=== PATIENT | female | born 1975 | race Caucasian/White ===

== ENCOUNTER 2022-10-23 15:06 | Outpatient (OUT) | payer OTHER, SELFPAY ==
[2022-10-23 15:40] LABS: Basophils Absolute Auto 0.1 10^3/uL (0.0-0.1); Basophils Percent Auto 1.1 % (0.2-2.0); Eosinophils Absolute Auto 0.1 10^3/uL (0.0-0.7); Eosinophils Percent Auto 2.2 % (0.9-7.0); Hematocrit 41.7 % (36.0-48.0); Hemoglobin 13.8 g/dL (12.0-16.0); Immature Granulocytes Abs Auto 0.01 10^3/uL (0.00-0.03); Immature Granulocytes Pct Auto 0.2 % (0.0-0.5); Lymphocytes Absolute Auto 1.5 10^3/uL (1.2-3.8); Lymphocytes Percent Auto 32.4 % (20.5-60.0); Mean Corpuscular HGB Conc 33.1 g/dL (29.9-35.2); Mean Corpuscular Hemoglobin 31.9 pg (26.7-34.0); Mean Corpuscular Volume 96.5 fL (81.0-99.0); Mean Platelet Volume 9.7 fL (9.5-13.5); Monocytes Absolute Auto 0.3 10^3/uL (0.3-0.8); Monocytes Percent Auto 7.4 % (1.7-12.0); Neutrophils Absolute Auto 2.6 10^3/uL (1.4-6.5); Neutrophils Percent Auto 56.7 % (43.0-75.0); Platelet Count 218 10^3/uL (150-450); Red Blood Count 4.32 10^6/uL (4.20-5.40); Red Cell Distribution Width 11.9 % (11.0-15.0); White Blood Count 4.6 10^3/uL (4.0-11.0)
[2022-10-23 15:50] LABS: Estimated Average Glucose 108 mg/dL; Glycohemoglobin A1C 5.4 % (4.5-6.2)
[2022-10-23 16:16] LABS: Alanine Aminotransferase 23 U/L (14-59); Albumin Globulin Ratio 1.2; Alkaline Phosphatase 28 U/L (46-116); Anion Gap 7.2; Aspartate Amino Transferase 13 U/L (15-37); BUN Creatinine Ratio 8.7; Bilirubin Direct 0.1 mg/dL (0.0-0.2); Bilirubin Total 0.4 mg/dL (0.2-1.0); Calcium 9.2 mg/dL (8.5-10.1); Carbon Dioxide 31.4 mmol/L (21.0-32.0); Chloride 104 mmol/L (98-107); Chol HDL Ratio 2.7; Cholesterol 202 mg/dL (<=200); Estimated GFR (African America >60 (>=60); Estimated GFR (Non-African Ame >60 (>=60); Globulin 3.3 g/dL; Glucose 131 mg/dL (74-106); HDL Cholesterol 74 mg/dL (40-60); Potassium 3.6 mmol/L (3.5-5.1); Sodium 139 mmol/L (136-145); Thyroid Stimulating Hormone 0.937 uIU/mL (0.358-3.740); Total Protein 7.3 g/dL (6.4-8.2); Triglycerides 92 mg/dL (<=150); VLDL CHOLESTEROL 18.4 mg/dL
== END 2022-10-23 15:07 | disposition home or self-care (01) ==
LOC: LAB 15:12
PROVIDERS: PCP Family Medicine; Visit Provider Family Medicine
DX: Z00.00 Encounter for general adult medical examination without abnormal findings (principal)
CPT/HCPCS: 36415; 80048; 80061; 80076; 83036; 84443; 85025

== ENCOUNTER 2023-05-03 19:59 | Outpatient (REF) | payer OTHER, SELFPAY ==
[2023-05-07 04:07] LABS: Age Gdln ACOG Testing Note (.); HPV Aptima Negative (Negative); IGP, Aptima HPV, rfx 16/18,45 Note (.)
== END 2023-05-03 20:00 | disposition home or self-care (01) ==
LOC: LAB 19:59
PROVIDERS: PCP Family Medicine; Visit Provider Obstetrics & Gynecology
DX: Z01.419 Encounter for gynecological examination (general) (routine) without abnormal findings (principal)
CPT/HCPCS: 87624; G0145

== ENCOUNTER 2023-06-11 10:56 | Outpatient (OUT) | payer OTHER, SELFPAY ==
--- OUTSIDE RECORDS SUMMARY | 2023-06-11 11:00 | XMS_ITS | CCD ---
Author Organization [facility] Care Team Providers Care Shroud Line Tier Name Role Phone ALEX MALIK Admitting Unavailable KING, ALEX Attending Unavailable AILEEN, DR LEVY Reid Primary Care Unavailable KING, ALEX Consulting Unavailable KADE, DR RAJESH Shirley Consulting Unavailable KING, ALEX Admitting Unavailable KING, ALEX Attending Unavailable AILEEN, DR LEVY Reid Primary Care Unavailable Rey Plata Consulting Unavailable KING, ALEX Consulting Unavailable KING, ALEX Admitting Unavailable KING, ALEX Attending Unavailable AILEEN, DR LEVY Reid Primary Care Unavailable KING, ALEX Consulting Unavailable KING, ALEX Attending Unavailable Problems Problem Classification Problem Date Documented Da te Episodic/Chronic Other screening for suspected conditions (not mental disorders or infectious disease) (12 sources) Encounter for screening mammogram for malignant neoplasm of breast; Translations: [Encounter for screening for malignant neoplasm of cervix] Onset: 12-12-2021 Episodic Residual codes; unclassified (1 source) Family history of malignant neoplasm of breast; Translations: [FAMILY HX MALIG NEOPLASM OF BREAST] Onset: 06-13-2022 Episodic Residual codes; unclassified (1 source) Family history of malignant neoplasm of ovary; Translations: [FAM HX MALIGNANT NEOPLASM OVARY] Onset: 06-13-2022 Episodic Residual codes; unclassified (1 source) Family history of malignant neoplasm of trachea, bronchus and lung; Translations: [FAM HX MALIG NEOPLSM TRACH BRON LNG] Onset: 06-13-2022 Episodic Results Test Name Value Interpretation Reference Range Facil ity MG MAMM SCREEN 3D JEWEL CADon 06-05-2022 MG MAMM SCREEN 3D JEWEL CAD Patient: LANETTE SHRESTHA Exam Date: 06/05/2022 : 1975 Gender:F Ordering : DR ALEX MALIK . Admission #: [id number] Family : Order #: [id number] CLICK HERE TO VIEW EXAM RADIOLOGY REPORT PROCEDURE: MAMMOGRAM SCREENING 3D BILATERAL CAD COMPARISON: MG MAMM DX 3D RT CAD, 12/12/2021. MAMMO POST BIOPSY RIGHT, 05/12/2021. MG MAMM SCREEN 3D JEWEL CAD, 04/29/2021. INDICATIONS: Screening mammography Calculator Name NCI Breast Cancer Risk Assessment Tool 5 Year Breast Cancer Risk 1.90% Lifetime Breast Cancer Risk 14.40% Personal Breast Cancer No Personal Ovarian Cancer No Treatments None Family Cancers Grandmother-maternal with breast cancer at age 65; Mother with ovarian cancer at age 67; Aunt-maternal with lung cancer at age 60. LOCATION: The [facility] BREAST COMPOSITION: Heterogeneously dense,which may obscure small masses. FINDINGS: DIAGNOSTIC CATEGORY 1--NEGATIVE. RIGHT BREAST: No significant suspicious finding. No significant change has occurred. LEFT BREAST: No significant suspicious finding. No significant change has occurred. RECOMMENDATIONS: ROUTINE MAMMOGRAM AND CLINICAL EVALUATION IN 12 MONTHS. PLEASE NOTE: A NORMAL MAMMOGRAM DOES NOT EXCLUDE THE POSSIBILITY OF BREAST CANCER. A CLINICALLY SUSPICIOUS PALPABLE LUMP SHOULD BE BIOPSIED. Dictated by: Rajesh Olvera M.D. on 06/05/2022 at 14:00 Approved by: Rajesh Olvera M.D. on 06/05/2022 at 14:03 [facility] PAP ACOG PANEL 2: 30 to 65on 05-06-2022 . . Normal [facility] Comment on above: Result Comment: Performed at: WB Performed By: #### [id number] #### [facility] [address] [address] [address] Maxi Franco Age Gdln ACOG Testing 30-65 Normal [facility] Comment on above: Performed By: #### [id number] #### [facility] [address] [address] [address] Maxi Franco DIAGNOSIS: Comment Normal [facility] Comment on above: Result Comment: NEGATIVE FOR INTRAEPITHE LIAL LESION OR MALIGNANCY. Performed at: WB Performed By: #### [id number] #### [facility] [address] [address] [address] Maxi Franco HPV Aptima Negative Normal Negative [facility] Comment on above: Result Comment: This nucleic acid amplif ication test detects fourteen high-risk HPV types (16,18,31,33,35,39,45,51,52,56,58,59,66,68) without differentiation. Performed at: =G Performed By: #### [id number] #### [facility] [address] [place] [address] Dr. Maxi Franco HPV Genotype Reflex Comment Normal [facility] Comment on above: Result Comment: Criteria not met, HPV Ge notype not performed. Performed at: WB Performed By: #### [id number] #### [facility] [address] [place] [address] Dr. Maxi Franco Methodology: Comment Normal [facility] Comment on above: Result Comment: This liquid based ThinPr ep(R) pap test was screened with the use of an image guided system. Performed at: WB Performed By: #### [id number] #### [facility] [address] [place] [address] Dr. Maxi Franco Note: Comment Normal [facility] Comment on above: Result Comment: The Pap smear is a scree luis manuel test designed to aid in the detection of premalignant and malignant conditions of the uterine cervix. It is not a diagnostic procedure and should not be used as the sole means of detecting cervical cancer. Both false-positive and false-negative reports do occur. . Performed at: WB Performed By: #### [id number] #### [facility] [address] [place] [address] Dr. Maxi Franco Performed by: Comment Normal [facility] Comment on above: Result Comment: Mark Mitchell Cytotechn ologist (ASCP) Performed at: WB Performed By: #### [id number] #### [facility] [address] [place] [address] Dr. Maxi Franco Specimen adequacy: Comment Normal [facility] Comment on above: Result Comment: Satisfactory for evaluat ion. Endocervical and/or squamous metaplastic cells (endocervical component) are present. Performed at: WB Performed By: #### [id number] #### [facility] [address] [place] [address] Dr. Maxi Franco MG MAMM DX 3D RT CADon 12-12 MG MAMM DX 3D RT CAD Patient: LANETTE SHRESTHA Exam Date: 12/12/2021 : 1975 Gender:F Ordering : DR ALEX MALIK . Admission #: [id number] Family : Order #: [id number] CLICK HERE TO VIEW EXAM RADIOLOGY REPORT PROCEDURE: MAMMOGRAM DIAGNOSTIC 3D RIGHT CAD COMPARISON: MAMMO POST BIOPSY RIGHT, 05/12/2021. MG MAMM SCREEN 3D JEWEL CAD, 04/29/2021. INDICATIONS: Abnormal findings on diagnostic imaging of breast Calculator Name NCI Breast Cancer Risk Assessment Tool 5 Year Breast Cancer Risk 1.90% Lifetime Breast Cancer Risk 14.40% Personal Breast Cancer No Personal Ovarian Cancer No Treatments None Family Cancers Grandmother-maternal with breast cancer at age 65; Mother with ovarian cancer at age 67; Aunt-maternal with lung cancer at age 60. LOCATION: [facility] BREAST COMPOSITION: Heterogeneously dense,which may obscure small masses. FINDINGS: DIAGNOSTIC CATEGORY 2--BENIGN FINDING. NO CHANGE FROM COMPARISON. Scattered benign-appearing nodules are present. Scattered benign-appearing calcifications are present. Stable micro clip marker upper outer quadrant, posterior breast. RECOMMENDATIONS: ROUTINE MAMMOGRAM AND CLINICAL EVALUATION , bilateral screening mammogram is due April of 2022. PLEASE NOTE: A NORMAL MAMMOGRAM DOES NOT EXCLUDE THE POSSIBILITY OF BREAST CANCER. A CLINICALLY SUSPICIOUS PALPABLE LUMP SHOULD BE BIOPSIED. Dictated by: Rey Plata MD on 12/12/2021 at 09:23 Approved by: Rey Plata MD on 12/12/2021 at 09:47 Normal [facility] Encounters Encounter Date Encounter Type Care Provider Facility Start: 05-03-2023 End: 05-03-2023 ambulatory ALEX KING Not Available Start: 06-05-2022 End: 06-06-2022 ambulatory ALEX KING Facility:[facility] Start: 04-29-2022 End: 04-29-2022 ambulatory ALEX KING Facility:[facility] Start: 12-12-2021 End: 12-13-2021 ambulatory ALEX KING Facility:[facility] Payers Date Payer Category Payer Unknown [id number] 2.16.84 [id number] 1975 Unknown [id number] 2.16.84 [id number] 1975 Unknown [id number] 2.16.84 [id number] 1975 Unknown [id number] 2.16.84 [id number] 1960 Private Health Insurance [id number] Summary Purpose Family History No Family History Records FoundNo Family History Records Found Advance Directives No Advanced Directives Records FoundNo Advanced Directives Records Found Additional Source Comments INFORMATION SOURCE (unrecogn ized section and content) DATE CREATED AUTHOR 06/14/2022 [facility] DATE CREATED AUTHOR AUTHOR'S FÉLIXIZ ATREX 05/04/2023 [facility] dicor Specialists [facility] FOR RECORDS PERTAINING TO PATIENTS WHO ARE OR HAVE BEEN ENROLLED IN A CHEMICAL DEPENDENCY/SUBSTANCEABUSE PROGRAM, SOME INFORMATION MAY BE OMITTED. This clinical summary was aggregated from multiple sources. Caution should be exercised in using it in the provision of clinical care. This summary normalizes information from multiple sources, and as a consequence, information in this document may materially change the coding, format and clinical context of patient data. In addition, data may be omitted in some cases. CLINICAL DECISIONS SHOULD BE BASED ON THE PRIMARY CLINICAL RECORDS. [facility] [employer] provides no warranty or guarantee of the accuracy or completeness of information in this document.
--- NOTE | 2023-06-11 11:03 | MM_ITS ---
Patient Name: LANETTE SHRESTHA MR#: [id number] : 1975 Exam Date: 06/11/2023 Ordering Doctor: DR Gutierrez Regalado . RADIOLOGY REPORT PROCEDURE: MM TOMOSYNTHESIS SCREENING BI COMPARISON: MG MAMM SCREEN 3D JEWEL CAD, 06/05/2022. MG MAMM DX 3D RT CAD, 12/12/2021. MAMMO POST BIOPSY RIGHT, 05/12/2021. MG MAMM SCREEN 3D JEWEL CAD, 04/29/2021. INDICATIONS: Screening Calculator Name NCI Breast Cancer Risk Assessment Tool 5 Year Breast Cancer Risk 1.80% Lifetime Breast Cancer Risk 14.00% Personal Breast Cancer No Personal Ovarian Cancer No Treatments None Family Cancers Grandmother-maternal with breast cancer at age 65; Mother with ovarian cancer at age 67; Aunt-maternal with lung cancer at age ~60. LOCATION: [facility] BREAST COMPOSITION: Heterogeneously dense,which may obscure small masses. FINDINGS: DIAGNOSTIC CATEGORY 1--NEGATIVE. RIGHT BREAST: No significant suspicious finding. No significant change has occurred. LEFT BREAST: No significant suspicious finding. No significant change has occurred. RECOMMENDATIONS: ROUTINE MAMMOGRAM AND CLINICAL EVALUATION IN 12 MONTHS. PLEASE NOTE: A NORMAL MAMMOGRAM DOES NOT EXCLUDE THE POSSIBILITY OF BREAST CANCER. A CLINICALLY SUSPICIOUS PALPABLE LUMP SHOULD BE BIOPSIED. Dictated by: Rajesh Olvera M.D. on 06/11/2023 at 15:15 Approved by: Rajesh Olvera M.D. on 06/11/2023 at 15:17
== END 2023-06-11 10:57 | disposition home or self-care (01) ==
LOC: MAMMO 10:56
PROVIDERS: PCP Family Medicine; Visit Provider Obstetrics & Gynecology
DX: Z12.31 Encounter for screening mammogram for malignant neoplasm of breast (principal); Z80.3 Family history of malignant neoplasm of breast; Z80.1 Family history of malignant neoplasm of trachea, bronchus and lung; Z80.41 Family history of malignant neoplasm of ovary
CPT/HCPCS: 77063; 77067

== ENCOUNTER 2023-11-12 14:08 | Outpatient (OUT) | payer OTHER, SELFPAY ==
--- OUTSIDE RECORDS SUMMARY | 2023-11-12 14:17 | XMS_ITS | CCD ---
Author Organization [facility] Care Team Providers Care Warp Dyeing Vat Tender Name Role Phone ALEX MALIK Admitting Unavailable KING, ALEX Attending Unavailable AILEEN, DR LEVY Reid Primary Care Unavailable KING, ALEX Consulting Unavailable KADE, DR RAJESH Shirley Consulting Unavailable KING, ALEX Admitting Unavailable KING, ALEX Attending Unavailable NADERER, DR LEVY Reid Primary Care Unavailable Rey Plata Consulting Unavailable KING, ALEX Consulting Unavailable KING, ALEX Admitting Unavailable KING, ALEX Attending Unavailable NADRUBEN, DR LEVY Reid Primary Care Unavailable KING, [...] : DR ALEX MALIK . Admission #: [id number] Family : Order #: [id number] CLICK HERE TO VIEW EXAM RADIOLOGY REPORT [...] lung cancer at age 59. LOCATION: [facility] BREAST COMPOSITION: Heterogeneously dense,which may obscure [...] Rajesh Olvera M.D. on 06/05/2022 at 14:03 [facility] PAP ACOG PANEL 2: 30 to 65on 05-06-2022 . . Normal [facility] Comment on above: Result Comment: Performed at: WB Performed By: #### [id number] #### [facility] [address] [address] [address] Maxi Franco Age Gdln ACOG Testing 30-65 Normal [facility] Comment on above: Performed By: #### [id number] #### [facility] [address] [place], [place] [address] Dr. Maxi Franco DIAGNOSIS: Comment Normal [facility] Comment on above: Result Comment: NEGATIVE FOR INTRAEPITHE LIAL LESION OR MALIGNANCY. Performed at: WB Performed By: #### [id number] #### [facility] [address] [id number] Maxi Franco HPV Aptima Negative Normal Negative [facility] Comment on above: Result Comment: This nucleic acid amplif ication test detects fourteen high-risk HPV types (16,18,31,33,35,39,45,51,52,56,58,59,66,68) without differentiation. Performed at: =G Performed By: #### [id number] #### [facility] [address] [place] [address] Dr. Maxi Franco HPV Genotype Reflex Comment Normal [facility] Comment on above: Result Comment: Criteria not met, HPV Ge notype not performed. Performed at: WB Performed By: #### [id number] #### [facility] [address] [place] [address] Dr. Maxi Franco Methodology: Comment Normal [facility] Comment on above: Result Comment: This liquid based ThinPr ep(R) pap test was screened with the use of an image guided system. Performed at: WB Performed By: #### [id number] #### [facility] [address] [place] [address] Dr. Maxi Franco Note: Comment Normal [facility] Comment on above: Result Comment: The [...] Performed at: WB Performed By: #### [id number] #### [facility] [address] [place] [address] Dr. Maxi Franco Performed by: Comment Normal [facility] Comment on above: Result Comment: Mark Mitchell Cytotechn ologist (ASCP) Performed at: WB Performed By: #### [id number] #### [facility] [address] [place] [address] Dr. Maxi Franco Specimen adequacy: Comment Normal [facility] Comment on above: Result Comment: Satisfactory for evaluat ion. Endocervical and/or squamous metaplastic cells (endocervical component) are present. Performed at: WB Performed By: #### [id number] #### [facility] [address] [place] [address] Dr. Maxi Franco MG MAMM DX 3D RT CADon 12-12 MG MAMM DX 3D RT CAD Patient: LANETTE SHRESTHA Exam Date: 12/12/2021 : 1975 Gender:F Ordering : DR ALEX MALIK . Admission #: [id number] Family : Order #: [id number] CLICK HERE TO VIEW EXAM RADIOLOGY REPORT [...] lung cancer at age 59. LOCATION: [facility] BREAST COMPOSITION: Heterogeneously dense,which may obscure [...] MD on 12/12/2021 at 09:47 Normal [facility] Encounters Encounter Date Encounter Type Care Provider Facility Start: 05-03-2023 End: 05-03-2023 ambulatory ALEX KING Not Available Start: 06-05-2022 End: 06-06-2022 ambulatory ALEX KING Facility:[facility] Start: 04-29-2022 End: 04-29-2022 ambulatory ALEX KING Facility:[facility] Start: 12-12-2021 End: 12-13-2021 ambulatory ALEX KING Facility:[facility] Payers Date Payer Category Payer Unknown [id number] 2.16.84 [id number] 1975 Unknown [id number] 2.16.84 [id number] 1975 Unknown [id number] 2.16.84 [id number] 1975 Unknown [id number] 2.16.84 [id number] 1960 Private Health Insurance [id number] Summary Purpose Family History No Family History Records FoundNo Family History Records Found Advance Directives No Advanced Directives Records FoundNo Advanced Directives Records Found Additional Source Comments INFORMATION SOURCE (unrecogn ized section and content) DATE CREATED AUTHOR 06/14/2022 [facility] DATE CREATED AUTHOR AUTHOR'Noman VICTOR 05/04/2023 [facility] dical Specialists [facility] FOR RECORDS PERTAINING TO PATIENTS WHO [...] BE BASED ON THE PRIMARY CLINICAL RECORDS. [facility] [employer] provides no warranty or guarantee of the accuracy or completeness of information in this document.
[2023-11-12 14:36] LABS: Basophils Percent Auto 0.8 % (0.2-2.0); Eosinophils Absolute Auto 0.1 10^3/uL (0.0-0.7); Eosinophils Percent Auto 2.1 % (0.9-7.0); Hematocrit 40.5 % (36.0-48.0); Hemoglobin 13.6 g/dL (12.0-16.0); Lymphocytes Absolute Auto 1.3 10^3/uL (1.2-3.8); Lymphocytes Percent Auto 34.4 % (20.5-60.0); Mean Corpuscular HGB Conc 33.6 g/dL (29.9-35.2); Mean Corpuscular Hemoglobin 32.2 pg (26.7-34.0); Mean Platelet Volume 9.9 fL (9.5-13.5); Monocytes Absolute Auto 0.3 10^3/uL (0.3-0.8); Monocytes Percent Auto 7.9 % (1.7-12.0); Neutrophils Absolute Auto 2.1 10^3/uL (1.4-6.5); Neutrophils Percent Auto 54.8 % (43.0-75.0); Platelet Count 208 10^3/uL (150-450); Red Blood Count 4.22 10^6/uL (4.20-5.40); Red Cell Distribution Width 11.6 % (11.0-15.0); White Blood Count 3.9 10^3/uL (4.0-11.0)
[2023-11-12 15:08] LABS: Alanine Aminotransferase 24 U/L (14-59); Albumin Globulin Ratio 1.2; Albumin Level 3.7 g/dL (3.4-5.0); Alkaline Phosphatase 41 U/L (46-116); Anion Gap 9.1; Aspartate Amino Transferase 18 U/L (15-37); BUN Creatinine Ratio 9.9; Bilirubin Direct 0.1 mg/dL (0.0-0.2); Bilirubin Total 0.3 mg/dL (0.2-1.0); Calcium 9.1 mg/dL (8.5-10.1); Carbon Dioxide 32.8 mmol/L (21.0-32.0); Chloride 104 mmol/L (98-107); Cholesterol 196 mg/dL (<=200); Estimated GFR (African America >60 (>=60); Estimated GFR (Non-African Ame >60 (>=60); Glucose 126 mg/dL (74-106); HDL Cholesterol 66 mg/dL (40-60); Potassium 3.9 mmol/L (3.5-5.1); Sodium 142 mmol/L (136-145); Thyroid Stimulating Hormone 1.167 uIU/mL (0.358-3.740); Total Protein 6.7 g/dL (6.4-8.2); Triglycerides 130 mg/dL (<=150)
[2023-11-12 15:23] LABS: Estimated Average Glucose 108 mg/dL; Glycohemoglobin A1C 5.4 % (4.5-6.2)
== END 2023-11-12 14:09 | disposition home or self-care (01) ==
LOC: LAB 14:11
PROVIDERS: PCP Family Medicine; Visit Provider Family Medicine
DX: Z00.00 Encounter for general adult medical examination without abnormal findings (principal)
CPT/HCPCS: 36415; 80048; 80061; 80076; 83036; 84443; 85025

== ENCOUNTER 2023-12-13 09:51 | Outpatient (OUT) | payer OTHER, SELFPAY ==
--- OUTSIDE RECORDS SUMMARY | 2023-12-13 10:10 | XMS_ITS | CCD ---
Author Organization [facility] Care Team Providers Care Wall Crane Operator Name Role Phone KING, ALEX Admitting Unavailable KING, ALEX Attending Unavailable AILEEN, DR ROWDY Reid Primary Care Unavailable KING, ALEX Consulting Unavailable KADE, DR RAJESH Shirley Consulting Unavailable KING, ALEX Admitting Unavailable KING, ALEX Attending Unavailable AILEEN, DR ROWDY Reid Primary Care Unavailable Rey Plata Consulting Unavailable KING, ALEX Consulting Unavailable KING, ALEX Admitting Unavailable KING, ALEX Attending Unavailable AILEEN, DR ROWDY Reid Primary Care Unavailable KING, ALEX Consulting Unavailable MD Rowdy Gallagher Primary Care Provider DO Sergey Valenzuela Attending Provider ALEX MALIK Attending Unavailable ROWDY GALLAGHER Attending Unavailable CHERRIE MCKEON Attending Unavailable SERGEY VALENZUELA MARC Referring Unavailable Sergey Valenzuela Admitting Unavailab Sergey Cameron Attending Unavailab Rowdy Blankenship Primary Care Unavailable Sergey Valenzuela Attending Unavailab Rowdy Blankenship Primary Care Unavailable Sergey Valenzuela Admitting Unavailab le Allergies Allergy Classification Reported Allergen(s) Allergy Type Date of Onset Reaction(s) Facility (1 source) Unable to Assess Drug allergy (disorder) 12-10-2023 [facility] Repository Problems Problem Classification Problem Date Documented Da te Episodic/Chronic Other eye disorders (1 source) Third [oculomotor] nerve palsy, left eye; Translations: [Third [oculomotor] nerve palsy, left eye] Onset: 11-18-2023 Episodic Other screening for suspected conditions (not mental [...] Name Value Interpretation Reference Range Facil ity MR head/brain wo/w conon MR head/brain wo/w con [facility] [place] [address] [place] [address] MRI Report Signed Patient: Leesa Shrestha MR#: [id number] 0 : 1975 Acct:[id number] Age/Sex: 48 / F ADM Date: 12/10/23 Loc: MR Room: Type: [facility] Attending Dr: Sergey Valenzuela DO Copies to: Sergey Valenzuela DO Ordering Provider: Sergey Valenzuela DO Date of Service: 12/10/23 MR/MR head/brain wo/w con: H49.02, Z82.49 MRI BRAIN WITHOUT AND WITH INTRAVENOUS CONTRAST CLINICAL DATA: Left thigh blurred vision for the past month. COMPARISON: CT 11/18/2023 Multiecho, multiplanar imaging of the brain was performed before and after intravenous administration of 15 mL of ProHance. The ventricles are normal in size and position. There are no areas of abnormal signal intensity or enhancement within the supra or infratentorial brain. There is no restricted diffusion to suggest a recent ischemic event. No extra-axial collections or mass effect are seen. No midline abnormalities are noted. The imaged paranasal sinuses and mastoid air cells are clear. MR/MR head/brain wo/w con IMPRESSION: NO ACUTE INTRACRANIAL FINDINGS. Impression dictated by: Rica Caldera M.D.12/10/2023 8:14 AM Dictation Location: RADIO--10 Transcribed By: [facility] 12/10/23813 Dictated By: Rica Caldera MD 12/10/23801 Signed By: 12/10/23813 Normal [facility] CT angio neckon 11-18-2023 CT angio neck [facility] [place] [address] [place] [address] CT Scan Report Signed Patient: Leesa Shrestha MR#: [id number] 0 : 1975 Acct:[id number] Age/Sex: 47 / F ADM Date: 11/18/23 Loc: CT Room: Type: [facility] Attending Dr: Sergey Valenzuela DO Copies to: Sergey Valenzuela DO Ordering Provider: Sergey Valenzuela DO Date of Service: 11/18/23 CT/CT angio neck: OCULARMOTOR ([id number]) CT/CT angio head: OCULARMOTOR CT angio head, CT angio neck 11/18/2023 4:51 PM SIGNS AND SYMPTOMS: 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 Blurred vision in left eye CONTRAST: 90 mL of intravenous Isovue-370 TECHNIQUE: Multi-detector CT angiography axial slices of the head and neck were obtained before and during intravenous administration of IV contrast material. Sagittal, coronal, and 3-D reconstructions were performed and viewed on a separate workstation. CT was performed with one or more of the following dose reduction techniques: Automated exposure control, adjustment of the mA and/or kV according to patient size, or use of iterative reconstruction technique. Stenoses were measured using the NASCET criteria. COMPARISON: None. FINDINGS: Noncontrast head CT: There is no shift of the midline structures, acute intracranial bleeding, mass effects, or evidence of acute ischemia. The ventricular system is normal in size. The brainstem and the cerebellum are unremarkable. The visualized intraorbital contents, the visualized paranasal sinuses, and the visualized soft tissue in the infratemporal spaces show no abnormality. The osseous structures in the skull base and the calvarium show no acute abnormality. CTA HEAD: The superior cerebellar arteries, posterior inferior cerebellar arteries, and the basilar artery are within normal limits. The posterior cerebral arteries are unremarkable. The intracranial segments of the internal carotid arteries are within normal limits. There are normal anterior and middle cerebral arteries. Anterior communicating artery is patent. Posterior communicating arteries are present. The deep venous system and dural venous systems appear to be patent. No bony abnormalities are appreciated. CTA NECK: There is a normal three-vessel arch. The subclavian arteries are within normal limits. The vertebral arteries arise from the subclavian arteries and are normal in course and caliber up to the skull base. The common and internal carotid arteries are within normal limits. Visualized lung parenchyma is clear. Mild degenerative changes are noted in the cervical spine are greatest at C5-C6 and C6-C7. No acute bony abnormalities are identified. The paraspinous soft tissues are within normal limits. CT/CT angio head IMPRESSION: No acute intracranial pathology. No evidence of focal stenosis, aneurysmal dilatation, dissection or occlusion. Impression dictated by: Doc Gallardo M.D.11/18/2023 5:47 PM Dictation Location: [place] [address] Transcribed By: [facility] 11/18/231746 Dictated By: Doc Gallardo II, MD 11/18/231739 Signed By: 11/18/231746 Normal [facility] MG MAMM SCREEN 3D JEWEL CADon 06-05-2022 MG MAMM SCREEN 3D JEWEL CAD Patient: LEESA SHRESTHA Exam Date: 06/05/2022 : 1975 Gender:F Ordering : DR ALEX MALIK . Admission #: [id number] Family : Order #: [id number] CLICK HERE TO VIEW EXAM RADIOLOGY REPORT [...] lung cancer at age 59. LOCATION: [facility] BREAST COMPOSITION: Heterogeneously dense,which may obscure small [...] Rajesh Olvera M.D. on 06/05/2022 at 14:03 [facility] PAP ACOG PANEL 2: 30 to 65on 05-06-2022 . . Normal [facility] Comment on above: Result Comment: Performed at: WB Performed By: #### [id number] #### [facility] [address] [address] [address] Maxi Franco Age Gdln ACOG Testing 30-65 [facility] Comment on above: Performed By: #### [id number] #### [facility] [address] [address] [address] Maxi Franco DIAGNOSIS: Comment [facility] Comment on above: Result Comment: NEGATIVE FOR INTRAEPITHE LIAL LESION OR MALIGNANCY. Performed at: WB Performed By: #### [id number] #### [facility] [address] [address] [address] Maxi Franco HPV Aptima Negative Normal Negative [facility] Comment on above: Result Comment: This nucleic acid amplif ication test detects fourteen high-risk HPV types (16,18,31,33,35,39,45,51,52,56,58,59,66,68) without differentiation. Performed at: =G Performed By: #### [id number] #### [facility] [address] [address] [address] Maxi Franco HPV Genotype Reflex Comment Normal [facility] Comment on above: Result Comment: Criteria not met, HPV Ge notype not performed. Performed at: WB Performed By: #### [id number] #### [facility] [address] [address] [address] Maxi Franco Methodology: Comment Normal [facility] Comment on above: Result Comment: This liquid based ThinPr ep(R) pap test was screened with the use of an image guided system. Performed at: WB Performed By: #### [id number] #### [facility] [address] [place] [address] Dr. Maxi Franco Note: Comment [facility] Comment on above: Result Comment: The Pap smear is a scree luis manuel test designed to aid in the detection of premalignant and malignant conditions of the uterine cervix. It is not a diagnostic procedure and should not be used as the sole means of detecting cervical cancer. Both false-positive and false-negative reports do occur. . Performed at: WB Performed By: #### [id number] #### [facility] [address] [place] [address] Dr. Maxi Franco Performed by: Comment Normal [facility] Comment on above: Result Comment: Mark Mitchell Cytotechn ologist (ASCP) Performed at: WB Performed By: #### [id number] #### [facility] [address] [place] [address] Dr. Maxi Franco Specimen adequacy: Comment Normal [facility] Comment on above: Result Comment: Satisfactory for evaluat ion. Endocervical and/or squamous metaplastic cells (endocervical component) are present. Performed at: WB Performed By: #### [id number] #### [facility] [address] [place] [address] Dr. Maxi Franco MG MAMM DX 3D RT CADon 12-12 MG MAMM DX 3D RT CAD Patient: LEESA SHRESTHA Exam Date: 12/12/2021 : 1975 Gender:F Ordering : DR ALEX MALIK . Admission #: [id number] Family : Order #: [id number] CLICK HERE TO VIEW EXAM RADIOLOGY REPORT [...] lung cancer at age 59. LOCATION: [facility] BREAST COMPOSITION: Heterogeneously dense,which may obscure small [...] PALPABLE LUMP SHOULD BE BIOPSIED. Dictated by: Rye Plata MD on 12/12/2021 at 09:23 Approved by: Rey Plata MD on 12/12/2021 at 09:47 Normal [facility] Vital Signs Date Time Vital Sign Value Performing Clinician Faci lity 12-10-2023 07:28-0400 Body height 162.56 cm MD Rowdy Gallagher Work Phone: [facility] 12-10-2023 07:28-0400 Body weight 72.12 kg MD Rowdy Gallagher Work Phone: [facility] Encounters Encounter Date Encounter Type Care Provider Facility Start: 12-10-2023 End: 12-10-2023 Patient encounter procedure MD Rowdy Gallagher Work Phone: [facility] [place] Work Phone: Start: 12-10-2023 End: 12-10-2023 ambulatory MD Rowdy Gallagher Work Phone: [facility] Work Phone: Start: 11-18-2023 End: 11-18-2023 Patient encounter procedure MD Rowdy Gallagher Work Phone: [facility] [place] Work Phone: Start: 11-18-2023 End: 11-18-2023 ambulatory MD Rowdy Gallagher Work Phone: [facility] Work Phone: Start: 11-18-2023 End: 11-18-2023 ambulatory SERGEY VALENZUELA Not Available Start: 11-17-2023 End: 11-17-2023 ambulatory CHERRIE MCKEON Not Available Start: 11-12-2023 End: 11-12-2023 ambulatory ROWDY GALLAGHER Not Available Start: 05-03-2023 End: 05-03-2023 ambulatory ALEX KING Not Available Start: 06-05-2022 End: 06-06-2022 ambulatory ALEX KING Facility:[facility] Start: 04-29-2022 End: 04-29-2022 ambulatory ALEX KING Facility:[facility] Start: 12-12-2021 End: 12-13-2021 ambulatory ALEX KING Facility:[facility] Procedures Date Procedure Procedure Detail Performing Clinician Start: 12-10-2023 MRI of head MD Rowdy dykes Work Phone: Start: 11-18-2023 CT angiography of head MD Rowdy Gallagher Work Phone: Start: 11-18-2023 CT angiography of ne ck vessels MD Rowdy Gallagher Work Phone: Payers Date Payer Category Payer Self-pay 1975 Unknown [id number] 1975 Unknown [id number] 1975 Unknown [id number] 1975 Unknown [id number] 1975 Unknown [id number] 1975 Unknown [id number] 1975 Unknown [id number] 1960 Private Health Insurance [id number] Unknown O [id number] Unknown [place] BC/BS [id number] Unknown [id number] Unknown [id number] Social History Date Type Detail Facility Tobacco smoking stat [facility] Unknown if ever smoked [facility] Work Phone: Start: 1975 Sex Assigned At Female F [facility] Evaluation note Note Date & Type Note Facility Evaluation note No assessment information availa ble [facility] Work Phone: Summary Purpose Family History No Family History Records FoundNo Family History Records FoundNo Family History Records Found Advance Directives No Advanced Directives Records Found Advance Directive Response Recorded Date/ Time Advance Directives No November 18, 2023 8:09pm Advance Directive Response Recorded Date/ Time Advance Directives No November 4:10pm Chief Complaint and Reason for Visit Chief Complaint H49.02 Z82.49 Chief Complaint H49.02 Z82.49 h49.02 z82.49 Additional Source Comments INFORMATION SOURCE (unrecogn ized section and content) DATE CREATED AUTHOR 06/14/2022 [facility] DATE CREATED AUTHOR AUTHOR'S ORGANIZ ATION 11/19/2023 [facility] EPIC DATE CREATED AUTHOR AUTHOR'S ORGANIZ ATION 12/12/2023 [facility] Care Teams (unrecognized sec tion and content) Team Status: Active Member Role Status Dates Rowdy Gallagher MD Primary Care Provider Active Team Status: Inactive Member Role Status Dates Rowdy Gallagher MD Primary Care Provider Active S tart: November 18, 2023 End: November 18, 2023 Sergey Valenzuela DO Attending Provider Active Start: November 18, 2023 End: November 18, 2023 Team Status: Inactive Member Role Status Dates Rowdy Gallagher MD Primary Care Provider Active S tart: December 10, 2023 End: December 10, 2023 Sergey Valenzuela DO Attending Provider Active Start: December 10, 2023 End: December 10, 2023 Goals (unrecognized section and content) Goals may be documented in a n alternate sectionGoals may be documented in an alternate section FOR RECORDS PERTAINING TO PATIENTS WHO ARE [...] BE BASED ON THE PRIMARY CLINICAL RECORDS. [facility] [employer] provides no warranty or guarantee of the accuracy or completeness of information in this document.
== END 2023-12-13 09:52 | disposition home or self-care (01) ==
LOC: PST 09:51
PROVIDERS: PCP Family Medicine; Visit Provider Surgery
DX: Z01.818 Encounter for other preprocedural examination (principal); Z12.11 Encounter for screening for malignant neoplasm of colon

== ENCOUNTER 2024-05-04 19:48 | Outpatient (REF) | payer OTHER, SELFPAY ==
--- OUTSIDE RECORDS SUMMARY | 2024-05-04 19:52 | XMS_ITS | CCD ---
Author Organization [facility] Care Team Providers Care [employer] Utility Supervisor Name Role Phone KING, ALEX Admitting Unavailable KING, ALEX Attending Unavailable DR ROWDY GALLAGHER Primary Care Unavailable KING, ALEX Consulting Unavailable KADE, DR RAJESH Shirley Consulting Unavailable KING, ALEX Admitting Unavailable KING, ALEX Attending Unavailable AILEEN, DR ROWDY Reid Primary Care Unavailable Rey Plata Consulting Unavailable KING, ALEX Consulting Unavailable KING, ALEX Admitting Unavailable KING, ALEX Attending Unavailable AILEEN, DR ROWDY Reid Primary Care Unavailable KING, ALEX Consulting MD Rowdy Thakur Primary Care Provider [phone] DO Sergey Valenzuela Attending Provider Sergey Valenzuela Admitting UnavailSergey Small Attending Rowdy Min Primary Care Unavailable Sergey Valenzuela Attending Rowdy Min Primary Care Unavailable Sergey Valenzuela Admitting Unavailab Rowdy Blankenship MD Primary Care Provider [phone] ALEX REGALADO Attending Unavailable ROWDY GALLAGHER Attending Unavailable CHERRIE LONG Attending Unavailable SERGEY VALENZUELA Attending ROWDY Thakur Referring SERGEY Griffith Attending ROWDY Thakur Attending Unavailable Allergies Allergy Classification Reported Allergen(s) Allergy Type Date of Onset Reaction(s) Facility (1 source) Unable to Assess Drug allergy (disorder) 12-10-2023 [facility] Repository Medications Current Medications Medication Drug Class(es) Dates Sig (Normalized) Sig (Original) ALPRAZolam 0.5 mg oral tablet (2 sources) Benzodiazepine Start: 01-06-2024 End: 01-11-2024 take 1 tablet by mouth three times daily as needed for anxiety ALPRAZolam (Xanax) 0.5 MG tablet Indications: Anxiety with flying (CMS/HCC) Take 1 tablet (0.5 mg) by mouth 3 (three) times a day as needed for anxiety for up to 5 days 15 tablet 01/06/2024 01/11/2024 Active bisacodyl 5 mg delayed release oral tablet (2 sources) Stimulant Laxative Start: 11-17-2023 End: 11-17-2023 take 1 tablet by mouth once bisacodyl (Dulcolax) 5 MG EC tablet Indications: Screening for malignant neoplasm of colon Take 1 tablet (5 mg) by mouth 1 time for 1 dose Do not crush, chew, or split. Take as detailed on clinic hand out for colonoscopy prep 1 tablet 11/17/2023 11/17/2023 Active levoFLOXacin 750 mg oral tablet (2 sources) Quinolone Antimicrobial Start: 01-06-2024 End: 01-13-2024 take 1 tablet by mouth once daily levoFLOXacin (Levaquin) 750 MG tablet Indications: Acute bronchitis due to other specified organisms Take 1 tablet (750 mg) by mouth Daily for 7 days 7 tablet 01/06/2024 01/13/2024 Active montelukast 10 mg oral tablet (17 sources) Leukotriene Receptor Antagonist Start: 01-12-2024 take 1 tablet by mouth once daily at bedtime montelukast (Singulair) 10 MG tablet Indications: Seasonal allergic rhinitis due to pollen TAKE 1 TABLET BY MOUTH EVERYDAY AT BEDTIME 21 tablet 4 01/12/2024 Active Start: 10-04-2023 take 1 tablet by dennis once daily at bedtime montelukast (Singulair) 10 MG tablet Indications: Seasonal allergic rhinitis due to pollen TAKE 1 TABLET BY MOUTH EVERYDAY AT BEDTIME 21 tablet 4 10/04/2023 Active Multiple Vitamin (Multi Vitamin) tablet (16 sources) Multiple Vitamin (Multi Vitamin) tablet 1 (one) time each day at the same time Active polyethylene glycol 3350 88847 mg powder for oral solution (2 sources) Osmotic Laxative Start: End: take 17 g by mouth once polyethylene glycol, PEG, 3350 (Glycolax) 17 GM/SCOOP powder Indications: Colonoscopy Take 238 g by mouth 1 (one) time for 1 dose Take as detailed from clinic hand out for colonoscopy prep 238 g 11/17/2023 11/17/2023 Active predniSONE 50 mg oral tablet (2 sources) Start: End: take 1 tablet by mouth once daily predniSONE (Deltasone) 50 MG tablet Indications: Acute bronchitis due to other specified organisms Take 1 tablet (50 mg) by mouth Daily for 6 days 6 tablet 01/06/2024 01/12/2024 Active rizatriptan 10 mg disintegrating oral tablet (18 sources) Serotonin-1b and Serotonin-1d Receptor Agonist Start: rizatriptan LEATHER WHITENER (Maxalt-LEATHER WHITENER) 10 MG disintegrating tablet Indications: Migraine without aura and without status migrainosus, not intractable (CMS/HCC) DISSOLVE 1 TABLET ON THE TONGUE NEEDED AT ONSET OF HEADACHE. MAY REPEAT IN 2 HOURS ONE TIME. 12 tablet 3 01/24/2024 Active Start: 09-08-2023 End: 01-24-2024 rizatriptan LEATHER WHITENER (Maxalt-LEATHER WHITENER) 10 MG disintegrating tablet Indications: Migraine without aura and without status migrainosus, not intractable (CMS/HCC) DISSOLVE 1 TABLET ON THE TONGUE NEEDED AT ONSET OF HEADACHE. MAY REPEAT IN 2 HOURS ONE TIME. 12 tablet 3 09/08/2023 01/24/2024 Discontinued SUMAtriptan 100 mg oral tablet (18 sources) Serotonin-1b and Serotonin-1d Receptor Agonist Start: 12-27-2023 End: 01-24-2024 take 1 tablet by mouth once daily, then take 1 tablet by mouth every two hours SUMAtriptan (Imitrex) 100 MG tablet Indications: Migraine without aura and without status migrainosus, not intractable (CMS/HCC) TAKE 1 TABLET BY MOUTH ONCE DAILY AT ONSET OF MIGRAINE MAY REPEAT 1 TABLET IN 2 HOURS 9 tablet 11 12/27/2023 01/24/2024 Discontinued End: 01-06-2024 SUMAtriptan (Imitrex) 25 MG tablet Take 25 mg by mouth 1 (one) time if needed for migraine May repeat dose once in 2 hours if no relief. Do not exceed 2 doses in 24 hours. 01/06/2024 Discontinued 24 hr venlafaxine 37.5 mg extended release oral capsule (16 sources) Serotonin and Norepinephrine Reuptake Inhibitor Start: 11-15-2023 take 1 capsule by mouth once daily venlafaxine XR (Effexor XR) 37.5 MG 24 hr capsule Indications: Menopausal and female climacteric states , Symptomatic menopausal or female climacteric states TAKE 1 CAPSULE BY MOUTH EVERY DAY 90 capsule 3 11/15/2023 Active Start: 10-22-2023 take 1 capsule by mo [facility] once daily venlafaxine XR (Effexor XR) 37.5 MG 24 hr capsule Take 37.5 mg by mouth Daily 10/22/2023 Active Problems Active Problems Problem Classification Problem Date Documented Da te Episodic/Chronic Acute bronchitis (5 sources) Acute infective bronchitis; Translations: [Acute bronchitis due to other specified organisms] Onset: 01-06-2024 01-06-2024 Episodic Anxiety disorders (5 sources) Anxiety; 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] Onset: 01-06-2024 01-06-2024 Chronic Blindness and vision defects (13 sources) Visual disturbance; Translations: [Unspecified visual disturbance] Onset: 11-16-2023 11-16-2023 Episodic Diabetes mellitus without complication (16 sources) Hyperglycemia; Translations: [Hyperglycemia, unspecified] Onset: 11-12-2023 11-12-2023 Episodic Gastritis and duodenitis (17 sources) Chronic superficial gastritis; Translations: [Chronic superficial gastritis without bleeding] Onset: 11-12-2023 11-12-2023 Chronic Headache; including migraine (18 sources) Migraine without aura, not refractory ; Translations: [Migraine without aura, not intractable, without status migrainosus] Onset: 02-26-2023 02-26-2023 Chronic Other eye disorders (1 source) Third [oculomotor] nerve palsy, left eye; Translations: [Third [oculomotor] nerve palsy, left eye] Onset: 11-18-2023 Episodic Other eye disorders (4 sources) Third cranial nerve weakness; Translations: [Third [oculomotor] nerve palsy, left eye] 12-30-2023 Episodic Other nervous system disorders (4 sources) H/O: migraine; Translations: [Personal history of other diseases of the nervous system and sense organs] 12-30-2023 Episodic Other upper respiratory disease (17 sources) Allergic rhinitis due to pollen; Translations: [Allergic rhinitis due to pollen] Onset: 11-12-2023 11-12-2023 Chronic Residual codes; unclassified (1 source) Family history [...] NEOPLSM TRACH BRON LNG] Onset: 06-13-2022 Episodic Residual codes; unclassified (4 sources) Family history of aneurysm of artery; Translations: [Family history of ischemic heart disease and other diseases of the circulatory system] 12-30-2023 Episodic Past or Other Problems Problem Classification Problem Date Documented Da te Episodic/Chronic Other circulatory disease (2 sources) Elevated blood pressure; Translations: [Elevated blood-pressure reading, without diagnosis of hypertension] 11-18-2023 Episodic Other screening for suspected conditions (not mental disorders or infectious disease) (16 sources) Encounter for screening mammogram for malignant neoplasm of breast; Translations: [Encounter for screening for malignant neoplasm of cervix] Onset: 12-12-2021 Episodic Results Test Name Value Interpretation Reference Range Facility MR head/brain wo/w conon MR head/brain wo/w con [facility] [address] MRI Report Signed Patient: Leesa Shrestha MR#: [id number] 0 : 1975 Acct:[id number] Age/Sex: 48 / F ADM Date: 12/10/23 Loc: MR Room: Type: [facility] Attending Dr: Sergey Valenzuela DO Copies to: [...] Rica Caldera M.D.12/10/2023 8:14 AM Dictation Location: [place] [address] Transcribed By: [facility] 12/10/23813 Dictated By: Rica Caldera MD 12/10/23801 Signed By: 12/10/23813 Normal [facility] CT angio neckon 11-18-[address] CT [address] [facility] [address] CT Scan Report Signed Patient: Leesa Shrestha MR#: [id number] 0 : 1975 Acct:[id number] Age/Sex: 47 / F ADM Date: 11/18/23 Loc: CT Room: Type: [facility] Attending Dr: Sergey Valenzuela DO Copies to: Sergey Valenzuela DO Ordering Provider: Sergey Valenzuela DO Date of Service: 11/18/23 CT/CT angio neck: OCULARMOTOR ([id number]) CT/CT angio head: OCULARMOTOR CT angio head, [...] Doc Gallardo M.D.11/18/2023 5:47 PM Dictation Location: [place] [address] Transcribed By: [facility] 11/18/231746 Dictated By: Doc Gallardo II, MD 11/18/231739 Signed By: 11/18/231746 Normal [facility] ALL CBC WITH AUTO DIFFon BASOPHILS ABSOLUTE AUTO 0.0 [facility] Basophils/100 WBC (Bld) 0.8 % 0.2 - 2.0 % [facility] Eosinophils/100 WBC (Bld) 2.1 % 0.9 - 7.0 % [facility] Erythrocyte distribution width (RBC) [Ratio] 11.6 % 11.0 - 15.0 % [facility] Hematocrit (Bld) [Volume fraction] 40.5 % 36.0 - 48.0 % [facility] Hemoglobin (Bld) [Mass/Vol] 13.6 g/dL 12.0 - 16.0 g/dL [facility] IMMATURE GRANULOCYTES ABS AUTO 0.00 [facility] Immature granulocytes/100 WBC (Bld) 0.0 % 0.0 - 0.5 % [facility] Interpretation and review of laboratory results Abnormal [facility] LYMPHOCYTES ABSOLUTE AUTO 1.3 [facility] Lymphocytes/100 WBC (Bld) 34.4 % 20.5 - 60.0 % [facility] MCH (RBC) [Entitic mass] 32.2 pg 26.7 - 34.[address] [facility] MCHC (RBC) [Mass/Vol] 33.6 g/dL 29.9 - 35.2 g/dL [facility] MCV (RBC) [Entitic vol] 96.0 fL 81.0 - 99.[address] [facility] MONOCYTES ABSOLUTE AUTO 0.3 [facility] Monocytes/100 WBC (Bld) 7.9 % 1.7 - 12.0 % [facility] NEUTROPHILS ABSOLUTE AUTO 2.1 [facility] Neutrophils/100 WBC (Bld) 54.8 % 43.0 - 75.0 % [facility] Platelet mean volume (Bld) [Entitic vol] 9.9 fL 9.5 - 13.5 fL [facility] EO # 0.1 [facility] PLT 208 [facility] TB RBC 4.22 [facility] WBC 3.9 Low [facility] MG MAMM SCREEN 3D JEWEL CADon 06-05-2022 MG MAMM SCREEN 3D JEWEL CAD Patient: LEESA SHRESTHA Exam Date: 06/05/2022 : 1975 Gender:F Ordering : DR ALEX REGALADO . Admission #: [id number] Family : Order #: [id number] CLICK HERE TO VIEW EXAM RADIOLOGY REPORT [...] with lung cancer at age 59. LOCATION: [facility] BREAST COMPOSITION: Heterogeneously dense,which may obscure small [...] Rajesh Olvera M.D. on 06/05/2022 at 14:03 Normal [facility] PAP ACOG PANEL 2: 30 to 65on 05-06-2022 . . Normal [facility] Comment on above: Result Comment: Perf ormed at: WB Performed By: #### [id number] #### [facility] [address] [place] [address] [address] Maxi Franco Age Gdln ACOG Testing 30-65 Normal [facility] Comment on above: Performed By: #### [id number] #### [facility] [address] [place] [address] [address] Maxi Franco DIAGNOSIS: Comment Normal [facility] Comment on above: Result Comment: NEGA TIVE FOR INTRAEPITHELIAL LESION OR MALIGNANCY. Performed at: WB Performed By: #### [id number] #### [facility] [address] [place] [address] [address] Maxi Franco HPV Aptima Negative Normal Negative [facility] Comment on above: Result Comment: This nucleic acid amplification test detects fourteen high-risk HPV types (16,18,31,33,35,39,45,51,52,56,58,59,66,68) without differentiation. Performed at: =G Performed By: #### [id number] #### [facility] [address] [place] [address] [address] Maxi Franco HPV Genotype Reflex Comment Normal [facility] Comment on above: Result Comment: Crit eria not met, HPV Genotype not performed. Performed at: WB Performed By: #### [id number] #### [facility] [address] [place] [address] Dr. Maxi Franco Methodology: Comment Normal [facility] Comment on above: Result Comment: This liquid based ThinPrep(R) pap test was screened with the use of an image guided system. Performed at: WB Performed By: #### [id number] #### [facility] [address] [place] [address] Dr. Maxi Franco Note: Comment Normal [facility] Comment on above: Result Comment: The Pap smear is a screening test designed to aid in the detection of premalignant and malignant conditions of the uterine cervix. It is not a diagnostic procedure and should not be used as the sole means of detecting cervical cancer. Both false-positive and false-negative reports do occur. . Performed at: WB Performed By: #### [id number] #### [facility] [address] [place] [address] Dr. Maxi Franco Performed by: Comment Normal [facility] Comment on above: Result Comment: Carolina Mitchell, Junior Architect (ASCP) Performed at: WB Performed By: #### [id number] #### [facility] [address] [place] [address] Dr. Maxi Franco Specimen adequacy: Comment Normal [facility] Comment on above: Result Comment: Sati sfactory for evaluation. Endocervical and/or squamous metaplastic cells (endocervical component) are present. Performed at: WB Performed By: #### [id number] #### [facility] [address] [place] [address] Dr. Maxi Franco MG MAMM DX 3D RT CADon 12-12 MG MAMM DX 3D RT CAD Patient: KEVIN SHRESTHA Exam Date: 12/12/2021 : 1975 Gender:F Ordering : DR ALEX REGALADO . Admission #: [id number] Family : Order #: [id number] CLICK HERE TO VIEW EXAM RADIOLOGY REPORT [...] lung cancer at age 59. LOCATION: [facility] BREAST COMPOSITION: Heterogeneously dense,which may obscure small [...] MD on 12/12/2021 at 09:47 Normal [facility] Vital Signs Date Time Vital Sign Value Performing Clinician Faci lity 01-06-2024 11:03-0400 Body height 162.6 cm Rowdy Gallagher MD Work Phone: [facility] 01-06-2024 11:03-0400 Body mass index (BMI) [Ratio] 26.43 kg/m2 Rowdy Gallagher MD Work Phone: [facility] 01-06-2024 11:03-0400 Body temperature 97.5 [degF] Rowdy Gallagher MD Work Phone: [facility] 01-06-2024 11:03-0400 Body weight 69.85 kg Rowdy Gallagher MD Work Phone: [facility] 01-06-2024 11:03-0400 Diastolic blood pressure 78 mm[Hg] Rowdy Gallagher MD Work Phone: [facility] 01-06-2024 11:03-0400 Heart rate 94 /min Rowdy Gallagher MD Work Phone: [facility] 01-06-2024 11:03-0400 Respiratory rate 22 /min Rowdy Gallagher MD Work Phone: [facility] 01-06-2024 11:03-0400 SaO2% (BldA) [Mass fraction] 98 % Rowdy Gallagher MD Work Phone: [facility] 01-06-2024 11:03-0400 Systolic blood pressure 128 mm[Hg] Rowdy Gallagher MD Work Phone: [facility] 12-30-2023 09:33-0400 Body mass index (BMI) [Ratio] 26.33 kg/m2 Christopher Bianca DO Work Phone: [facility] 12-30-2023 09:33-0400 Body weight 69.58 kg Christopher Bianca DO Work Phone: [facility] 12-30-2023 09:33-0400 Diastolic blood pressure 81 mm[Hg] Christopher Bianca DO Work Phone: [facility] 12-30-2023 09:33-0400 Heart rate 81 /min Christopher Bianca DO Work Phone: [facility] 12-30-2023 09:33-0400 SaO2% (BldA) [Mass fraction] 98 % Christopher Bianca DO Work Phone: [facility] 12-30-2023 09:33-0400 Systolic blood pressure 123 mm[Hg] Christopher Bianca DO Work Phone: [facility] 12-10-2023 07:28-0400 Body height 162.56 cm MD Rowdy Gallagher Work Phone: [facility] 12-10-2023 07:28-0400 Body weight 72.12 kg MD Rowdy Gallagher Work Phone: [facility] 11-18-2023 13:18-0400 Body height 162.6 cm Christopher Bianca DO Work Phone: [facility] 11-18-2023 13:18-0400 Body mass index (BMI) [Ratio] 25.58 kg/m2 Christobieer Bianca DO Work Phone: [facility] 11-18-2023 13:18-0400 Body weight 67.59 kg Christobieer Bianca DO Work Phone: [facility] 11-18-2023 13:18-0400 Diastolic blood pressure 101 mm[Hg] Christobieer Bianca DO Work Phone: [facility] 11-18-2023 13:18-0400 Heart rate 82 /min Sergey Valenzuela DO Work Phone: [facility] 11-18-2023 13:18-0400 Systolic blood pressure 148 mm[Hg] Christopher Bianca DO Work Phone: [facility] 11-17-2023 09:21-0400 Body height 162.6 cm Cherrie Mercedes DO Work Phone: [facility] 11-17-2023 09:21-0400 Body mass index (BMI) [Ratio] 25.58 kg/m2 Cherrie Mercedes DO Work Phone: [facility] 11-17-2023 09:21-0400 Body weight 67.59 kg Cherrie Long DO Work Phone: [facility] 11-17-2023 09:21-0400 Diastolic blood pressure 70 mm[Hg] Cherrie Mercedes DO Work Phone: [facility] 11-17-2023 09:21-0400 Heart rate 57 /min Cherrie Mercedes DO Work Phone: [facility] 11-17-2023 09:21-0400 Respiratory rate 16 /min Cherrie Mercedes DO Work Phone: [facility] 11-17-2023 09:21-0400 SaO2% (BldA) [Mass fraction] 98 % Cherrie Mercedes DO Work Phone: [facility] 11-17-2023 09:21-0400 Systolic blood pressure 126 mm[Hg] Cherrie Long DO Work Phone: [facility] 11-12-2023 10:33-0400 Body height 162.6 cm Rowdy Gallagher MD Work Phone: [facility] 11-12-2023 10:33-0400 Body mass index (BMI) [Ratio] 25.23 kg/m2 Rowdy Gallagher MD Work Phone: [facility] 11-12-2023 10:33-0400 Body temperature 97.3 [degF] Rowdy Gallagher MD Work Phone: [facility] 11-12-2023 10:33-0400 Body weight 66.68 kg Rowdy Gallagher MD Work Phone: [facility] 11-12-2023 10:33-0400 Diastolic blood pressure 80 mm[Hg] Rowdy Gallagher MD Work Phone: [facility] 11-12-2023 10:33-0400 Heart rate 87 /min Rowdy Gallagher MD Work Phone: [facility] 11-12-2023 10:33-0400 Respiratory rate 20 /min Rowdy Gallagher MD Work Phone: [facility] 11-12-2023 10:33-0400 SaO2% (BldA) [Mass fraction] 99 % Rowdy Gallagher MD Work Phone: [facility] 11-12-2023 10:33-0400 Systolic blood pressure 130 mm[Hg] Rowdy Gallagher MD Work Phone: [facility] Healthcare Encounters Encounter Date Encounter Type Care Provider Facility Start: 01-21-2024 End: 01-24-2024 Refill Rowdy Gallagher MD Work Phone: [facility] Comment on above: Migraine without aur a and without status migrainosus, not intractable (CMS/HCC) Start: 01-06-2024 End: 01-06-2024 Bamboo flowsheet Rowdy Gallagher MD Work Phone: [facility] Start: 01-06-2024 End: 01-06-2024 Bamboo flowsheet Rowdy Gallagher MD Work Phone: [facility] Start: 01-06-2024 End: 01-06-2024 Office outpatient visit 15 minutes Rowdy Gallagher MD Work Phone: [facility] Comment on above: Acute bronchitis due to other specified organisms (Primary Dx); Anxiety with flying ([facility] Start: 01-06-2024 End: 01-06-2024 ambulatory ROWDY GALLAGHER Not Available Start: 12-30-2023 End: 12-30-2023 Bamboo flowsheet Jorge Albertoobieer Bianca DO Work Phone: [facility] Start: 12-30-2023 End: 12-30-2023 Bamboo flowsheet Christopher Bianca DO Work Phone: [facility] Start: 12-30-2023 End: 12-30-2023 Office outpatient visit 25 minutes Christopher Bianca DO Work Phone: [facility] Comment on above: 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, left (Primary Dx); Family history of brain aneurysm; History of migraine Start: 12-30-2023 End: 12-30-2023 ambulatory SERGEY VALENZUELA Not Available Start: 12-10-2023 End: 12-10-2023 Patient encounter procedure MD Rowdy Gallagher Work Phone: [facility] Main [place] Work Phone: Start: 12-10-2023 End: 12-10-2023 ambulatory MD Rowdy Gallagher Work Phone: [facility] Work Phone: Start: 11-18-2023 End: 11-18-2023 Patient encounter procedure MD Rowdy Gallagher Work Phone: [facility] Main [place] Work Phone: Start: 11-18-2023 End: 11-18-2023 ambulatory MD Rowdy Gallagher Work Phone: [facility] Work Phone: Start: 11-18-2023 End: 11-18-2023 Bamboo flowsheet Sergey Valenzuela DO Work Phone: [facility] Start: 11-18-2023 End: 11-18-2023 Bamboo flowsheet Christopher Bianca DO Work Phone: [facility] Start: 11-18-2023 End: 11-18-2023 Office outpatient new 60 minutes Jorge Albertoopher Bianca DO Work Phone: [facility] Comment on above: 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, left (Primary Dx); Family history of brain aneurysm; Elevated blood pressure reading; History of migraine Start: 11-18-2023 End: 11-18-2023 ambulatory SERGEY VALENZUELA Not Available Start: 11-17-2023 End: 11-17-2023 Bamboo flowsheet Cherrie Mercedes DO Work Phone: [facility] Start: 11-17-2023 End: 11-17-2023 Bamboo flowsheet Cherrie Mercedes DO Work Phone: [facility] Start: 11-17-2023 End: 11-17-2023 Patient encounter procedure Cherrie Mercedes DO Work Phone: [facility] Comment on above: Screening for malign ant neoplasm of colon (Primary Dx) Start: 11-17-2023 End: 11-17-2023 ambulatory CHERRIE MERCEDES Not Available Start: 11-12-2023 End: 11-12-2023 Bamboo flowsheet Rowdy Galalgher MD Work Phone: [facility] Start: 11-12-2023 End: 11-12-2023 Bamboo flowsheet Rowdy Gallagher MD Work Phone: [facility] Start: 11-12-2023 End: 11-12-2023 Clinisync Result Encounter Rowdy Gallagher MD Work Phone: [facility] Unsolicited Start: 11-12-2023 End: 11-12-2023 Patient encounter procedure Rowdy Gallagher MD Work Phone: [facility] Start: 11-12-2023 End: 11-12-2023 Periodic preventive med est patient 40-64yrs Rowdy Gallagher MD Work Phone: [facility] Comment on above: Annual physical exam (Primary Dx); Colon cancer screening Start: 11-12-2023 End: 11-12-2023 ambulatory ROWDY GALLAGHER [...] ck vessels MD Rowdy Gallagher Work Phone: Start: 11-12-2023 ALL CBC WITH AUTO DIFF Rowdy Gallagher MD Work Phone: Start: 06-11-2023 Mammography Rowdy tavarez MD Work Phone: Plan of Treatment Date Care Activity Detail Author Start: 06-10-2024 Screening for malign ant neoplasm of breast Mammogram [facility] Start: 05-04-2024 End: 05-04-2024 Patient encounter procedure 05/04/2024 8:30 AM EST Office Visit [facility] [address] [place] [phone] Alex Regalado, DO [address] [place], [place] [id number] [facility] Start: 04-27-2024 End: 04-27-2024 Patient encounter procedure 04/27/2024 8:40 AM EST Office Visit [facility] [address] [place] [phone] Lakeshia Moise NP [address] [place], [place] [id number] [facility] [place] [facility] Start: 01-06-2024 End: 01-06-2024 Patient encounter procedure 01/06/2024 11:00 AM EDT Office Visit [facility] [address] [place] [phone] Rowdy Gallagher MD [address] [place] [address] Arrived [facility] Comment on above: Arrived Start: 12-30-2023 End: 12-30-2023 Patient encounter procedure 12/30/2023 9:30 AM EDT Office Visit [facility] [address] [place] [phone] Sergey Valenzuela DO [address] [place], [place] [id number] Arrived [facility] [place] [facility] Comment on above: Arrived Start: 12-06-2023 End: 12-06-2023 Patient encounter procedure 12/06/2023 10:30 AM EDT Office Visit [facility] [place] [facility] [address] [place] [phone] Sergey Valenzuela DO [address] [place] [address] [facility] [place] [facility] Start: 11-21-2023 Influenza vaccination Influenza Vacc ine (#1) [facility] Start: 11-18-2023 End: 11-17-2024 CTA Head vessels and Neck vessels WO and W contrast IV CT angiogram head and neck Imaging 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, left Family history of brain aneurysm Expected: 11/18/2023, Expires: 11/17/2024 [facility] Work Phone: Comment on above: Expected: 11/18/2023 , Expires: 11/17/2024 Start: 11-18-2023 End: 11-17-2024 MR Brain WO and W contrast IV MR brain w and wo contrast routine Imaging High Priority 3rd cranial nerve palsy, left Family history of brain aneurysm Expected: 11/18/2023, Expires: 11/17/2024 [facility] Comment on above: Expected: 11/18/2023 , Expires: 11/17/2024 Start: 11-18-2023 End: 11-18-2023 Patient encounter procedure 11/18/2023 1:30 PM EDT Office Visit [facility] [address] [place] [phone] Sergey Valenzuela DO [address] [place], [place] [id number] Arrived [facility] Comment on above: Arrived Start: 11-17-2023 End: 11-17-2023 Patient encounter procedure 11/17/2023 9:15 AM EDT Office Visit [facility] [address] [place] [phone] Cherrie Long DO [address] [place] [address] Arrived [facility] Comment on above: Arrived Start: 11-12-2023 End: 11-11-2024 Basic metabolic 1998 panel - Serum or Plasma Basic metabolic panel Lab Routine Annual physical exam Expected: 11/12/2023 (Approximate), Expires: 11/11/2024 [facility] Comment on above: Expected: 11/12/2023 (Approximate), Expires: 11/11/2024 Start: 11-12-2023 End: 11-11-2024 CBC W Auto Differential panel - Blood CBC and differential Lab Routine Annual physical exam Expected: 11/12/2023 (Approximate), Expires: 11/11/2024 [facility] Comment on above: Expected: 11/12/2023 (Approximate), Expires: 11/11/2024 Start: 11-12-2023 End: 11-11-2024 Hemoglobin A1c/Hemoglobin.total in Blood Hemoglobin A1c Lab Routine Annual physical exam Expected: 11/12/2023 (Approximate), Expires: 11/11/2024 [facility] Work Phone: Comment on above: Expected: 11/12/2023 (Approximate), Expires: 11/11/2024 Start: 11-12-2023 End: 11-11-2024 Hepatic function 2000 panel - Serum or Plasma Hepatic function panel Lab Routine Annual physical exam Expected: 11/12/2023 (Approximate), Expires: 11/11/2024 [facility] Comment on above: Expected: 11/12/2023 (Approximate), Expires: 11/11/2024 Start: 11-12-2023 End: 11-11-2024 Lipid 1996 panel - Serum or Plasma Lipid panel Lab Routine Annual physical exam Expected: 11/12/2023 (Approximate), Expires: 11/11/2024 [facility] Comment on above: Expected: 11/12/2023 (Approximate), Expires: 11/11/2024 Start: 11-12-2023 End: 11-11-2024 Thyrotropin [Units/volume] in Serum or Plasma TSH Lab Routine Annual physical exam Expected: 11/12/2023 (Approximate), Expires: 11/11/2024 [facility] Comment on above: Expected: 11/12/2023 (Approximate), Expires: 11/11/2024 Start: 11-12-2023 End: 11-12-2023 Patient encounter procedure 11/12/2023 10:15 AM EDT Office Visit [facility] [address] [place] [address] Rowdy Gallagher MD [address] [place] [address] Arrived [facility] Comment on above: Arrived Start: 2004 Screening for malign ant neoplasm of cervix [facility] Start: 12-06-1995 Screening for malign ant neoplasm of cervix Pap Smear [facility] Start: 1974 Screening for malign ant neoplasm of colon [facility] Immunizations Immunization Date Immunization Notes Care Provider Fa cility 12-29-2022 influenza virus vacc ine, unspecified formulation Rowdy Gallagher MD Work Phone: [facility] Payers Date Payer Category Payer Self-pay 2017 Managed Care HMO (unspecified) [id number] 1974 Unknown [id number] 1974 Unknown [id number] 1974 Unknown [id number] 1974 Unknown [id number] 1974 Unknown [id number] 1974 Unknown [id number] 1974 Unknown [id number] [id number] 1974 Unknown [id number] [id number] 1974 Unknown [id number] 1959 Private Health Insurance [id number] Unknown MMO [id number] Unknown Gerber BC/BS [id number] Unknown [id number] Unknown [id number] Social History Date Type Detail Facility Tobacco smoking stat us IDIS Unknown if ever smoked [facility] Work Phone: Start: 1975 Sex Assigned At Female [facility] Start: 04-08-2023 Tobacco smoking status NHIS Never smoked tobacco [facility] Start: 04-08-2023 Tobacco use and exposure Smokeless tobacco non-user [facility] Start: 11-17-2023 End: 11-18-2023 Alcoholic beverage intake Ex-drinker (finding) [facility] Start: 11-11-2023 End: 11-17-2023 History of Social function [facility] Start: 11-11-2023 End: 11-17-2023 [id number] Health Literacy [facility] How often do you nee d to have someone help you when you read instructions, pamphlets, or other written material from your doctor or pharmacy [SILS] Never [facility] Do you belong to any clubs or organizations such as mormonism groups, unions, fraternal or athletic groups, or school groups? No [facility] Are you now , , , , never or living with a partner? [facility] How often to you hav e a drink containing alcohol? Monthly or less [facility] How many standard dr inks containing alcohol do you have on a typical day? 1 or 2 [facility] How often do you hav e 6 or more drinks on 1 occasion? Never [facility] How hard is it for y ou to pay for the very basics like food, housing, medical care, and heating Not very hard [facility] Do you feel stress - tense, restless, nervous, or anxious, or unable to sleep at night because your mind is troubled all the time - these days [OSQ] Not at all [facility] (I/We) worried wheth er (my/our) food would run out before (I/we) got money to buy more. Never true [facility] Start: 04-08-2023 Alcohol Comment occasional [facility] Start: 1975 Sex assigned at Not on file [facility] Start: 04-08-2023 End: 11-12-2023 Alcoholic beverage intake Current drinker of alcohol (finding) [facility] Clinical Notes 11-12-2023 to 01-06-2024 Rowdy Gallagher MD - 01/06/2024 11:22 AM Brody Gallagher MD - 01/06/2024 11:00 AM ANNIE JAY - 01/06/2024 11:00 AM Santana Valenzuela DO - 12/30/2023 9:30 AM EDT Note Date & Type Note Facility 01-06-2024 History of Present illness Narrative Associated Problem(s): Acute bronchitis due to other specified organisms Take antibiotics for 7 days. Use prednisone for inflammation. Use sudafed or other decongestants as needed. Use Robitussin or Robitussin-DM for cough. Can use afrin for congestion but no longer than 3 days. Can use Mucinex to bring up phlegm. Use Motrin or Tylenol as needed for fever, aches, or pains. Increase fluid intake and rest. Should improve over next 5-7 days and if no better or worse call for re-evaluation. Images from the original note were not included. Subjective Patient ID: Leesa Shrestha is a 48 y.o. female who presents for Sinusitis and Cough. C/o cough, congestion, and rhinorrhea for several weeks. Afebrile. Severe fatigue and no energy. Frequent cough dry and nonproductive. Cough worse at night when laying down. Denies chest tightness or SOB. CARPENTER and sinus pressure in forehead and cheeks along with postnasal drip. Ears plugged and popping. Sore throat and pain to swallow. Mild nausea. Denies recent sick contacts. Using OTC medication and mild relief. No improvement in symptoms since onset. Upcoming flight and anxiety. Requests medication. Review of Systems Respiratory: Negative for cough, shortness of breath and wheezing. Cardiovascular: Negative for chest pain and palpitations. Gastrointestinal: Negative for abdominal pain, diarrhea, nausea and vomiting. Genitourinary: Negative for dysuria. Objective Physical Exam Constitutional: General: She is not in acute distress. Appearance: Normal appearance. HENT: Head: Normocephalic. Ears: Comments: TM clear bilaterally but bulging with fluid Mouth/Throat: Comments: Postnasal drip Eyes: Extraocular Movements: Extraocular movements intact. Pupils: Pupils are equal, round, and reactive to light. Cardiovascular: Rate and Rhythm: Normal rate and regular rhythm. Heart sounds: No murmur heard. No friction rub. No gallop. Pulmonary: Effort: Pulmonary effort is normal. Breath sounds: Normal breath sounds. No wheezing, rhonchi or rales. Abdominal: General: Bowel sounds are normal. There is no distension. Palpations: Abdomen is soft. Tenderness: There is no abdominal tenderness. There is no guarding or rebound. Musculoskeletal: Cervical back: Neck supple. Right lower leg: No edema. Left lower leg: No edema. Neurological: Mental Status: She is alert. Assessment/Plan Problem List Items Addressed This Visit Acute bronchitis due to other specified organisms - Primary Take antibiotics for 7 days. Use prednisone for inflammation. Use sudafed or other decongestants as needed. Use Robitussin or Robitussin-DM for cough. Can use afrin for congestion but no longer than 3 days. Can use Mucinex to bring up phlegm. Use Motrin or Tylenol as needed for fever, aches, or pains. Increase fluid intake and rest. Should improve over next 5-7 days and if no better or worse call for re-evaluation. Relevant Medications levoFLOXacin (Levaquin) 750 MG tablet predniSONE (Deltasone) 50 MG tablet Anxiety with flying (CMS/HCC) Relevant Medications ALPRAZolam (Xanax) 0.5 MG tablet s documented in this encounter [facility] 12-30-2023 History of Present illness Narrative Images from the original note were not included. Chief complaint: Visual disturbance Subjective Leesa Shrestha, 48 y.o., female Patient is here today for a follow up for visual disturbances. She had an MRI of the brain and CT angio of the head and neck completed for review. She states she believe her vision may have improved a bit. She is also wondering if she has just adjusted to this. The blurred vision in her left eye is still there just not as noticeable. She denies any dizziness or lightheadedness. She denies any new concerns at this time. Review of Systems Constitutional: Negative for appetite change, fatigue and fever. Eyes: Positive for visual disturbance. Respiratory: Negative for cough, shortness of breath and wheezing. Cardiovascular: Negative for chest pain, palpitations and leg swelling. Gastrointestinal: Negative for abdominal pain, constipation, diarrhea and nausea. Musculoskeletal: Negative for arthralgias, gait problem and myalgias. Neurological: Negative for dizziness, tremors, numbness and headaches. Past Medical History: Diagnosis Date Abdominal pain, generalized Anxiety with flying (CMS/HCC) BMI 23.0-23.9, adult Breast mass 2021 Chronic superficial gastritis without bleeding Dysmenorrhea Encounter for gynecological examination (general) (routine) without abnormal findings Migraine (CMS/HCC) Chronic Seasonal allergic rhinitis due to pollen Past Surgical History: Procedure Laterality Date BUNIONECTOMY HAND SURGERY Family History Problem Relation Name Age of Onset Hypertension Mother Binta Cagle Cancer Mother Binta Cagle Hyperlipidemia Father Gonzalo Cagle Cancer Maternal Grandmother Elian Heart Diabetes Paternal Grandmother Yoselyn Cagle Heart disease Paternal Grandfather Blaine Cagle Social History Tobacco Use Smoking status: Never Smokeless tobacco: Never Substance Use Topics Alcohol use: Not Currently Comment: occasional Allergies: Patient has no known allergies. Vitals: 12/30/23 0933 BP: 123/81 Pulse: 81 SpO2: 98% Body mass index is 26.33 kg/m . weight: 153 lb 6.4 oz Neurologic exam: Mental status: Awake, alert to person, place and time. Recent and remote memory are intact. Language is fluent without aphasia. Attention and concentration are normal. Fund of knowledge is appropriate for level of education. Cranial nerves: CN II: Visual acuity is normal. Visual doe full to confrontation. CN III, IV, : left pupil appears 3 mm and smaller than that of the right. Subtle left eye exotropia.No clear ptosis. No clear fatigability. Extraocular movements are otherwise intact.. CN V: Facial sensation is normal. CN VII: Full and symmetric facial movement. CN VIII: Hearing is normal to finger rub bilaterally: CN IX and X: Palate elevates symmetrically. CN XI: Shoulder shrug is normal bilaterally. CN XII: Tongue is midline without atrophy or fasciculation. Motor: Strength is 5/5 throughout. Bulk is normal. Sensory: Sensation is intact to light touch throughout Four extremities. Reflexes: Deep tendon reflexes are 2+ and symmetric throughout. Coordination: Kgzoyj-dw-kwee testing and rapid alternating movements are normal Gait: Normal Review and summary of old records: CT angiogram of the head and neck on 11/18/2023: No acute pathology. No evidence of focal stenosis, aneurysm, dissection occlusion. MRI of the brain with and without contrast on 12/10/2023: No acute intracranial abnormality. Assessment/Plan Diagnoses and all orders for this visit: 3rd cranial nerve palsy, left It is my impression that the patient has a 3rd cranial nerve lesion on the left. This seems to be bothering the patient and causing visual disturbance. MRI of the brain and CT angiogram of the head and neck are unremarkable for cause. Plan: Monitor clinically Family history of brain aneurysm CT angiogram of the head and neck does not identify aneurysm Elevated blood pressure reading Improved today Plan: Close follow up with primary care to monitor blood pressure History of migraine Patient does have a history of migraine type headaches as well. She is and sumatriptan. Pending course we will continue to monitor and suggest potential plan of action related to this. Patient told to present to the emergency department right away with any such signs or symptoms. Patient understands and agrees to comply with the treatment plan. Pt has been fully educated on their diagnosis, treatment options, follow up plan, and return instructions documented in this encounter [facility] 11-18-2023 History of Present illness Narrative Images from the original note were not included. Chief complaint: Visual disturbance Subjective Leesa Shrestha, 47 y.o., female 47 year old female new patient here for evaluation of visual disturbance. She was referred by PCP Dr Gallagher for unresolved blurriness in the left eye x2 weeks. She denies pain or pressure with this. She admits Hx of chronic migraines. She usually wakes with them and they can be severe. Takes Sumatriptan which is usually effective. She uses Maxalt if needed. These have occurred over the last 21 years. Denies ever experiencing visual disturbance with episodes. She was seen by [facility] in [place] recently but did not receive full exam, last known was prior to 2019. BP elevated today. She denies further concern today. Review of Systems Constitutional: Negative for appetite change, fatigue and fever. Eyes: Positive for visual disturbance. Respiratory: Negative for cough, shortness of breath and wheezing. Cardiovascular: Negative for chest pain, palpitations and leg swelling. Gastrointestinal: Negative for abdominal pain, constipation, diarrhea and nausea. Musculoskeletal: Negative for arthralgias, gait problem and myalgias. Neurological: Negative for dizziness, tremors, numbness and headaches. Past Medical History: Diagnosis Date Abdominal pain, generalized Anxiety with flying (CMS/HCC) BMI 23.0-23.9, adult Breast mass 2021 Chronic superficial gastritis without bleeding Dysmenorrhea Encounter for gynecological examination (general) (routine) without abnormal findings Migraine (CMS/HCC) Chronic Seasonal allergic rhinitis due to pollen Past Surgical History: Procedure Laterality Date BUNIONECTOMY HAND SURGERY Family History Problem Relation Name Age of Onset Hypertension Mother Binta Cagle Cancer Mother Binta Cagle Hyperlipidemia Father Gonzalo Cagle Cancer Maternal Grandmother Elian Heart Diabetes Paternal Grandmother Yoselyn Cagle Heart disease Paternal Grandfather Blaine Cagle Social History Tobacco Use Smoking status: Never Smokeless tobacco: Never Substance Use Topics Alcohol use: Not Currently Comment: occasional Allergies: Patient has no known allergies. Vitals: 11/18/23 1318 BP: (!) 148/101 Pulse: 82 Body mass index is 25.58 kg/m . weight: 149 lb Neurologic exam: Mental status: Awake, alert to person, place and time. Recent and remote memory are intact. Language is fluent without aphasia. Attention and concentration are normal. Fund of knowledge is appropriate for level of education. Cranial nerves: CN II: Visual acuity is normal. Visual doe full to confrontation. CN III, IV, : left pupil appears 3 mm and smaller than that of the right. Subtle left eye exotropia.No clear ptosis. No clear fatigability. Extraocular movements are otherwise intact.. CN V: Facial sensation is normal. CN VII: Full and symmetric facial movement. CN VIII: Hearing is normal to finger rub bilaterally: CN IX and X: Palate elevates symmetrically. CN XI: Shoulder shrug is normal bilaterally. CN XII: Tongue is midline without atrophy or fasciculation. Motor: Strength is 5/5 throughout. Bulk is normal. Sensory: Sensation is intact to light touch throughout Four extremities. Reflexes: Deep tendon reflexes are 2+ and symmetric throughout. Coordination: Uwmpsq-az-qdgw testing and rapid alternating movements are normal Gait: Normal Review and summary of old records: Assessment/Plan Diagnoses and all orders for this visit: 3rd cranial nerve palsy, left It is my impression that the patient has a 3rd cranial nerve lesion on the left. This seems to be bothering the patient and causing visual disturbance. Certainly intracranial pathology is considered as a primary cause. This has been going on for approximately 2-3 weeks at this time. The patient woke up with it 1 morning. Of concern is the fact that the patient has a history of intracranial aneurysm rupture in her mother. She also is hypertensive today. Plan: Urgent MRI of the brain with and without contrast to evaluate for potential causes Stat CT angiogram of the head and neck to evaluate for the possibility of intracranial aneurysm Family history of brain aneurysm - stat CT angiogram of the head and neck as above Elevated blood pressure reading Patient did have an elevated blood pressure reading. We did talk to her about the importance of elevated blood pressure and the effect can have on migrainous type pathology. Also, given her family history of aneurysm we talked further about the importance of blood pressure control. Plan: I asked her to contact her primary care provider today and alert them to the elevated blood pressure and work on a plan of action History of migraine Patient does have a history of migraine type headaches as well. She is on venlafaxine and sumatriptan. Pending course we will continue to monitor and suggest potential plan of action related to this. Potential for high-degree morbidity and mortality with high-level medical decision-making a need for stat imaging an extensive discussion on signs and symptoms of stroke. Patient told to present to the emergency department right away with any such signs or symptoms. Patient understands and agrees to comply with the treatment plan. Pt has been fully educated on their diagnosis, treatment options, follow up plan, and return instructions documented in this encounter [facility] 11-17-2023 History of Present illness Narrative General Surgery H&P Leesa Shrestha 1975 Leesa Shrestha is a 47 y.o. female presents with chief complaint of Colonoscopy (Pt presents today for a colonoscopy consult. She denies having a colonoscopy before. She denies abdominal pain, changes in bowel movements, rectal bleeding or any family hx of colon cancer. ) Denies melena or hematochezia. Denies changes in bowel habits. Denies changes in caliber of stools. Denies hx of unplanned weight loss. Denies fevers, chills, or sweats. Denies nausea or vomiting. Last colonoscopy was never SUBJECTIVE: MEDICATIONS: ALLERGIES Current Outpatient Medications Medication Instructions bisacodyl (DULCOLAX) 5 mg, Oral, Once, Do not crush, chew, or split. Take as detailed on clinic hand out for colonoscopy prep montelukast (SINGULAIR) 10 mg, Oral, Nightly Multiple Vitamin (Multi Vitamin) tablet Every 24 hours polyethylene glycol (PEG) 3350 (GLYCOLAX) 238 g, Oral, Once, Take as detailed from clinic hand out for colonoscopy prep rizatriptan LEATHER WHITENER (Maxalt-LEATHER WHITENER) 10 MG disintegrating tablet DISSOLVE 1 TABLET ON THE TONGUE NEEDED AT ONSET OF HEADACHE. MAY REPEAT IN 2 HOURS ONE TIME. SUMAtriptan (IMITREX) 25 mg, Oral, Once as needed, May repeat dose once in 2 hours if no relief. Do not exceed 2 doses in 24 hours. venlafaxine XR (EFFEXOR XR) 37.5 mg, Oral, Daily No Known Allergies PAST MEDICAL HISTORY: SOCIAL HISTORY SURGICAL HISTORY: Past Medical History: Diagnosis Date Abdominal pain, generalized Anxiety with flying (CMS/HCC) BMI 23.0-23.9, adult Breast mass 2021 Chronic superficial gastritis without bleeding Dysmenorrhea Encounter for gynecological examination (general) (routine) without abnormal findings Migraine (CMS/HCC) Chronic Seasonal allergic rhinitis due to pollen Social History Tobacco Use Smoking status: Never Smokeless tobacco: Never Substance Use Topics Alcohol use: Not Currently Comment: occasional Drug use: Never Past Surgical History: Procedure Laterality Date BUNIONECTOMY HAND SURGERY Family History Problem Relation Name Age of Onset Hypertension Mother Binta Cagle Cancer Mother Binta Cagle Hyperlipidemia Father Gonzalo Cagle Cancer Maternal Grandmother Elian Heart Diabetes Paternal Grandmother Yoselyn Cagle Heart disease Paternal Grandfather Blaine Cagle No Known Allergies Past Surgical History: Procedure Laterality Date BUNIONECTOMY HAND SURGERY Tobacco Use: Low Risk (11/17/2023) Patient History Smoking Tobacco Use: Never Smokeless Tobacco Use: Never Passive Exposure: Not on file Alcohol Use: Not At Risk (11/11/2023) AUDIT-C Frequency of Alcohol Consumption: Monthly or less Average Number of Drinks: 1 or 2 Frequency of Binge Drinking: Never Depression: Not on file Physical Activity: Sufficiently Active (11/11/2023) Exercise Vital Sign Days of Exercise per Week: 5 days Minutes of Exercise per Session: 30 min REVIEW OF SYMPTOMS: Review of Systems All other systems reviewed and are negative. 10 systems were reviewed. Positives noted above. Remainder are negative per CMS guidelines. OBJECTIVE: Visit Vitals BP 126/70 Pulse 57 Resp 16 Ht 5' 4 Wt 149 lb SpO2 98% BMI 25.58 kg/m Smoking Status Never BSA 1.75 m Physical Exam Vitals reviewed. General: AAOx3, NAD Head: atraumatic normocephalic Neck: trachea midline. No masses or lymphadenopathy Heart: Regular rate and rhythm Lungs: equal chest rise and fall, non labored breathing Abdomen: soft, nontender, and non distended Ext: motor 5/5 all extremities with no gross deformities Psych: alert and oriented, behavior appropriate ASSESSMENT AND PLAN: Assessment/Plan Diagnoses and all orders for this visit: Screening for malignant neoplasm of colon - bisacodyl (Dulcolax) 5 MG EC tablet; Take 1 tablet (5 mg) by mouth 1 time for 1 dose Do not crush, chew, or split. Take as detailed on clinic hand out for colonoscopy prep - polyethylene glycol, PEG, 3350 (Glycolax) 17 GM/SCOOP powder; Take 238 g by mouth 1 (one) time for 1 dose Take as detailed from clinic hand out for colonoscopy prep Plan: Patient is average risk for colon cancer. Colonoscopy can be scheduled electively. Patient informed of the risks of procedure which include but not limited to bleeding, perforation, and risks of anesthesia. Patient understood risks and signed informed consent for the procedure under monitored anesthesia care. Handout for bowel prep provided in clinic. Patient was informed of the need for a ride home from the hospital and the need for someone to be with them for the following 24 hrs post procedure. Thank you, Ana Long DO documented in this encounter [facility] 11-12-2023 History of Present illness Narrative Associated Problem(s): Annual physical exam Due for labs. Never had colon cancer screening and refer to surgeon. Discussed proper diet and regular aerobic exercise. Need aerobic exercise 5-6 days a week for 30 minutes at a time. Smaller portions and limit total calories. Tetanus every 10 years. Advised not to smoke. Discussed daily Aspirin therapy. Images from the original note were not included. Subjective Patient ID: Leesa Shrestha is a 47 y.o. female who presents for Annual Exam (Vision issues). Presents for annual PE. Patient stable today. Weight up 11 pounds in the past year. Tries to stay active and uses treadmill several times a week. Not watching diet or trying to eat healthy. Not limiting snacking or portions. Not limiting calories. Due for labs. Never had colon cancer screening and willing to have colonoscopy. Mammogram normal in May. Review of Systems Respiratory: Negative for cough, shortness of breath and wheezing. Cardiovascular: Negative for chest pain and palpitations. Gastrointestinal: Negative for abdominal pain, diarrhea, nausea and vomiting. Genitourinary: Negative for dysuria. Objective Physical Exam Constitutional: General: She is not in acute distress. Appearance: Normal appearance. HENT: Head: Normocephalic. Right Ear: Tympanic membrane normal. Left Ear: Tympanic membrane normal. Eyes: Extraocular Movements: Extraocular movements intact. Pupils: Pupils are equal, round, and reactive to light. Cardiovascular: Rate and Rhythm: Normal rate and regular rhythm. Heart sounds: No murmur heard. No friction rub. No gallop. Pulmonary: Effort: Pulmonary effort is normal. Breath sounds: Normal breath sounds. No wheezing, rhonchi or rales. Abdominal: General: Bowel sounds are normal. There is no distension. Palpations: Abdomen is soft. Tenderness: There is no abdominal tenderness. There is no guarding or rebound. Musculoskeletal: General: No swelling or tenderness. Cervical back: Neck supple. Right lower leg: No edema. Left lower leg: No edema. Skin: Findings: No erythema or rash. Neurological: General: No focal deficit present. Mental Status: She is alert and oriented to person, place, and time. Cranial Nerves: No cranial nerve deficit. Motor: No weakness. Gait: Gait normal. Assessment/Plan Problem List Items Addressed This Visit Annual physical exam - Primary Due for labs. Never had colon cancer screening and refer to surgeon. Discussed proper diet and regular aerobic exercise. Need aerobic exercise 5-6 days a week for 30 minutes at a time. Smaller portions and limit total calories. Tetanus every 10 years. Advised not to smoke. Discussed daily Aspirin therapy. Relevant Orders Hemoglobin A1c Basic metabolic panel CBC and differential Hepatic function panel Lipid panel TSH Other Visit Diagnoses Colon cancer screening Relevant Orders Ambulatory referral to General Surgery documented in this encounter [facility] Evaluation note No assessment inform ation available [facility] Work Phone: Evaluation note Diagnosis 3rd cranial nerve palsy, left- Primary Family history of brain aneurysm Family history of other cardiovascular diseases History of migraine [facility] Diagnosis Annual physical exam- Primary Routine general medical examination at a health care facility Colon cancer screening Special screening for malignant neoplasms, colon Acute bronchitis due to other specified organisms- Primary Anxiety with flying (CMS/HCC) documented [facility] Diagnosis Annual physical exam- Primary Routine general medical examination at a health care facility Colon cancer screening Special screening for malignant neoplasms, colon Acute bronchitis due to other specified organisms- Primary Anxiety with flying (CMS/HCC) Migraine without aura and without status migrainosus, not intractable (CMS/HCC) documented [facility] Diagnosis Annual physical exam- Primary Routine general medical examination at a health care facility Colon cancer screening Special screening for malignant neoplasms, colon [facility] Diagnosis Screening for malignant neoplasm of colon- Primary documented in [facility]* Diagnosis 3rd cranial nerve palsy, left- Primary Family history of brain aneurysm Family history of other cardiovascular diseases Elevated blood pressure reading Elevated blood pressure reading without diagnosis of hypertension History of migraine [facility] Consultation (Routine) - Pending Review Specialty Diagnoses / Procedures Referred By Nalini t Referred To Contact General Surgery Diagnoses Colon cancer screening Procedures SC OFFICE/OUTPATIENT NEW HIGH MDM 60 MINUTES Rowdy Gallagher MD [address] [place] [address] Cherrie Long DO [address] [facility] [address] [place] [address] Referral ID Status Reason Start Date Expiration Date Visits Requested Visits Authorized [id number] Pending Review Specialty Services Required 11/12/2023 05/10/2024 1 1 [facility] Healthcare Summary Purpose Family History No Family History Records FoundNo Family History Records FoundNo Family History Records Found Advance Directives Advance Directive Response Recorded Date/ Time Advance Directives No November 18, 2023 8:09pm Advance Directive Response Recorded Date/ Time Advance Directives No November 4:10pm Chief Complaint and Reason for Visit Chief Complaint H49.02 Z82.49 Chief Complaint H49.02 Z82.49 h49.02 z82.49 Reason for Referral Specialty Diagnoses / Procedures Referred By Nalini shepherd Referred To Contact Diagnoses 3rd cranial nerve palsy, left Family history of brain aneurysm Procedures MR brain w and wo contrast routine Sergey Valenzuela DO [address] [place] [address] [facility] Scheduling [address] [place] [address] Referral ID Status Reason Start Date Expiration Date V isits Requested Visits Authorized [id number] Pending Review 11/18/2023 05/16/2024 1 1 Specialty Diagnoses / Procedures Referred By Contac t Referred To Contact Diagnoses 3rd cranial nerve palsy, left Family history of brain aneurysm Procedures CT angiogram head and neck Sergey Valenzuela DO [address] [place] [address] [facility] Scheduling [address] [place] [address] Referral ID Status Reason Start Date Expiration Date V isits Requested Visits Authorized [id number] Pending Review 11/18/2023 05/16/2024 1 1 Additional Source Comments INFORMATION SOURCE (unrecogn ized section and content) DATE CREATED AUTHOR 06/14/2022 [facility] DATE CREATED AUTHOR AUTHOR'S ORGANIZ ATION 12/12/2023 [facility] DATE CREATED AUTHOR AUTHOR'S ORGANIZ ATION 01/08/2024 [facility] EPIC Care Teams (unrecognized sec tion and content) [...] December 10, 2023 End: December 10, 2023 [employer] Relationship Specialty Start Date End Date Rowdy Gallagher MD [address] [place] [phone] PCP - General Family Medicine 11/12/23 [employer] Relationship Specialty Start Date End Date Rowdy Gallagher MD [address] [place] [address] PCP - General Family Medicine 11/12/23 [employer] Relationship Specialty Start Date End Date Rowdy Gallagher MD [address] [place] [phone] PCP - General Family Medicine 11/12/23 [employer] Relationship Specialty Start Date End Date Rowdy Gallagher MD [address] [place] [phone] PCP - General Family Medicine 11/12/23 [employer] Relationship Specialty Start Date End Date Rowdy Gallagher MD [address] [place] [phone] PCP - General Family Medicine 11/12/23 [employer] Relationship Specialty Start Date End Date Rowdy Gallagher MD [address] [place] [phone] PCP - General Family Medicine 11/12/23 [employer] Relationship Specialty Start Date End Date Rowdy Gallagher MD [address] [place] [phone] PCP - General Family Medicine 11/12/23 [employer] Relationship Specialty Start Date End Date Rowdy Gallagher MD [address] [place] [phone] PCP - General Family Medicine 11/12/23 [employer] Relationship Specialty Start Date End Date Rowdy Gallagher MD [address] [place] [phone] PCP - General Family Medicine 11/12/23 [employer] Relationship Specialty Start Date End Date Rowdy Gallagher MD [address] [place] [address] PCP - General Family Medicine 11/12/23 [employer] Relationship Specialty Start Date End Date Rowdy Gallagher MD [address] [place] [phone] PCP - General Family Medicine 11/12/23 Goals (unrecognized section and content) Goals may be documented in a n alternate sectionGoals may be documented in an alternate section Reason for Visit (unrecogniz ed section and content) Reason Comments Sinusitis Cough Reason Comments Med Refill Reason Comments Annual Exam Vision issues Reason Comments Colonoscopy Pt presents today fo r a colonoscopy consult. She denies having a colonoscopy before. She denies abdominal pain, changes in bowel movements, rectal bleeding or any family hx of colon cancer. Reason Comments Visual Field Change FOR RECORDS PERTAINING TO PATIENTS WHO ARE [...] BE BASED ON THE PRIMARY CLINICAL RECORDS. [employer] [facility]. provides no warranty or guarantee of the accuracy or completeness of information in this document.
[2024-05-09 15:09] LABS: Age Gdln ACOG Testing Note (.); HPV Aptima Negative (Negative); IGP, Aptima HPV, rfx 16/18,45 Note (.)
== END 2024-05-04 19:49 | disposition home or self-care (01) ==
LOC: LAB 19:48
PROVIDERS: PCP Family Medicine; Visit Provider Obstetrics & Gynecology
DX: Z01.419 Encounter for gynecological examination (general) (routine) without abnormal findings (principal)
CPT/HCPCS: 87624; 88175

== ENCOUNTER 2024-07-07 10:33 | Outpatient (OUT) | payer OTHER, SELFPAY ==
--- NOTE | 2024-07-07 10:35 | MM_ITS ---
Patient Name: LANETTE SHRESTHA MR#: [id number] : 1975 Exam Date: 07/07/2024 Ordering Doctor: DR Gutierrez Regalado . RADIOLOGY REPORT PROCEDURE: MM TOMOSYNTHESIS SCREENING BI COMPARISON: MM TOMOSYNTHESIS SCREENING BI, 06/11/2023. MG MAMM SCREEN 3D JEWEL CAD, 06/05/2022. MG MAMM DX 3D RT CAD, 12/12/2021. MG MAMM SCREEN 3D JEWEL CAD, 04/29/2021. INDICATIONS: Screening Calculator Name NCI Breast Cancer Risk Assessment Tool 5 Year Breast Cancer Risk 1.60% Lifetime Breast Cancer Risk 13.60% Personal Breast Cancer No Personal Ovarian Cancer No Treatments None Family Cancers Grandmother-maternal with breast cancer at age 65; Mother with ovarian cancer at age 67; Aunt-maternal with lung cancer at age ~60. LOCATION: [facility] BREAST COMPOSITION: The breasts are heterogeneously dense,which may obscure small masses. FINDINGS: DIAGNOSTIC CATEGORY 1--NEGATIVE. RIGHT BREAST: No significant suspicious finding. LEFT BREAST: No significant suspicious finding. RECOMMENDATIONS: ROUTINE MAMMOGRAM AND CLINICAL EVALUATION IN 12 MONTHS. PLEASE NOTE: A NORMAL MAMMOGRAM DOES NOT EXCLUDE THE POSSIBILITY OF BREAST CANCER. A CLINICALLY SUSPICIOUS PALPABLE LUMP SHOULD BE BIOPSIED. Dictated by: Zion Chavira DO on 07/07/2024 at 15:09 Approved by: Zion Chavira DO on 07/07/2024 at 15:11
--- OUTSIDE RECORDS SUMMARY | 2024-07-07 10:37 | XMS_ITS | CCD ---
Author Organization [facility] Care Team Providers Care Research Spec Name Role Phone SABINE ALEX Admitting Unavailable SABINE, ALEX Attending Unavailable DR ROWDY GALLAGHER Primary Care Unavailable SABINE, ALEX Consulting Unavailable KADE, DR RAJESH Shirley Consulting Unavailable SABINE, ALEX Admitting Unavailable SABINE, ALEX Attending Unavailable AILEEN, DR ROWDY Reid Primary Care Unavailable Rey Plata Unavailable SABINE, ALEX Consulting Unavailable SABINE, ALEX Admitting Unavailable SABINE, ALEX Attending Unavailable AILEEN, DR ROWDY Reid Primary Care Unavailable SABINE, ALEX Consulting MD Rowdy Thakur Primary Care Provider [phone] DO Sergey Valenzuela Attending Provider [phone] Sergey Valenzuela Admitting UnavailSergey Small Attending UnavailRowdy Eugene Primary Care Unavailable Sergey Valenzuela Attending Rowdy Min Primary Care Unavailable Sergey Valenzuela Admitting UnavailRowdy Eugene MD Primary Care Provider [phone] ALEX REGALADO Attending Unavailable ALEX REGALADO Attending Unavailable ROWDY GALLAGHER Attending Unavailable CHERRIE LONG Attending Unavailable SERGEY VALENZUELA Attending ROWDY Thakur Referring SERGEY Griffith Attending ROWDY Thakur Attending Unavailable Allergies Allergy Classification Reported Allergen(s) Allergy Type Date of Onset Reaction(s) Facility (1 source) Unable to Assess Drug allergy (disorder) 12-10-2023 [facility] Repository Medications Current Medications Medication Drug Class(es) Dates Sig (Normalized) Sig (Original) ALPRAZolam 0.5 mg oral tablet (6 sources) Benzodiazepine Start: 01-06-2024 End: 01-11-2024 take 1 tablet by mouth three times daily as needed for anxiety ALPRAZolam (Xanax) 0.5 MG tablet Indications: Anxiety with flying (CMS/HCC) Take 1 tablet (0.5 mg) by mouth 3 (three) times a day as needed for anxiety for up to 5 days 15 tablet 01/06/2024 Active bisacodyl 5 mg delayed release oral [...] 7 days 7 tablet 01/06/2024 01/13/2024 Active 24 hr metFORMIN hydrochloride 500 mg extended release oral tablet (4 sources) Biguanide Start: 05-04-2024 End: 06-03-2024 take 1 tablet by mouth every twenty-four hours at mealtime metFORMIN XR (Glucophage-XR) 500 MG 24 hr tablet Indications: Encounter for weight management Take 1 tablet (500 mg) by mouth in the evening. Take with meals Do not crush, chew, or split. 30 tablet 11 05/04/2024 Active metroNIDAZOLE 500 mg oral tablet (3 sources) Nitroimidazole Antimicrobial Start: 05-04-2024 End: 05-11-2024 take 1 tablet by mouth in the morning metroNIDAZOLE (Flagyl) 500 MG tablet Indications: Vaginal discharge Take 1 tablet (500 mg) by mouth in the morning and 1 tablet (500 mg) before bedtime. Do all this for 7 days. Do not drink alcohol while taking this medication. 14 tablet 05/04/2024 05/11/2024 Active montelukast 10 mg oral tablet (20 sources) Leukotriene Receptor Antagonist Start: 01-12-2024 End: 05-08-2024 take 1 tablet by mouth once daily at bedtime montelukast (Singulair) 10 MG tablet Indications: Seasonal allergic rhinitis due to pollen TAKE 1 TABLET BY MOUTH EVERYDAY AT BEDTIME 21 tablet 4 05/08/2024 Active Start: 10-04-2023 take 1 tablet by dennis th once daily at bedtime montelukast (Singulair) 10 MG tablet Indications: Seasonal allergic rhinitis due to pollen TAKE 1 TABLET BY MOUTH EVERYDAY AT BEDTIME 21 tablet 4 10/04/2023 Active Multiple Vitamin (Multi Vitamin) tablet (20 sources) Multiple Vitamin (Multi Vitamin) tablet 1 (one) time each day at the same time Active polyethylene glycol 3350 95187 mg powder for oral solution (2 sources) Osmotic Laxative Start: End: 4 take 17 g by mouth once polyethylene glycol, PEG, 3350 (Glycolax) 17 GM/SCOOP powder Indications: Colonoscopy Take 238 g by mouth 1 (one) time for 1 dose Take as detailed from clinic hand out for colonoscopy prep 238 g 11/17/2023 11/17/2023 Active predniSONE 50 mg oral tablet (2 sources) Start: End: 4 take 1 tablet by mouth once daily predniSONE (Deltasone) 50 MG tablet Indications: Acute bronchitis due to other specified organisms Take 1 tablet (50 mg) by mouth Daily for 6 days 6 tablet 01/06/2024 01/12/2024 Active rizatriptan 10 mg disintegrating oral tablet (20 sources) Serotonin-1b and Serotonin-1d Receptor Agonist Start: End: 4 rizatriptan ACCOUNTS ADJUSTABLE CLERK (Maxalt-ACCOUNTS ADJUSTABLE CLERK) 10 MG disintegrating tablet Indications: Migraine without aura and without status migrainosus, not intractable (CMS/HCC) DISSOLVE 1 TABLET ON THE TONGUE NEEDED AT ONSET OF HEADACHE. MAY REPEAT IN 2 HOURS ONE TIME. 12 tablet 3 01/24/2024 Active SUMAtriptan 100 mg oral tablet (20 sources) Serotonin-1b and Serotonin-1d Receptor Agonist Start: 5 take 1 tablet by mouth once SUMAtriptan (Imitrex) 100 MG tablet Indications: Migraine without aura and without status migrainosus, not intractable (CMS/HCC) Take 1 tablet (100 mg) by mouth 1 (one) time if needed for migraine 9 tablet 3 05/10/2024 Active Start: 12-27-2023 End: 01-24-2024 take 1 tablet [...] venlafaxine 37.5 mg extended release oral capsule (20 sources) Serotonin and Norepinephrine Reuptake Inhibitor Start: 11-15-2023 take 1 capsule by mouth once daily venlafaxine XR (Effexor XR) 37.5 MG 24 hr capsule Indications: Menopausal and female climacteric states , Symptomatic menopausal or female climacteric states TAKE 1 CAPSULE BY MOUTH EVERY DAY 90 capsule 3 11/15/2023 Active Start: 10-22-2023 take 1 capsule by mo uth once daily venlafaxine XR (Effexor XR) 37.5 MG 24 hr capsule Take 37.5 mg by mouth Daily 10/22/2023 Active Problems Active Problems Problem Classification Problem Date Documented Date Episodic/Chronic Administrative/social admission (2 sources) Patient encounter status; Translations: [Persons encountering health services in other specified circumstances] 05-04-2024 Episodic Anxiety disorders (10 sources) Anxiety; 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] Onset: 01-06-2024 01-06-2024 Chronic Gastritis and duodenitis (20 sources) Chronic superficial gastritis; Translations: [Chronic superficial gastritis without bleeding] Onset: 11-12-2023 11-12-2023 Chronic Headache; including migraine (20 sources) Migraine without aura, not refractory ; Translations: [Migraine without aura, not intractable, without status migrainosus] Onset: 02-26-2023 02-26-2023 Chronic Mood disorders (2 sources) Disturbance in mood; Translations: [Emotional lability] 05-04-2024 Episodic Other eye disorders (1 source) Third [oculomotor] nerve palsy, left eye; Translations: [Third [oculomotor] nerve palsy, left eye] Onset: 11-18-2023 Episodic Other eye disorders (4 sources) Third cranial nerve weakness; Translations: [Third [oculomotor] nerve palsy, left eye] 12-30-2023 Episodic Other female genital disorders (2 sources) Vaginal discharge; Translations: [Other specified noninflammatory disorders of vagina] 05-04-2024 Episodic Other nervous system disorders (4 sources) H/O: migraine; Translations: [Personal history of other diseases of the nervous system and sense organs] 12-30-2023 Episodic Other screening for suspected conditions (not mental disorders or infectious disease) (18 sources) Encounter for screening mammogram for malignant neoplasm of breast; Translations: [Encounter for screening for malignant neoplasm of cervix] Onset: 12-12-2021 Episodic Other skin disorders (2 sources) Night sweats; Translations: [Generalized hyperhidrosis] 05-04-2024 Episodic Other upper respiratory disease (20 sources) Allergic rhinitis due to pollen; Translations: [...] diseases of the circulatory system] 12-30-2023 Episodic Residual codes; unclassified (2 sources) Flushing; Translations: [Flushing] 05-04-2024 Episodic Past or Other Problems Problem Classification Problem Date Documented Da te Episodic/Chronic Acute bronchitis (10 sources) Acute infective bronchitis; Translations: [Acute bronchitis due to other specified organisms] Onset: 01-06-2024 01-06-2024 Episodic Blindness and vision defects (18 sources) Visual disturbance; Translations: [Unspecified visual disturbance] Onset: 11-16-2023 11-16-2023 Episodic Diabetes mellitus without complication (20 sources) Hyperglycemia; Translations: [Hyperglycemia, unspecified] Onset: 11-12-2023 11-12-2023 Episodic Other circulatory disease (2 sources) Elevated blood pressure; Translations: [Elevated blood-pressure reading, without diagnosis of hypertension] 11-18-2023 Episodic Results Test Name Value Interpretation Reference Range Facility IGP,APTIMA HPV,AGE GDLNon AGE GDLN ACOG TESTING Note . [facility] Comment on above: TESTS RESULT FLAG U NITS REF RANGE LAB Clinician Provided Cytology Information Source.............Cervix;Endocervix No. of containers..01 ThinPrep Vial Age Algo ACOG Shana... 30-65 01 FLAG LEGEND: L-Low Normal,H-High Normal,LL-Alert Low,HH-Alert High <-Panic Low,>-Panic High,A-Abnormal,AA-Critical Abnormal Performed at: 01 =G [facility] [id number] Ruth Maradiaga MD, HPV APTIMA Negative Negative [facility]car e Comment on above: This nucleic acid am plification test detects fourteen high- risk HPV types (16,18,31,33,35,39,45,51,52,56,58,59,66,68) without differentiation. Performed at: = - [address] [id number] Terminal Worker: Ruth Maradiaga MD, Phone: [phone] Performed at: [address] [id number] Terminal Worker: Ruth Maradiaga MD, Phone: [phone] IGP, APTIMA HPV, RFX 16/18,45 Note . [facility] Comment on above: TESTS RESULT FLAG UN ITS REF RANGE LAB DIAGNOSIS: 02 NEGATIVE FOR INTRAEPITHELIAL LESION OR MALIGNANCY. Specimen adequacy: 02 Satisfactory for evaluation. Endocervical and/or squamous metaplastic cells (endocervical component) are present. Performed by: 02 Shana Gurrola, Cook Starch (ASCP) . 02 Note: Note 02 The Pap smear is a screening test designed to aid in the detection of premalignant and malignant conditions of the uterine cervix. It is not a diagnostic procedure and should not be used as the sole means of detecting cervical cancer. Both false-positive and false-negative reports do occur. Test Methodology: Note 02 This liquid based ThinPrep(R) pap test was screened with the use of an image guided system. HPV Genotype Reflex Note 02 Criteria not met, HPV Genotype not performed. FLAG LEGEND: L-Low Normal,H-High Normal,LL-Alert Low,HH-Alert High <-Panic Low,>-Panic High,A-Abnormal,AA-Critical Abnormal Performed at: 02 [facility] [address] [place] [address] Ruth Maradiaga MD, BRUSH-SPATULA CERVIX ENDOCERVIX [facility] MR head/brain wo/w conon MR head/brain wo/w con [facility] [place] [address] MRI Report Signed Patient: Leesa Shrestha MR#: [id number] 0 : 1975 Acct:[id number] Age/Sex: 48 / F ADM Date: 12/10/23 Loc: MR Room: Type: [facility] Attending Dr: Sergey Valenzuela DO Copies to: [...] Rica Caldera M.D.12/10/2023 8:14 AM Dictation Location: [place] [address] Transcribed By: [facility] 12/10/23813 Dictated By: Rica Caldera MD 12/10/23801 Signed By: 12/10/23813 Normal [facility] CT angio neckon 11-18-2023 CT angio neck [facility] [place] [address] CT Scan Report Signed Patient: Leesa Shrestha MR#: [id number] 0 : 1975 Acct:[id number] Age/Sex: 47 / F ADM Date: 11/18/23 Loc: CT Room: Type: [facility] Attending Dr: Sergey Valenzuela DO Copies to: Sergey Valenzuela DO Ordering Provider: Sergey Valenzuela DO Date of Service: 11/18/23 CT/CT angio neck: OCULARMOTOR ([id number]) CT/CT angio head: OCULARMOTOR CT angio head, [...] Doc Gallardo M.D.11/18/2023 5:47 PM Dictation Location: [place] [address] Transcribed By: SIOMARA 11/18/231746 Dictated By: Doc Gallardo II, MD 11/18/231739 Signed By: 11/18/231746 Normal [facility] ALL CBC WITH AUTO DIFFon BASOPHILS ABSOLUTE AUTO 0.0 [facility] Basophils/100 WBC (Bld) 0.8 % 0.2 - 2.0 % [facility] Eosinophils/100 WBC (Bld) 2.1 % 0.9 - 7.0 % [facility] Erythrocyte distribution width (RBC) [Ratio] 11.6 % 11.0 - 15.0 % [facility] Hematocrit (Bld) [Volume fraction] 40.5 % 36.0 - 48.0 % [facility] Hem[facility] (Bld) [Mass/Vol] 13.6 g/dL 12.0 - 16.0 g/dL [facility] IMMATURE GRANULOCYTES ABS AUTO 0.00 [facility] Immature granulocytes/100 WBC (Bld) 0.0 % 0.0 - 0.5 % [facility] Interpretation and review of laboratory results Abnormal [facility] LYMPHOCYTES ABSOLUTE AUTO 1.3 [facility] Lymphocytes/100 WBC (Bld) 34.4 % 20.5 - 60.0 % [facility] MCH (RBC) [Entitic mass] 32.2 pg 26.7 - 34.0 pg [facility] MCHC (RBC) [Mass/Vol] 33.6 g/dL 29.9 - 35.2 g/dL [facility] MCV (RBC) [Entitic vol] 96.0 fL 81.0 - 99.0 fL [facility] MONOCYTES ABSOLUTE AUTO 0.3 [facility] Monocytes/100 WBC (Bld) 7.9 % 1.7 - 12.0 % [facility] NEUTROPHILS ABSOLUTE AUTO 2.1 [facility] Neutrophils/100 WBC (Bld) 54.8 % 43.0 - 75.0 % [facility] Platelet mean volume (Bld) [Entitic vol] 9.9 fL 9.5 - 13.5 fL [facility] EO # 0.1 [facility] PLT 208 [facility] RBC 4.22 [facility] WBC 3.9 Low [facility] MG MAMM SCREEN 3D JEWEL CADon 06-05-2022 MG MAMM SCREEN 3D JEWEL CAD Patient: LEESA SHRESTHA Exam Date: 06/05/2022 : 1975 Gender:F Ordering : DR ALEX REGALADO . Admission #: [id number] Family : Order #: [id number] CLICK HERE TO VIEW EXAM RADIOLOGY REPORT [...] LOCATION: [facility] BREAST COMPOSITION: Heterogeneously dense,which may obscure small [...] Olvera M.D. on 06/05/2022 at 14:03 Normal [facility] PAP ACOG PANEL 2: 30 to 65on 05-06-2022 . . Normal [facility] Comment on above: Result Comment: Perf ormed at: WB Performed By: #### [id number] #### [facility] [address] [place] [address] Dr. Maxi Franco Age Gdln ACOG Testing 30-65 Normal [facility] Comment on above: Performed By: #### [id number] #### [facility] [address] [place] [address] [address] Maxi Franco DIAGNOSIS: Comment Normal [facility] Comment on above: Result Comment: NEGA TIVE FOR INTRAEPITHELIAL LESION OR MALIGNANCY. Performed at: WB Performed By: #### [id number] #### [facility] [address] [place] [address] Dr. Maxi Franco HPV Aptima Negative Normal Negative [facility] Comment on above: Result Comment: This nucleic acid amplification test detects fourteen high-risk HPV types (16,18,31,33,35,39,45,51,52,56,58,59,66,68) without differentiation. Performed at: =G Performed By: #### [id number] #### [facility] [address] [place] [address] [address] Maxi Franco HPV Genotype Reflex Comment Normal [facility] Comment on above: Result Comment: Crit eria not met, HPV Genotype not performed. Performed at: WB Performed By: #### [id number] #### [facility] [address] [place] [address] [address] Maxi Franco Methodology: Comment Normal [facility] Comment on above: Result Comment: This liquid based ThinPrep(R) pap test was screened with the use of an image guided system. Performed at: WB Performed By: #### [id number] #### [facility] [address] [place] [address] Dr. Maxi Franco Note: Comment Normal [facility] Comment on above: Result Comment: The Pap smear is a screening test designed to aid in the detection of premalignant and malignant conditions of the uterine cervix. It is not a diagnostic procedure and should not be used as the sole means of detecting cervical cancer. Both false-positive and false-negative reports do occur. . Performed at: WB Performed By: #### [id number] #### [facility] [address] [place], [place] [address] Dr. Maxi Franco Performed by: Comment Normal [facility] Comment on above: Result Comment: Carolina Mitchell, Cook Starch (ASCP) Performed at: WB Performed By: #### [id number] #### [facility] [address] [place], [place] [address] Dr. Maxi Franco Specimen adequacy: Comment Normal [facility] Comment on above: Result Comment: Sati sfactory for evaluation. Endocervical and/or squamous metaplastic cells (endocervical component) are present. Performed at: WB Performed By: #### [id number] #### [facility] [address] [place], [place] [address] Dr. Maxi Franco MG MAMM DX 3D RT CADon 12-12 MG MAMM DX 3D RT CAD Patient: KEVIN SHRESTHA Exam Date: 12/12/2021 : 1975 Gender:F Ordering : DR ALEX REGALADO . Admission #: [id number] Family : Order #: [id number] CLICK HERE TO VIEW EXAM RADIOLOGY REPORT [...] LOCATION: [facility] BREAST COMPOSITION: Heterogeneously dense,which may obscure small [...] Plata MD on 12/12/2021 at 09:47 Normal [facility] Vital Signs Date Time Vital Sign Value Performing Clinician Faci lity 05-04-2024 15:45-0500 Body mass index (BMI) [Ratio] 27.09 kg/m2 Alex Sabine DO Work Phone: [facility] 05-04-2024 15:45-0500 Body weight 71.58 kg Alex Sabine DO Work Phone: [facility] 05-04-2024 15:45-0500 Diastolic blood pressure 86 mm[Hg] Alex Sabine DO Work Phone: [facility] 05-04-2024 15:45-0500 Systolic blood pressure 140 mm[Hg] Alex Sabine DO Work Phone: [facility] 01-06-2024 11:03-0400 Body height 162.6 cm Rowdy Gallagher MD Work Phone: [facility] 01-06-2024 11:03-0400 Body mass index (BMI) [Ratio] 26.43 kg/m2 Rowdy Gallagher MD Work Phone: [facility] 01-06-2024 11:03-0400 Body temperature 97.5 [degF] Rowdy Gallagher MD Work Phone: [facility] 01-06-2024 11:03-0400 Body weight 69.85 kg Rowdy Gallagher MD Work Phone: [facility] 01-06-2024 11:03-0400 Diastolic blood pressure 78 mm[Hg] Rowdy Gallagher MD Work Phone: [facility] 01-06-2024 11:03-0400 Heart rate 94 /min Rowdy Gallagher MD Work Phone: [facility] 01-06-2024 11:03-0400 Respiratory rate 22 /min Rowdy Gallagher MD Work Phone: [facility] 01-06-2024 11:03-0400 SaO2% (BldA) [Mass fraction] 98 % Rowdy Gallagher MD Work Phone: [facility] 01-06-2024 11:03-0400 Systolic blood pressure 128 mm[Hg] Rowdy Gallagher MD Work Phone: [facility] 12-30-2023 09:33-0400 Body mass index (BMI) [Ratio] 26.33 kg/m2 Christopher Bianca DO Work Phone: [facility] 12-30-2023 09:33-0400 Body weight 69.58 kg Christopher Bianca DO Work Phone: [facility] 12-30-2023 09:33-0400 Diastolic blood pressure 81 mm[Hg] Christopher Bianca DO Work Phone: [facility] 12-30-2023 09:33-0400 Heart rate 81 /min Christopher Bianca DO Work Phone: [facility] 12-30-2023 09:33-0400 SaO2% (BldA) [Mass fraction] 98 % Christopher Bianca DO Work Phone: [facility] 12-30-2023 09:33-0400 Systolic blood pressure 123 mm[Hg] Christopher Bianca DO Work Phone: [facility] 12-10-2023 07:28-0400 Body height 162.56 cm MD Rowdy Gallagher Work Phone: [facility] 12-10-2023 07:28-0400 Body weight 72.12 kg MD Rowdy Gallagher Work Phone: [facility] 11-18-2023 13:18-0400 Body height 162.6 cm Christopher Bianca DO Work Phone: [facility] 11-18-2023 13:18-0400 Body mass index (BMI) [Ratio] 25.58 kg/m2 Christopher Bianca DO Work Phone: [facility] 11-18-2023 13:18-0400 Body weight 67.59 kg Christjohnathon Valenzuela DO Work Phone: [facility] 11-18-2023 13:18-0400 Diastolic blood pressure 101 mm[Hg] Sergey Valenzuela DO Work Phone: [facility] 11-18-2023 13:18-0400 Heart rate 82 /min Sergey Valenzuela DO Work Phone: [facility] 11-18-2023 13:18-0400 Systolic blood pressure 148 mm[Hg] Sergey Valenzuela DO Work Phone: [facility] 11-17-2023 09:21-0400 Body height 162.6 cm Cherrie iCabbi Work Phone: [facility] 11-17-2023 09:21-0400 Body mass index (BMI) [Ratio] 25.58 kg/m2 Cherrie Fishett DO Work Phone: [facility] 11-17-2023 09:21-0400 Body weight 67.59 kg Cherrie Long DO Work Phone: [facility] 11-17-2023 09:21-0400 Diastolic blood pressure 70 mm[Hg] Cherrie Fishett DO Work Phone: [facility] 11-17-2023 09:21-0400 Heart rate 57 /min Cherrie Mercedes DO Work Phone: [facility] 11-17-2023 09:21-0400 Respiratory rate 16 /min Cherrie Mercedes DO Work Phone: [facility] 11-17-2023 09:21-0400 SaO2% (BldA) [Mass fraction] 98 % Cherrie Mercedes DO Work Phone: [facility] 11-17-2023 09:21-0400 Systolic blood pressure 126 mm[Hg] Cherriesevero Fishett DO Work Phone: [facility] 11-12-2023 10:33-0400 Body height 162.6 cm Rowdy Gallagher MD Work Phone: [facility] 11-12-2023 10:33-0400 Body mass index (BMI) [Ratio] 25.23 kg/m2 Rowdy Gallagher MD Work Phone: [facility] 11-12-2023 10:33-0400 Body temperature 97.3 [degF] Rowdy Gallagher MD Work Phone: [facility] 11-12-2023 10:33-0400 Body weight 66.68 kg Rowdy Gallagher MD Work Phone: [facility] 11-12-2023 10:33-0400 Diastolic blood pressure 80 mm[Hg] Rowdy Gallagher MD Work Phone: [facility] 11-12-2023 10:33-0400 Heart rate 87 /min Rowdy Gallagher MD Work Phone: [facility] 11-12-2023 10:33-0400 Respiratory rate 20 /min Rowyd Gallagher MD Work Phone: [facility] 11-12-2023 10:33-0400 SaO2% (BldA) [Mass fraction] 99 % Rowdy Gallagher MD Work Phone: [facility] 11-12-2023 10:33-0400 Systolic blood pressure 130 mm[Hg] Rowdy Gallagher MD Work Phone: [facility] Healthcare Encounters Encounter Date Encounter Type Care Provider Facility Start: 06-12-2024 End: 06-12-2024 ambulatory ALEX SABINE Not Available Start: 06-12-2024 End: 06-12-2024 Bamboo flowsheet Alex Sabine DO Work Phone: [facility] Start: 06-12-2024 End: 06-12-2024 Bamboo flowsheet Alex Sabine DO Work Phone: [facility] Start: 05-04-2024 End: 05-04-2024 Patient encounter procedure Alex Sabine DO Work Phone: [facility] Healthcare Start: 05-04-2024 End: 05-04-2024 Periodic preventive med est patient 40-64yrs Alex Angeloo DO Work Phone: [facility] Comment on above: Well woman exam with routine gynecological exam; Encounter for screening mammogram for malignant neoplasm of breast; Vaginal discharge; Encounter for weight management; Night sweats; Hot flashes; Mood changes Start: 05-04-2024 End: 05-04-2024 ambulatory ALEX ANGELOO Not Available Start: 05-04-2024 End: 05-04-2024 Bamboo flowsheet Alex Angeloo DO Work Phone: [facility] Start: 05-04-2024 End: 05-09-2024 Bamboo flowsheet Alex Angeloo DO Work Phone: [facility] Start: 05-04-2024 End: 05-09-2024 [facility] Result Encounter Generic External Data Provider [facility] External Department Unsolicited Start: 01-21-2024 End: 01-24-2024 Refill Rowdy Gallagher MD Work Phone: [facility] Comment on above: Migraine without [...] specified organisms (Primary Dx); Anxiety with flying (CMS/HCC) Start: 01-06-2024 End: 01-06-2024 ambulatory ROWDY GALLAGHER Not Available Start: 12-30-2023 End: 12-30-2023 Bamboo flowsheet Christopher Bianca DO Work Phone: [facility] Start: 12-30-2023 End: 12-30-2023 Bamboo flowsheet Christopher Bianca DO Work Phone: [facility] Start: 12-30-2023 End: 12-30-2023 Office outpatient visit 25 minutes Christopher [facility] Comment on above: 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, left (Primary Dx); Family history of brain aneurysm; History of migraine Start: 12-30-2023 End: 12-30-2023 ambulatory SERGEY VALENZUELA Not Available Start: 12-10-2023 End: 12-10-2023 Patient encounter procedure MD Rowdy Gallagher Work Phone: [facility] [place] Work Phone: Start: 12-10-2023 End: 12-10-2023 ambulatory MD Rowdy Gallagher Work Phone: [facility] Work Phone: Start: 11-18-2023 End: 11-18-2023 Patient encounter procedure MD Rowdy Gallagher Work Phone: [facility]-CT Scan [facility] [place] Work Phone: Start: 11-18-2023 End: 11-18-2023 ambulatory MD Rowdy Gallagher Work Phone: [facility] Work Phone: Start: 11-18-2023 End: 11-18-2023 Bamboo flowsheet Christopher Bianca DO Work Phone: [facility] Start: 11-18-2023 End: 11-18-2023 Bamboo flowsheet Christopher Bianca DO Work Phone: [facility] Start: 11-18-2023 End: 11-18-2023 Office outpatient new 60 minutes Christopher Bianca DO Work Phone: [facility] Comment on above: 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, left (Primary Dx); Family history of brain aneurysm; Elevated blood pressure reading; History of migraine Start: 11-18-2023 End: 11-18-2023 ambulatory SERGEY VALENZUELA Not Available Start: 11-17-2023 End: 11-17-2023 Bamboo flowsheet Cherrie Long DO Work Phone: [facility] Start: 11-17-2023 End: 11-17-2023 Bamboo flowsheet Cherrie Long DO Work Phone: [facility] Start: 11-17-2023 End: 11-17-2023 Patient encounter procedure Cherrie Long DO Work Phone: [facility] Comment on above: Screening for malign ant neoplasm of colon (Primary Dx) Start: 11-17-2023 End: 11-17-2023 ambulatory CHERRIE LONG Not Available Start: 11-12-2023 End: 11-12-2023 Bamboo [...] 11-12-2023 ambulatory ROWDY GALLAGHER Not Available Start: 06-05-2022 End: 06-06-2022 ambulatory ALEX SABINE Facility:[facility] Start: 04-29-2022 End: 04-29-2022 ambulatory ALEX SABINE Facility:[facility] Start: 12-12-2021 End: 12-13-2021 ambulatory ALEX SABINE Facility: Procedures Date Procedure Procedure Detail Performing Clinician Start: 05-04-2024 IGP,APTIMA HPV,AGE GDLN Alex Kwonzio DO Work Phone: Start: 05-04-2024 Microscopic observat ion [Identifier] in Cervix by Cyto stain Alex Angeloo DO Work Phone: Start: 12-10-2023 MRI of head MD Rowdy dykes Work Phone: Start: 11-18-2023 CT angiography of head MD Rowdy Gallagher Work Phone: Start: 11-18-2023 CT angiography of ne ck vessels MD Rowdy Gallagher Work Phone: Start: 11-12-2023 ALL CBC WITH AUTO DIFF Rowdy Gallagher MD Work Phone: Start: 06-11-2023 Mammography Rowdy tavarez MD Work Phone: Plan of Treatment Date Care Activity Detail Author Start: 05-04-2029 Screening for malign ant neoplasm of cervix [facility] Start: 05-08-2025 End: 05-08-2025 Patient encounter procedure 05/08/2025 8:30 AM EST Office Visit [facility] [address] [place] [address] Alex Regalado, DO [address] [place], [place] [id number] [facility] Start: 06-12-2024 End: 06-12-2024 Patient encounter procedure 06/12/2024 3:50 PM EDT Office Visit [facility] [address] [place] [address] Alex Regalado, DO [address] [place] [address] Arrived [facility] Comment on above: Arrived Start: 06-10-2024 Screening for malign ant neoplasm of breast Mammogram [facility] Start: 06-06-2024 End: 06-06-2024 Patient encounter procedure 06/06/2024 2:20 PM EDT Office Visit [facility] [address] [facility] [place] [phone] Alex Regalado, DO [address] [place] [address] [facility] Start: 05-04-2024 End: 05-04-2024 Patient encounter procedure 05/04/2024 3:15 PM EST Office Visit [facility] [place] [phone] Alex Regalado, DO [address] [facility] [address] [place] [address] Arrived [facility] Comment on above: Arrived Start: 05-04-2024 End: 07-02-2025 MG Breast - bilateral Screening Bilateral screening mammogram Imaging Routine Encounter for screening mammogram for malignant neoplasm of breast Expected: 05/04/2024 (Approximate), Expires: 07/02/2025 [facility] Work Phone: Comment on above: Expected: 05/04/2024 (Approximate), Expires: 07/02/2025 Start: 05-04-2024 End: 05-04-2024 Patient encounter procedure 05/04/2024 8:30 AM EST Office Visit [facility] [address] [facility] [place] [phone] Alex Regalado, DO [address] [place] [address] [facility] Start: 04-27-2024 End: 04-27-2024 Patient encounter procedure 04/27/2024 8:40 AM EST Office Visit [facility] [place] [facility] [address] [place] [address] Lakeshia Moise NP [address] [place], [place] [phone] [facility] Start: 01-06-2024 End: 01-06-2024 Patient encounter procedure 01/06/2024 11:00 AM EDT Office Visit [facility] [address] [place] [phone] Rowdy Gallagher MD [address] [place] [phone] Arrived [facility] Comment on above: Arrived Start: 12-30-2023 End: 12-30-2023 Patient encounter procedure 12/30/2023 9:30 AM EDT Office Visit [facility] [address] [place] [address] Sergey Valenzuela DO [address] [place], [place] [phone] [facility] Comment on above: Arrived Start: 12-06-2023 End: 12-06-2023 Patient encounter procedure 12/06/2023 10:30 AM EDT Office Visit [facility] [address] [place] [address] Sergey Valenzuela DO [address] [place] [address] [facility] Start: 11-21-2023 Influenza vaccination Influenza Vacc ine (#1) [facility] Start: 11-18-2023 End: 11-17-2024 CTA Head vessels and Neck vessels WO and W contrast IV CT angiogram head and neck Imaging 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, left Family history of brain aneurysm Expected: 11/18/2023, Expires: 11/17/2024 [facility] Work Phone: Comment on above: Expected: 11/18/2023 , Expires: 11/17/2024 Start: 11-18-2023 End: 11-17-2024 MR Brain WO and W contrast IV MR brain w and wo contrast routine Imaging High Priority 3rd cranial nerve palsy, left Family history of brain aneurysm Expected: 11/18/2023, Expires: 11/17/2024 [facility] Comment on above: Expected: 11/18/2023 , Expires: 11/17/2024 Start: 11-18-2023 End: 11-18-2023 Patient encounter procedure 11/18/2023 1:30 PM EDT Office Visit [facility] [address] [place] [phone] Sergey Valenzuela DO [address] [place] [address] Arrived [facility] Comment on above: Arrived Start: 11-17-2023 End: 11-17-2023 Patient encounter procedure 11/17/2023 9:15 AM EDT Office Visit [facility] [address] [place] [address] Cherrie Long DO [address] [place] [address] Arrived [facility] Comment on above: Arrived Start: 11-12-2023 End: 11-11-2024 Basic metabolic 1998 panel - Serum or Plasma Basic metabolic panel Lab Routine Annual physical exam Expected: 11/12/2023 (Approximate), Expires: 11/11/2024 [facility] Comment on above: Expected: 11/12/2023 (Approximate), Expires: 11/11/2024 Start: 11-12-2023 End: 11-11-2024 CBC W Auto Differential panel - Blood CBC and differential Lab Routine Annual physical exam Expected: 11/12/2023 (Approximate), Expires: 11/11/2024 [facility] Comment on above: Expected: 11/12/2023 (Approximate), Expires: 11/11/2024 Start: 11-12-2023 End: 11-11-2024 Hemoglobin A1c/Hemoglobin.total in Blood Hemoglobin A1c Lab Routine Annual physical exam Expected: 11/12/2023 (Approximate), Expires: 11/11/2024 [facility] Work Phone: Comment on above: Expected: 11/12/2023 (Approximate), Expires: 11/11/2024 Start: 11-12-2023 End: 11-11-2024 Hepatic function 2000 panel - Serum or Plasma Hepatic function panel Lab Routine Annual physical exam Expected: 11/12/2023 (Approximate), Expires: 11/11/2024 [facility] Comment on above: Expected: 11/12/2023 (Approximate), Expires: 11/11/2024 Start: 11-12-2023 End: 11-11-2024 Lipid 1996 panel - Serum or Plasma Lipid panel Lab Routine Annual physical exam Expected: 11/12/2023 (Approximate), Expires: 11/11/2024 [facility] Comment on above: Expected: 11/12/2023 (Approximate), Expires: 11/11/2024 Start: 11-12-2023 End: 11-11-2024 Thyrotropin [Units/volume] in Serum or Plasma TSH Lab Routine Annual physical exam Expected: 11/12/2023 (Approximate), Expires: 11/11/2024 [facility] Comment on above: Expected: 11/12/2023 (Approximate), Expires: 11/11/2024 Start: 11-12-2023 End: 11-12-2023 Patient encounter procedure 11/12/2023 10:15 AM EDT Office Visit [facility] [address] [place] [address] Rowdy Gallagher MD [address] [place] [phone] Arrived [facility] Comment on above: Arrived Start: 2004 Screening for malign ant neoplasm of cervix [facility] Start: 12-06-1995 Screening for malign ant neoplasm of cervix Pap Smear [facility] Start: 1974 Screening for malign ant neoplasm of colon [facility] THIN PREP TIS PAP AN D HR HPV DNA THIN PREP TIS PAP AND HR HPV DNA Pathology and Cytology Routine Well woman exam with routine gynecological exam Ordered: 05/04/2024 [facility] Comment on above: Ordered: 05/04/2024 Immunizations Immunization Date Immunization Notes Care Provider Cher fontanez 12-29-2022 influenza virus vacc ine, unspecified formulation Rowdy Gallagher MD Work Phone: [facility] Payers Date Payer Category Payer Self-pay 2017 [employer] O (unspecified) [id number] 1974 Unknown [id number] 1974 Unknown [id number] [id number] 1974 Unknown [id number] [id number] 1974 Unknown [id number] [id number] 1974 Unknown [id number] [id number] 1974 Unknown [id number] [id number] 1974 Unknown [id number] [id number] 1974 Unknown [id number] [id number] 1974 Unknown [id number] [id number] 1974 Unknown [id number] [id number] 1959 Private Health Insurance [id number] Unknown MMO [id number] Unknown [place] BC/BS [id number] Unknown [id number] [id number] Unknown [id number] [id number] Social History Date Type Detail Facility Tobacco smoking stat us COIS Unknown if ever smoked [facility] Work Phone: Start: 1975 Sex Assigned At Female [facility] Start: 04-08-2023 Tobacco smoking status NHIS Never smoked tobacco [facility] Start: 04-08-2023 Tobacco use and exposure Smokeless tobacco non-user [facility] Start: 11-18-2023 End: 01-06-2024 Alcoholic beverage intake Ex-drinker (finding) [facility] Start: 11-11-2023 End: 01-06-2024 History of Social function [facility] Start: 11-11-2023 End: 01-06-2024 B1300 Health Literacy [facility] How often do you nee d to have someone help you when you read instructions, pamphlets, or other written material from your doctor or pharmacy [SILS] Never [facility] Do you belong to any clubs or organizations such as scientologist groups, unions, fraternal or athletic groups, or [...] [facility] Start: 04-08-2023 Alcohol Comment occasional [facility] Start: 1975 Sex assigned at Not on file [facility] Start: 04-08-2023 End: 11-12-2023 Alcoholic beverage intake Current drinker of alcohol (finding) [facility] Clinical Notes 11-12-2023 to 05-04-2024 Tameka Claros LPN - 05/04/2024 3:15 PM Berry Gallagher MD - 01/06/2024 11:22 AM Brody Gallagher MD - 01/06/2024 11:00 AM ANNIE JAY - 01/06/2024 11:00 AM EDT Note Date & Type Note Facility 05-04-2024 History of Present illness Narrative Reason for Appointment: Patient ID: Leesa Shrestha is a 48 y.o. female who presents for Well Women Visit Patient presents today for Annual Exam. MEDICATIONS Current Outpatient Medications Medication Instructions ALPRAZolam (XANAX) 0.5 mg, Oral, 3 times daily PRN metFORMIN XR (GLUCOPHAGE-XR) 500 mg, Oral, Daily with evening meal, Do not crush, chew, or split. metroNIDAZOLE (FLAGYL) 500 mg, Oral, 2 times daily, Do not drink alcohol while taking this medication montelukast (SINGULAIR) 10 mg, Oral, Nightly Multiple Vitamin (Multi Vitamin) tablet Every 24 hours rizatriptan ACCOUNTS ADJUSTABLE CLERK (Maxalt-ACCOUNTS ADJUSTABLE CLERK) 10 MG disintegrating tablet DISSOLVE 1 TABLET ON THE TONGUE NEEDED AT ONSET OF HEADACHE. MAY REPEAT IN 2 HOURS ONE TIME. 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) 01/06/2024 Resolved Ambulatory Problems Diagnosis Date Noted No Resolved Ambulatory Problems Past Medical History: Diagnosis Date Abdominal pain, generalized BMI 23.0-23.9, adult Breast mass 2021 Dysmenorrhea Encounter for gynecological examination (general) (routine) without abnormal findings Migraine (CMS/HCC) Seasonal allergic rhinitis due to pollen HISTORY PAST MEDICAL HISTORY SOCIAL HISTORY Past Medical History: Diagnosis Date Abdominal pain, [...] Not Currently Comment: occasional Drug use: Never FAMILY HISTORY Family History Problem Relation Name Age of Onset Hypertension Mother Binta Cagle Cancer Mother Binta Cagle Hyperlipidemia Father Gonzalo Cagle Cancer Maternal Grandmother Elian Heart Diabetes Paternal Grandmother Yoselyn Cagle Heart disease Paternal Grandfather Blaine Cagle SURGICAL HISTORY Past Surgical History: Procedure Laterality Date BUNIONECTOMY HAND SURGERY REVIEW OF SYSTEMS Review of Systems: Review of Systems All other systems reviewed and are negative. OBJECTIVE Objective: Physical Exam Genitourinary: Breasts: Breasts are soft. Right: Normal. Left: Normal. Vitals: Estimated body mass index is 27.09 kg/m as calculated from the following: Height as of 01/06/24: 5' 4 . Weight as of this encounter: 157 lb 12.8 oz. BP: 140/86 No LMP recorded. (Menstrual status: No Periods). ASSESSMENT & PLAN ICD-10-CM 1. Well woman exam with routine gynecological exam Z01.419 THIN PREP TIS PAP AND HR HPV DNA 2. Encounter for screening mammogram for malignant neoplasm of breast Z12.31 Bilateral screening mammogram Bilateral screening mammogram 3. Vaginal discharge N89.8 metroNIDAZOLE (Flagyl) 500 MG tablet 4. Encounter for weight management Z76.89 metFORMIN XR (Glucophage-XR) 500 MG 24 hr tablet 5. Night sweats R61 6. Hot flashes R23.2 7. Mood changes R45.86 Annual Exam: Patient presents today for an annual exam. Patient states she is doing well and has complaints of vaginal discharge. Will send Flagyl to pharmacy. Patient desires to start weight loss journey and Metformin to be called into pharmacy. Patient to schedule appointment prior to leaving to return in 4 weeks for weight management and hormone discussion. Patient will consider Estrogen/Progesterone. Pap was obtained without difficulty. Patient complaints of night sweats and hot flashes, wt gain and mood changes. Orders Placed This Encounter Procedures Bilateral screening mammogram Follow Up: Patient is to return in one year for annual unless needed otherwise. Documented by Tameka Claros LPN on behalf of: Alex Regalado DO documented in this encounter [facility] 01-06-2024 History of Present illness Narrative Associated [...] MG tablet s documented in this encounter [facility] 12-30-2023 History of Present illness Narrative Images [...] reflexes are 2+ and symmetric throughout. Coordination: Odgkud-zq-cjjy testing and rapid alternating movements are normal [...] and return instructions documented in this encounter [facility] 11-18-2023 History of Present illness Narrative Images [...] episodes. She was seen by [facility] in [place] recently but did not receive full exam, [...] reflexes are 2+ and symmetric throughout. Coordination: Mnegrp-aj-tsvv testing and rapid alternating movements are normal [...] and return instructions documented in this encounter [facility] 11-17-2023 History of Present illness Narrative General [...] clinic hand out for colonoscopy prep rizatriptan ACCOUNTS ADJUSTABLE CLERK (Maxalt-ACCOUNTS ADJUSTABLE CLERK) 10 MG disintegrating tablet DISSOLVE 1 TABLET [...] Ana Long DO documented in this encounter [facility] 11-12-2023 History of Present illness Narrative Associated [...] to General Surgery documented in this encounter [facility] Evaluation note No assessment inform ation available [facility] Work Phone: Evaluation note Diagnosis 3rd [...] of colon- Primary documented in this encounter [facility] HealthcareEvaluation note* Diagnosis 3rd cranial nerve palsy, [...] other specified organisms- Primary 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) Well woman exam with routine gynecological exam Routine gynecological examination Encounter for screening mammogram for malignant neoplasm of breast Vaginal discharge Leukorrhea, not specified as infective Encounter for weight management Night sweats Generalized hyperhidrosis Hot flashes Mood changes Unspecified episodic mood disorder documented in this encounter [facility] HealthcareReason for referral (narrative)* Consultation (Routine) - Pending Review Specialty Diagnoses / Procedures Referred By Nalini shepherd Referred To Contact General Surgery Diagnoses Colon cancer screening Procedures [place] OFFICE/OUTPATIENT [facility] 60 MINUTES Rowdy Gallagher MD [address] [place] [address] Cherrie Long DO [address] [facility] [address] [place] [address] Referral ID Status Reason Start Date Expiration Date Visits Requested Visits Authorized [id number] Pending Review Specialty Services Required 11/12/2023 05/10/2024 1 1 [facility] Summary Purpose Family History No Family [...] and wo contrast routine Sergey Valenzuela DO [address] [place] [address] [facility] Scheduling [address] [place] [address] Referral ID Status Reason Start Date Expiration Date V isits Requested Visits Authorized [id number] Pending Review 11/18/2023 05/16/2024 1 1 Specialty Diagnoses / Procedures Referred By Contac t Referred To Contact Diagnoses 3rd cranial nerve palsy, left Family history of brain aneurysm Procedures CT angiogram head and neck Sergey Valenzuela DO [address] [place] [address] [facility] Scheduling [address] [place] [address] Referral ID Status Reason Start Date Expiration Date V isits Requested Visits Authorized [id number] Pending Review 11/18/2023 05/16/2024 1 1 Additional Source Comments INFORMATION SOURCE (unrecogn ized section and content) DATE CREATED AUTHOR 06/14/2022 [facility] [place] [facility] DATE CREATED AUTHOR AUTHOR'S ORGANIZ ATION 12/12/2023 [facility] DATE CREATED AUTHOR AUTHOR'S ORGANIZ ATION 06/13/2024 [facility] dical Specialists EPIC Care Teams (unrecognized [...] December 10, 2023 End: December 10, 2023 Research Spec Relationship Specialty Start Date End Date Rowdy Gallagher MD [address] [place] [address] PCP - General Family Medicine 11/12/23 Research Spec Relationship Specialty Start Date End Date Rowdy Gallagher MD [address] [place] [address] PCP - General Family Medicine 11/12/23 Research Spec Relationship Specialty Start Date End Date Rowdy Gallagher MD [address] [place] [address] PCP - General Family Medicine 11/12/23 Research Spec Relationship Specialty Start Date End Date Rowdy Gallagher MD [address] [place] [address] PCP - General Family Medicine 11/12/23 Research Spec Relationship Specialty Start Date End Date Rowdy Gallagher MD [address] [place] [address] PCP - General Family Medicine 11/12/23 Research Spec Relationship Specialty Start Date End Date Rowdy Gallagher MD [address] [place] [address] PCP - General Family Medicine 11/12/23 Research Spec Relationship Specialty Start Date End Date Rowdy Gallagher MD [address] [place] [address] PCP - General Family Medicine 11/12/23 Research Spec Relationship Specialty Start Date End Date Rowdy Gallagher MD [address] [place] [address] PCP - General Family Medicine 11/12/23 Research Spec Relationship Specialty Start Date End Date Rowdy Gallagher MD [address] [place] [address] PCP - General Family Medicine 11/12/23 Research Spec Relationship Specialty Start Date End Date Rowdy Gallagher MD [address] [place] [address] PCP - General Family Medicine 11/12/23 Research Spec Relationship Specialty Start Date End Date Rowdy Gallagher MD [address] [place] [address] PCP - General Family Medicine 11/12/23 Research Spec Relationship Specialty Start Date End Date Rowdy Gallagher MD [address] [place] [address] PCP - General Family Medicine 11/12/23 Research Spec Relationship Specialty Start Date End Date Rowdy Gallagher MD [address] [place] [address] PCP - General Family Medicine 11/12/23 Research Spec Relationship Specialty Start Date End Date Rowdy Gallagher MD [address] [place] [address] PCP - General Family Medicine 11/12/23 Research Spec Relationship Specialty Start Date End Date Rowdy Gallagher MD [address] [place] [address] PCP - General Family Medicine 11/12/23 Goals [...] colon cancer. Reason Comments Visual Field Change Reason Comments Well Women Visit FOR RECORDS PERTAINING TO PATIENTS WHO ARE [...] BE BASED ON THE PRIMARY CLINICAL RECORDS. [employer] provides no warranty or guarantee of the accuracy or completeness of information in this document.
== END 2024-07-07 10:34 | disposition home or self-care (01) ==
LOC: MAMMO 10:33
PROVIDERS: PCP Family Medicine; Visit Provider Obstetrics & Gynecology
DX: Z12.31 Encounter for screening mammogram for malignant neoplasm of breast (principal); Z80.3 Family history of malignant neoplasm of breast; Z80.1 Family history of malignant neoplasm of trachea, bronchus and lung; Z80.41 Family history of malignant neoplasm of ovary
CPT/HCPCS: 77063; 77067

== ENCOUNTER 2024-12-22 10:29 | Outpatient (OUT) | payer OTHER, SELFPAY ==
--- OUTSIDE RECORDS SUMMARY | 2024-12-13 11:20 | XMS_ITS | Encounter Summary ---
Author Organization [facility] Address [address] [place] [address] Care Team Providers Care Technicians And Trades Workers Name Role Phone Rowdy Rico MD Primary Care Provider [phone] Reason for Visit * Reason Comments Rash Pt present today to discuss rash under breast. Encounter Details Date Type Department Care Team (Late st Contact Info) Description 12/13/2024 11:20 AM EDT Office Visit [facility] [place] [facility] [address] [place] [address] Taylor Shafer PA [address] [place], [facility] Yeast infection (Primary Dx); Rash, skin Social History Tobacco Use Types Packs/Day Years Used Date Smoking Tobacco: Never Smokeless Tobacco: Never Alcohol Use Standard Drinks/Week Comments Not Currently 0 (1 standard drink = 0.6 oz pur e alcohol) occasional B1300 Health Literacy Answer Date Recor ded How often do you need to hav e someone help you when you read instructions, pamphlets, or other written material from your doctor or pharmacy? Never 11/11/2023 Social Connection and Isolation Panel [NHANES] A nswer Date Recorded In a typical week, how many times do you talk on the phone with family, friends, or neighbors? Twice a week 11/11/19 24 How often do you get togethe r with friends or relatives? Once a week 11/11/2023 How often do you attend chur or mandaeism services? 1 to 4 times per year 11/11/2023 Do you belong to any clubs o r organizations such as spiritism groups, unions, fraternal or athletic groups, or school groups? No 11/11/2023 How often do you attend meet ings of the clubs or organizations you belong to? Never 11/11/2023 Are you , , di vorced, , never , or living with a partner? 11/11/2023 AUDIT-C Answer Date Recorded Q1: How often do you have a drink containing alc ohol? Monthly or less 11/11/2023 Q2: How many drinks containi ng alcohol do you have on a typical day when you are drinking? 1 or 2 11/11/2023 Q3: How often do you have si x or more drinks on one occasion? Never 11/11/2023 Overall Financial Resource Strain (CARDIA) Answe r Date Recorded How hard is it for you to pa y for the very basics like food, housing, medical care, and heating? Not very hard 11/11/2023 [facility] [place] [facility] - Occupational Stress Questionnaire Answer Date Recorded Do you feel stress - tense, restless, nervous, or anxious, or unable to sleep at night because your mind is troubled all the time - these days? Not at all 11/11/2023 Exercise Vital Sign Answer Date Recorde d On average, how many days pe r week do you engage in moderate to strenuous exercise (like a brisk walk)? 5 days 11/11/2023 On average, how many minutes do you engage in exercise at this level? 30 min 11/11/2023 Hunger Vital Sign Answer Date Recorded Within the past 12 months, y ou worried that your food would run out before you got the money to buy more. Never true 11/11/19 24 Within the past 12 months, t he food you bought just didn't last and you didn't have money to get more. Never true 11/11/2023 PRAPARE - Transportation Answer Date Re corded In the past 12 months, has l ack of transportation kept you from medical appointments or from getting medications? No 10/21 In the past 12 months, has l ack of transportation kept you from meetings, work, or from getting things needed for daily living? No 11/11/2023 Housing Stability Vital Sign Answer Bao e Recorded In the last 12 months, was t here a time when you were not able to pay the mortgage or rent on time? No 11/11/2023 In the past 12 months, how m any times have you moved where you were living? 0 11/11/2023 At any time in the past 12 m [facility], were you homeless or living in a residential (including now)? No 11/11/2023 Comments Unknown Sex and Gender Information Value Date Recorded Sex Assigned at Not on file Legal Sex Female 11:47 PM EDT Gender Identity Not on file Sexual Orientation Not on file documented as of this encounter Last Filed Vital Signs Vital Sign Reading Time Taken Comments Blood Pressure 128/76 12/13/2024 11:37 AM EDT Pulse - - Temperature - - Respiratory Rate - - Oxygen Saturation - - Inhaled Oxygen Concentration - - Weight 72.1 kg (159 lb) 12/13/2024 11:37 AM EDT Height 162.6 cm (5' 4 ) 12/13/2024 11:37 AM EDT Body Mass Index 27.29 12/13/2024 11:37 AM EDT documented in this encounter Progress Notes * ONDINA Grijalva - 12/13/2024 11:20 AM EDT Images from the original note were not included. Reason for Appointment: Patient ID: Leesa Gomes is a 49 y.o. female who presents for Rash (Pt present today to discuss rashunder breast.) Patient presents today for Acute Visit. MEDICATIONS Current Outpatient Medications Medication Instructions ??? montelukast (SINGULAIR) 10 mg, Oral, Nightly ??? Multiple Vitamin (Multi Vitamin) tablet Every 24 hours ??? rizatriptan WRAPPER REWINDER (Maxalt-WRAPPER REWINDER) 10 MG disintegrating tablet DISSOLVE 1 TABLET ON THE TONGUE NEEDED AT ONSET OF HEADACHE. MAY REPEAT IN 2 HOURS ONE TIME. ??? SUMAtriptan (IMITREX) 100 mg, Oral, Once as needed ALLERGIES No Known Allergies PROBLEMS Active Ambulatory Problems Diagnosis Date Noted ??? Migraine without aura and without status migrainosus, not intractable 02/26/2023 ??? Non-seasonal allergic rhinitis due to pollen 11/12/2023 ??? Chronic superficial gastritis without bleeding 11/12/2023 ??? Annual physical exam 11/12/2023 ??? Hyperglycemia 11/12/2023 ??? Vision disturbance 11/16/2023 ??? Acute bronchitis due to other specified organisms 01/06/2024 ??? Anxiety with flying 01/06/2024 Resolved Ambulatory Problems Diagnosis Date Noted ??? No Resolved Ambulatory Problems Past Medical History: Diagnosis Date ??? Abdominal pain, generalized ??? BMI 23.0-23.9, adult ??? Breast mass 2021 ??? Dysmenorrhea ??? Encounter for gynecological examination (general) (routine) without abnormal findings ??? Migraine ??? Seasonal allergic rhinitis due to pollen HISTORY PAST MEDICAL HISTORY SOCIAL HISTORY Past Medical History: Diagnosis Date ??? Abdominal pain, generalized ??? Anxiety with flying ??? BMI 23.0-23.9, adult ??? Breast mass 2021 ??? Chronic superficial gastritis without bleeding ??? Dysmenorrhea ??? Encounter for gynecological examination (general) (routine) without abnormal findings ??? Migraine Chronic ??? Seasonal allergic rhinitis due to pollen Social History Tobacco Use ??? Smoking status: Never ??? Smokeless tobacco: Never Substance Use Topics ??? Alcohol use: Not Currently Comment: occasional ??? Drug use: Never FAMILY HISTORY Family History Problem Relation Name Age of Onset ??? Hypertension Mother Binta Cagle ??? Cancer Mother Binta Cagle ??? Hyperlipidemia Father Gonzalo Cagle ??? Cancer Maternal Grandmother Elian Heart ??? Diabetes Paternal Grandmother Yoselyn Cagle ??? Heart disease Paternal Grandfather Blaine Cagle SURGICAL HISTORY Past Surgical History: Procedure Laterality Date ??? BUNIONECTOMY ??? HAND SURGERY REVIEW OF SYSTEMS Review of Systems: Review of Systems Constitutional: Negative. HENT: Negative. Eyes: Negative. Respiratory: Negative. Cardiovascular: Negative. Gastrointestinal: Negative. Genitourinary: Negative. Musculoskeletal: Negative. Skin: Positive for rash. Under breast bilateral Neurological: Negative. All other systems reviewed and are negative. Hematological: Negative. Endocrine: Negative. Allergic/Immunologic: Negative. OBJECTIVE Objective: Physical Exam Constitutional: Appearance: Normal appearance. She is well-developed. Genitourinary: Genitourinary Comments: Tinea noted on chest wall below and under eft breast Cardiovascular: Rate and Rhythm: Normal rate and regular rhythm. Pulmonary: Effort: Pulmonary effort is normal. Breath sounds: Normal breath sounds. Chest: Abdominal: General: Bowel sounds are normal. There is no distension. Palpations: Abdomen is soft. Tenderness: There is no abdominal tenderness. There is no guarding or rebound. Musculoskeletal: General: No swelling. Normal range of motion. Right lower leg: No edema. Left lower leg: No edema. Neurological: Mental Status: She is alert and oriented to person, place, and time. Skin: General: Skin is warm and dry. Comments: Tinea under bilateral breast Psychiatric: Mood and Affect: Mood normal. Behavior: Behavior normal. Vitals and nursing note reviewed. Exam conducted with a paper handler present. Vitals: Estimated body mass index is 27.29 kg/m?? as calculated from the following: Height as of this encounter: 5' 4 . Weight as of this encounter: 159 lb. BP: 128/76 No LMP recorded. Patient is premenopausal. ASSESSMENT & PLAN ICD-10-CM 1. Yeast infection B37.9 2. Rash, skin R21 Patient with tinea rash bilateral breast. Patient given prescription for Nystatin and Diflucan. Patient will schedule follow up for her yearly examination or if symptoms worsen Documented by Rosi Obando NP on behalf of: ONDINA Grijalva documented in this encounter Plan of Treatment Upcoming Encounters Date Type Department Care Team (Late st Contact Info) Description 05/08/2025 8:30 AM EST Office Visit [facility] [address] [place] [place] [phone] Gutierrez Regalado DO [address] [place] [address] documented as of this encounter Visit Diagnoses Diagnosis Yeast infection- Primary Rash, skin Rash and other nonspecific skin eruption documented in this encounter Care Teams Technicians And Trades Workers Relationship Specialty Start Date End Date Rowdy Rico MD PCP - General Family Medicine 11/12/23 documented as of this encounter
--- OUTSIDE RECORDS SUMMARY | 2024-12-22 10:36 | XMS_ITS | Encounter Summary ---
Author Organization [facility] Address [address] [place] [address] Care Team Providers Care Automotive Power Electronics Engineer Name Role Phone Rowdy Rico MD Primary Care Provider [phone] Rowdy Rico MD Primary Care Provider [phone] Encounter Details Date Type Department Care Team (Late st Contact Info) Description 06/11/2023 Clinisync Result Encounter [facility] External Department Unsolicited Gutierrez Regalado DO [address] [place] [address] Social History Tobacco Use Types Packs/Day Years Used Date Smoking Tobacco: Never Smokeless Tobacco: Never Alcohol Use Standard Drinks/Week Comments Yes 0 (1 standard drink = 0.6 oz pur e alcohol) occasional Comments Unknown Sex and Gender Information Value Date Recorded Sex Assigned at Not on file Legal Sex Female 11:47 PM EDT Gender Identity Not on file Sexual Orientation Not on file documented as of this encounter Plan of Treatment Upcoming Encounters Date Type Department Care Team (Late st Contact Info) Description 05/08/2025 8:30 AM EST Office Visit [facility] [address] [place] [phone] Gutierrez Regalado DO [address] [place] [address] documented as of this encounter Procedures Procedure Name Priority Date/Time Associated Diagnosis Comments MM TOMOSYNTHESIS SCREENING BI 06/11/2023 3:17 PM EDT documented in this encounter Results * MM TOMOSYNTHESIS SCREENING BI (06/11/2023 3:17 PM EDT) Anatomical Region Laterality Modality Other 06/11/2023 3:17 PM EDT Narrative 06/11/2023 3:18 [place] [address] Mammography Report Signed Patient: LANETTE SHRESTHA MR#: [id number] : 1975 Acct:[id number] Age/Sex: 47 / F ADM Date: 06/11/23 Loc: MAMMO Attending Dr: Gutierrez Regalado D.O. Ordering Physician: Gutierrez Regalado D.O. Results: Date of Service: 06/11/23 Follow Up: Procedure(s): MM tomosynthesis screening BI Accession Number(s): [id number] cc: Gutierrez Regalado D.O.; Rowdy Rico M.D. Patient Name: LANETTE SHRESTHA MR#: [id number] : 1975 Exam Date: 06/11/2023 Ordering Doctor: DR Gutierrez Regalado . RADIOLOGY REPORT PROCEDURE: MM TOMOSYNTHESIS SCREENING BI COMPARISON: MG MAMM SCREEN 3D JEWEL CAD, 06/05/2022. MG MAMM DX 3D RT CAD, 12/12/2021. MAMMO POST BIOPSY RIGHT, 05/12/2021. MG MAMM SCREEN 3D JEWEL CAD, 04/29/2021. INDICATIONS: Screening Calculator Name NCI Breast Cancer Risk Assessment Tool 5 Year Breast Cancer Risk 1.80% Lifetime Breast Cancer Risk 14.00% Personal Breast Cancer No Personal Ovarian Cancer No Treatments None Family Cancers Grandmother-maternal with breast cancer at age 65; Mother with ovarian cancer at age 67; Aunt-maternal with lung cancer at age 60. LOCATION: [facility] BREAST COMPOSITION: Heterogeneously dense,which may obscure [...] BIOPSIED. Dictated by: Rajesh Olvera M.D. on 06/11/2023 at 15:15 Approved by: Rajesh Olvera M.D. on 06/11/2023 at 15:17 Dictated By: Rajesh Olvera M.D. Signed By: 06/11/23 1518 DD/ 1517 TD/TT: Occupational Therapy Supervisor: Procedure Note Radiology, Radiologist, MD - 06/11/2023 [place] [address] Mammography Report Signed Patient: LANETTE SHRESTHA LMR#: [id number] : 1975Acct:[id number] Age/Sex: 47 / FADM Date: 06/11/23 Loc: MAMMO Attending Dr: Gutierrez Regalado D.O. Ordering Physician: Gutierrez Regalado D.O.Results: Date of Service: 06/11/23Follow Up: Procedure(s): MM tomosynthesis screening BI Accession Number(s): [id number] cc: Gutierrez Regalado D.O.; Rowdy Rico M.D. Patient Name: LANETTE SHRESTHA MR#: [id number] : 1975 Exam Date: 06/11/2023 Ordering Doctor: DR Gutierrez Regalado . RADIOLOGY REPORT PROCEDURE: MM TOMOSYNTHESIS SCREENING BI COMPARISON: MG MAMM SCREEN 3D JEWEL CAD, 06/05/2022. MG MAMM DX 3D RTCAD, 12/12/2021. MAMMO POST BIOPSY RIGHT, 05/12/2021. MG MAMM SCREEN 3D BILCAD, 04/29/2021. INDICATIONS: Screening Calculator Name NCI Breast Cancer Risk Assessment Tool 5 Year Breast Cancer Risk 1.80% Lifetime Breast Cancer Risk 14.00% Personal Breast Cancer No Personal Ovarian Cancer No Treatments None Family Cancers Grandmother-maternal with breast cancer at age 65;Mother with ovarian cancer at age 67; Aunt-maternal with lung cancer at age 60. LOCATION: [facility] BREAST COMPOSITION: Heterogeneously dense,which may obscure smallmasses. FINDINGS: DIAGNOSTIC CATEGORY 1--NEGATIVE. RIGHT BREAST: No significant suspicious finding. No significant changehas occurred. LEFT BREAST: No significant suspicious finding. No significant changehas occurred. RECOMMENDATIONS: ROUTINE MAMMOGRAM AND CLINICAL EVALUATION IN 12 MONTHS. PLEASE NOTE: A NORMAL MAMMOGRAM DOES NOT EXCLUDE THE POSSIBILITY OFBREAST CANCER. A CLINICALLY SUSPICIOUS PALPABLE LUMP SHOULD BE BIOPSIED. Dictated by: Rajesh Olvera M.D. on 06/11/2023 at 15:15 Approved by: Rajesh Olvera M.D. on 06/11/2023 at 15:17 Dictated By: Rajesh Olvera M.D. Signed By:06/11/23 1518 DD/ 1517 TD/TT: Occupational Therapy Supervisor: us Gutierrez Sabine DO [facility] Final Result documented in this encounter Visit Diagnoses Not on filedocumented in this encounter Care Teams Automotive Power Electronics Engineer Relationship Specialty Start Date End Date Rowdy Rico MD PCP - General Family Medicine 05/03/23 11/11/23 Rowdy Rico MD PCP - General Family Medicine 11/12/23 documented as of this encounter
--- OUTSIDE RECORDS SUMMARY | 2024-12-22 10:36 | XMS_ITS | Clinical Summary ---
Author Organization [facility] Healthcare Address [address] [place] [address] Care Team Providers Care Grab Driver Name Role Phone Rowdy Rico MD Primary Care Provider [phone] Allergies No known active allergies Medications Multiple Vitamin (Multi Vitamin) tablet 1 (one) time each day at the same time Active rizatriptan BOW MAKER (Maxalt-BOW MAKER) 10 MG disintegrating tabletIndications: Migraine without aura and without status migrainosus, not intractable DISSOLVE 1 TABLET ON THE TONGUE NEEDED AT ONSET OF HEADACHE. MAY REPEAT IN 2 HOURS ONE TIME. 12 tablet 3 01/24/20 24 Active SUMAtriptan (Imitrex) 100 MG tabletIndications: Migraine without aura and without status migrainosus, not intractable Take 1 tablet (100 mg) by mouth 1 (one) time if needed for migraine 9 tablet 3 05/10/19 25 Active montelukast (Singulair) 10 MG tabletIndications: Seasonal allergic rhinitis due to pollen TAKE 1 TABLET BY MOUTH EVERYDAY AT BEDTIME 21 tablet 4 08/22/19 25 Active nystatin (Mycostatin) 046685 UNIT/GM powderIndications: Rash, skin,Yeast infection Apply topically in the morning and in the evening and before bedtime. 15 g 12/14/19 25 026 Active venlafaxine XR (Effexor XR) 37.5 MG 24 hr capsuleIndications :Menopausal and female climacteric states,Symptomatic menopausal or female climacteric states TAKE 1 CAPSULE BY MOUTH EVERY DAY 90 capsule 3 11/15/19 24 025 Discontinu ed(Therapy completed) ALPRAZolam (Xanax) 0.5 MG tabletIndications: Anxiety with flying Take 1 tablet (0.5 mg) by mouth 3 (three) times a day as needed for anxiety for up to 5 days 15 tablet 01/06/20 025 Discontinu ed(Therapy completed) metFORMIN XR (Glucophage-XR) 500 MG 24 hr tabletIndications: Encounter for weight management Take 1 tablet (500 mg) by mouth in the evening. Take with meals Do not crush, chew, or split. 30 tablet 05/04/19 025 Discontinu ed(Therapy completed) estrogen, conjugated,-medrox yPROGESTERone (Prempro) 0.3-1.5 MG tabletIndications: Medication management,Hot flashes,Night sweats,Mood changes Take 1 tablet by mouth Daily 30 tablet 06/13/19 025 Discontinu ed(Therapy completed) fluconazole (Diflucan) 150 MG tabletIndications: Yeast infection Take 1 tablet (150 mg) by mouth 1 (one) time for 1 dose This is a 1 time dose, take single tablet by mouth. May repeat dose in 1 week 2 tablet 12/14/19 025 Active Problems Problem Noted Date Diagnosed Date Acute bronchitis due to other specified organism s 01/06/2024 Assessment & Plan (01/06/2024 11:22 AM EDT): Take antibiotics for 7 days. Use prednisone [...] if no better or worse call for re- evaluation. 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 Never had colon cancer screening and refer to surgeon. Discussed proper diet and regular aerobic exercise. Need aerobic exercise 5-6 days a week for 30 minutes at a time. Smaller portions and limit total calories. Tetanus every 10 years. Advised not to smoke. Discussed daily Aspirin therapy. Hyperglycemia 11/12/2023 Migraine without aura and wi thout status migrainosus, not intractable 02/26/2023 Encounters Date Type Department Care Team Description 12/13/2024 11:20 AM EDT Office Visit [facility] [address] [place] [address] [place] [address] Taylor Shafer PA Yeast infection (Primary Dx); Rash, skin 12/13/2024 Bamboo flowsheet [facility] [address] [place] [address] [place] [address] Taylor Shafer PA 12/12/2024 Travel from Last 3 Months Family History Medical History Relation Name Comments Hyperlipidemia Father Gonzalo Cagle Cancer Maternal Grandmother Elian Heart Cancer Mother Binta Cagle Hypertension Mother Binta Cagle Heart disease Paternal Grandfather Blaine Cagle Diabetes Paternal Grandmother Yoselyn Cagle Relation Name Status Comments Father Gonzalo Cagle Maternal Grandmother Elian Heart Mother Binta Cagle Paternal Grandfather Blaine Cagle Paternal Grandmother Yoselyn Cagle Social History Tobacco Use Types Packs/Day Years Used Date Smoking Tobacco: Never Smokeless Tobacco: Never Tobacco Cessation:Counseling Given: Not Answered Alcohol Use Standard Drinks/Week Comments Not Currently [...] friends, or neighbors? Twice a week 11/11/19 How often do you get togethe r with friends or relatives? Once a week 11/11/2023 How often do you attend [facility] or jainism services? 1 to 4 times per year 11/11/2023 Do you belong to any clubs o r organizations such as tenriism groups, unions, fraternal or athletic groups, or [...] care, and heating? Not very hard 11/11/2023 [facility] - Occupational Stress Questionnaire Answer Date Recorded [...] any time in the past 12 m [facility], were you homeless or living in a longterm (including now)? No 11/11/2023 Comments Unknown Sex and Gender Information Value Date Recorded Sex Assigned at Not on file Legal Sex Female 11:47 PM EDT Gender Identity Not on file Sexual Orientation Not on file Last Filed Vital Signs Vital Sign Reading Time Taken Comments Blood Pressure 128/76 12/13/2024 11:37 AM EDT Pulse 94 01/06/2024 11:03 AM EDT Temperature 36.4 C (97.5 F) 01/06/2024 11:03 AM EDT Respiratory Rate 22 01/06/2024 11:03 AM EDT Oxygen Saturation 98% 01/06/2024 11:03 AM EDT Inhaled Oxygen Concentration - - Weight 72.1 kg (159 lb) 12/13/2024 11:37 AM EDT Height 162.6 cm (5' 4 ) 12/13/2024 11:37 AM EDT Body Mass Index 27.29 12/13/2024 11:37 AM EDT Plan of Treatment Upcoming Encounters Date Type Department Care Team (Late st Contact Info) Description 05/08/2025 8:30 AM EST Office Visit [facility] [address] [facility] [address] Gutierrez Regalado, [address] [facility] [place] [address] Health Maintenance Due Date Last Done Comments CT Colonography 1974 Colonoscopy 1974 Colorectal Cancer Screening 1974 FIT-DNA 1974 FIT 1974 FOBT 1975 Sigmoidoscopy 1974 Influenza Vaccine (#1) 2024 12/29/2022 Mammogram 07/07/2025 07/07/2024, 05/21, 06/11/2023, Additional history exists Cervical Cancer Screening 05/04/2029 HPV/Cotest 05/04/2029 Pap Smear 05/04/2029 05/04/2024 Procedures Procedure Name Priority Date/Time Associated Diagnosis Comments MM TOMOSYNTHESIS SCREENING BI 07/07/2024 3:11 PM EDT PAP SMEAR Routine 05/04/2024 12:00 AM EST from Last 3 Months or Most Recently Relevant to Health Maintenance Results * MM TOMOSYNTHESIS SCREENING BI (07/07/2024 3:11 PM EDT) Anatomical Region Laterality Modality Other 07/07/2024 3:11 PM EDT Narrative 07/07/2024 3:12 [place] [address] Mammography Report Signed Patient: LEESA SHRESTHA MR#: [id number] : 1975 Acct:[id number] Age/Sex: 48 / F ADM Date: 07/07/24 Loc: MAMMO Attending Dr: Gutierrez Regalado D.O. Ordering Physician: Gutierrez Regalado D.O. Results: Date of Service: 07/07/24 Follow Up: Procedure(s): MM tomosynthesis screening BI Accession Number(s): [id number] cc: Gutierrez Regalado D.O.; Rowdy Rico M.D. Patient Name: LEESA SHRESTHA MR#: [id number] : 1975 Exam Date: 07/07/2024 Ordering Doctor: DR Gutierrez Regalado . RADIOLOGY REPORT PROCEDURE: MM TOMOSYNTHESIS SCREENING BI COMPARISON: MM TOMOSYNTHESIS SCREENING BI, 06/11/2023. MG MAMM SCREEN 3D JEWEL CAD, 06/05/2022. MG MAMM DX 3D RT CAD, 12/12/2021. MG MAMM SCREEN 3D JEWEL CAD, 04/29/2021. INDICATIONS: Screening Calculator Name NCI Breast Cancer Risk Assessment Tool 5 Year Breast Cancer Risk 1.60% Lifetime Breast Cancer Risk 13.60% Personal Breast Cancer No Personal Ovarian Cancer No Treatments None Family Cancers Grandmother-maternal with breast cancer at age 65; Mother with ovarian cancer at age 67; Aunt-maternal with lung cancer at age 60. LOCATION: [facility] BREAST COMPOSITION: The breasts are heterogeneously dense,which may obscure small masses. FINDINGS: DIAGNOSTIC CATEGORY 1--NEGATIVE. RIGHT BREAST: No significant suspicious finding. LEFT BREAST: No significant suspicious finding. RECOMMENDATIONS: ROUTINE MAMMOGRAM AND CLINICAL EVALUATION IN 12 MONTHS. PLEASE NOTE: A NORMAL MAMMOGRAM DOES NOT EXCLUDE THE POSSIBILITY OF BREAST CANCER. A CLINICALLY SUSPICIOUS PALPABLE LUMP SHOULD BE BIOPSIED. Dictated by: Zion Chavira DO on 07/07/2024 at 15:09 Approved by: Zion Chavira DO on 07/07/2024 at 15:11 Dictated By: Zion Chavira M.D. Signed By: 07/07/24 1512 DD/ 151 TD/TT: Marketing Senior Recruiter: Procedure Note Radiology, Radiologist, MD - 07/07/2024 [place] [address] Mammography Report Signed Patient: LEESA SHRESTHA LMR#: [id number] : 1975Acct:[id number] Age/Sex: 48 / FADM Date: 07/07/24 Loc: MAMMO Attending Dr: Gutierrez Regalado D.O. Ordering Physician: Gutierrez Regalado D.O.Results: Date of Service: 07/07/24Follow Up: Procedure(s): MM tomosynthesis screening BI Accession Number(s): [id number] cc: Gutierrez Regalado D.O.; Rowdy Rico M.D. Patient Name: LEESA SHRESTHA MR#: [id number] : 1975 Exam Date: 07/07/2024 Ordering Doctor: DR Gutierrez Regalado . RADIOLOGY REPORT PROCEDURE: MM TOMOSYNTHESIS SCREENING BI COMPARISON: MM TOMOSYNTHESIS SCREENING BI, 06/11/2023. MG MAMM [id number] JEWEL CAD, 06/05/2022. MG MAMM DX 3D RT CAD, 12/12/2021. MG MAMM SCREEN 3DBIL CAD, 04/29/2021. INDICATIONS: Screening Calculator Name NCI Breast Cancer Risk Assessment Tool 5 Year Breast Cancer Risk 1.60% Lifetime Breast Cancer Risk 13.60% Personal Breast Cancer No Personal Ovarian Cancer No Treatments None Family Cancers Grandmother-maternal with breast cancer at age 65;Mother with ovarian cancer at age 67; Aunt-maternal with lung cancer at age 60. LOCATION: [facility] BREAST COMPOSITION: The breasts are heterogeneously dense,which may obscure small masses. FINDINGS: DIAGNOSTIC CATEGORY 1--NEGATIVE. RIGHT BREAST: No significant suspicious finding. LEFT BREAST: No significant suspicious finding. RECOMMENDATIONS: ROUTINE MAMMOGRAM AND CLINICAL EVALUATION IN 12 MONTHS. PLEASE NOTE: A NORMAL MAMMOGRAM DOES NOT EXCLUDE THE POSSIBILITY OFBREAST CANCER. A CLINICALLY SUSPICIOUS PALPABLE LUMP SHOULD BE BIOPSIED. Dictated by: Zion Chavira DO on 07/07/2024 at 15:09 Approved by: Zion Chavira DO on 07/07/2024 at 15:11 Dictated By: Zion Chavira M.D. Signed By:07/07/24 1512 DD/ 151 TD/TT: Marketing Senior Recruiter: Generic External Data Provider [facility] Final Result * Pap Smear (05/04/2024 12:00 AM EST) Swab Cervical swab / Unknown Gutierrez Regalado DO LAB CYTOLOGY ORDERABLES Final Re sult EXTERNAL LAB from Last 3 Months or Most Recently Relevant to Health Maintenance [place] [facility] [place] Address: [facility] [id number] [place] [phone] Care Teams Grab Driver Relationship Specialty Start Date End Date Rowdy Rico MD PCP - General Family Medicine 11/12/23
--- OUTSIDE RECORDS SUMMARY | 2024-12-22 10:36 | XMS_ITS | Encounter Summary ---
Author Organization [facility] Address [address] [place] [facility] [place] [address] Care Team Providers Care Dough Brake Machine Operator Name Role Phone Rowdy Rico MD Primary Care Provider [phone] Rowdy Rico MD Primary Care Provider [phone] Encounter Details Date Type Department Care Team (Late st Contact Info) Description 06/14/2023 Orders Only [facility] REPLACED BY [facility] [address] [facility] [place] [id number] Gutierrez Regalado DO [address] [facility] [address] [place], [place] [id number] Social History Tobacco Use Types Packs/Day Years [...] 8:30 AM EST Office Visit [facility] [place] [facility] [address] [facility] [facility] [place] [address] Gutierrez Regalado DO [address] [facility] [address] [place], [place] [id number] documented as of this encounter Procedures Procedure Name Priority Date/Time Associated Diagnosis Comments MM SCREENING MAMM WITH 3D GÓMEZ - US AND ADDITIONAL Routine 06/11/2023 11:30 AM EDT documented in this encounter Results * MM SCREENING MAMM WITH 3D GÓMEZ - US AND ADDITIONAL (06/11/2023 11:30 AM EDT) Anatomical Region Laterality Modality Radiographic Danyell ging us Gutierrez Sabine DO IMG XR PROCEDURES Final Result documented in this encounter Visit Diagnoses Not on filedocumented in this encounter Care Teams Dough Brake Machine Operator Relationship Specialty Start Date End Date Rowdy Rico MD PCP - General Family Medicine 05/03/23 11/11/23 Rowdy Rico MD PCP - General Family Medicine 11/12/23 documented as of this encounter
--- OUTSIDE RECORDS SUMMARY | 2024-12-22 10:36 | XMS_ITS | Encounter Summary ---
Author Organization [facility] Address [address] [place] [address] Care Team Providers Care Justice Of The Peace Name Role Phone Rowdy Rico MD Primary Care Provider [phone] Rowdy Rico MD Primary Care Provider [phone] Reason for Visit * Reason Comments Med Refill Encounter Details Date Type Department Care Team (Late Contact Info) Description 09/07/2023 Refill [facility] [address] [place] [address] Rowdy Rico MD [address] [place] [address] Migraine without aura and without status migrainosus, not intractable Social History Tobacco Use Types Packs/Day Years [...] Encounters Date Type Department Care Team (Late Contact Info) Description 05/08/2025 8:30 AM EST Office Visit [facility] [place] [facility] [address] [facility] [place] [address] Gutierrez Regalado DO [address] [place], [place] [id number] documented as of this encounter Visit Diagnoses Diagnosis Migraine without aura and without status migrainosus, not intractable documented in this encounter Care Teams Justice Of The Peace Relationship Specialty Start Date End Date Rowdy Rico MD PCP - General Family Medicine 05/03/23 11/11/23 Rowdy Rico MD PCP - General Family Medicine 11/12/23 documented as of this encounter
--- OUTSIDE RECORDS SUMMARY | 2024-12-22 10:36 | XMS_ITS | Encounter Summary ---
Author Organization [facility] Address [address] [place] [address] Care Team Providers Care Public Address Announcer Name Role Phone Rowdy Rico MD Primary Care Provider [phone] Rowdy Rico MD Primary Care Provider [phone] Rowdy Rico MD Primary Care Provider [phone] Reason for Visit * Reason Comments Med Refill Encounter Details Date Type Department Care Team (Late st Contact Info) Description 02/26/2023 Refill [facility] [address] [place] [address] Rowdy Rico MD [address] [place] [address] Migraine without aura and without status migrainosus, not intractable (Primary Dx) Social History Tobacco Use Types Packs/Day Years Used Date Smoking Tobacco: Never Assessed Comments Unknown Sex and Gender Information Value Date Recorded Sex Assigned at Not on file Legal Sex Female 11:47 PM EDT Gender Identity Not on file Sexual Orientation Not on file documented as of this encounter Plan of Treatment Upcoming Encounters Date Type Department Care Team (Late st Contact Info) Description 05/08/2025 8:30 AM EST Office Visit [facility] [place] [facility] [address] [facility] [place] [address] Gutierrez Regalado DO [address] [facility] [address] documented as of this encounter Visit Diagnoses Diagnosis Migraine without aura and without status migrainosus, not intractable- Primary documented in this encounter Care Teams Public Address Announcer Relationship Specialty Start Date End Date Rowdy Rico MD PCP - General Family Medicine 10/23/22 05/02/23 Rowdy Rico MD PCP - General Family Medicine 05/03/23 11/11/23 Rowdy Rico MD PCP - General Family Medicine 11/12/23 documented as of this encounter
--- OUTSIDE RECORDS SUMMARY | 2024-12-22 10:36 | XMS_ITS | Encounter Summary ---
Author Organization [facility] Address [address] [facility] [place] [address] Care Team Providers Care Circulation Crew Leader Name Role Phone oRwdy Rico MD Primary Care Provider [phone] Encounter Details Date Type Department Care Team (Latest Contact Info) Description 12/12/2024 Travel Social History Tobacco Use Types Packs/Day Years [...] 11/11/2023 How often do you attend chur ch or baptist services? 1 to 4 times per year 11/11/2023 Do you belong to any clubs o r organizations such as latter-day groups, unions, fraternal or athletic groups, or [...] care, and heating? Not very hard 11/11/2023 [facility] - Occupational Stress Questionnaire Answer Date [...] any time in the past 12 m [facility], were you homeless or living in a penitentiary (including now)? No 11/11/2023 Comments Unknown Sex and Gender Information Value Date Recorded Sex Assigned at Not on file Legal Sex Female 11:47 PM EDT Gender Identity Not on file Sexual Orientation Not on file documented as of this encounter Plan of Treatment Upcoming Encounters Date Type Department Care Team (Late st Contact Info) Description 05/08/2025 8:30 AM EST Office Visit [facility] [address] [facility] [place] [address] Gutierrez Regalado DO [address] [facility] [place] [place] [address] documented as of this encounter Visit Diagnoses Not on filedocumented in this encounter Care Teams Circulation Crew Leader Relationship Specialty Start Date End Date Rowdy Rico MD PCP - General Family Medicine 11/12/23 documented as of this encounter
--- OUTSIDE RECORDS SUMMARY | 2024-12-22 10:36 | XMS_ITS | Encounter Summary ---
Author Organization [facility] Address [address] [facility] [place] [address] Care Team Providers Care Hat Forming Machine Operator Name Role Phone Rowdy Rico MD Primary Care Provider [phone] Encounter Details Date Type Department Care Team (Late st Contact Info) Description 12/13/2024 Bamboo flowsheet [facility] [address] [facility] [place] [address] Taylor Shafer PA [address] [facility] [address] [place], [facility] Social History Tobacco Use Types Packs/Day Years [...] often do you attend chur ch or jehovah's witness services? 1 to 4 times per year 11/11/2023 Do you belong to any clubs o r organizations such as hoahaoism groups, unions, fraternal or athletic groups, or [...] care, and heating? Not very hard 11/11/2023 [facility] [place] [facility] - Occupational Stress [...] any time in the past 12 m [facility], were you homeless or living in a halfway (including now)? No 11/11/2023 Comments Unknown Sex [...] EST Office Visit [facility] [address] [facility] [place] [address] Gutierrez Regalado DO [address] [facility] [place] [address] documented as of this encounter Visit Diagnoses Not on filedocumented in this encounter Care Teams Hat Forming Machine Operator Relationship Specialty Start Date End Date Rowdy Rico MD PCP - General Family Medicine 11/12/23 documented as of this encounter
--- OUTSIDE RECORDS SUMMARY | 2024-12-22 10:40 | XMS_ITS | CCD ---
Author Organization [facility] Care Team Providers Care Resident Care Provider Name Role Phone SABINE, ALEX Admitting Unavailable SABINE, ALEX Attending Unavailable AILEEN, DR ROWDY Reid Primary Care Unavailable SABINE, ALEX Consulting Unavailable KADE, DR RAJESH Shirley Consulting Unavailable SABINE, ALEX Admitting Unavailable SABINE, ALEX Attending Unavailable AILEEN, DR ROWDY Reid Primary Care Unavailable Rey Plata Consulting Unavailable SABINE, ALEX Consulting Unavailable SABINE, ALEX Admitting Unavailable SABINE, ALEX Attending Unavailable DR ROWDY GALLAGHER Primary Care Unavailable SABINE, ALEX Consulting Unavailable MD Rowdy Gallagher Primary Care Provider DO Sergey Valenzuela Attending Provider [phone] Sergey Valenzuela Admitting UnavailSergey Small Attending UnavailRowdy Eugene Primary Care Unavailable Sergey Valenzuela Attending UnavailRowdy Eugene Primary Care Unavailable Sergey Valenzuela Admitting Unavailab Rowdy Blankenship MD Primary Care Provider Rowdy Gallagher MD Primary Care Provider CARI REGALADOY Attending Unavailable SABINE, ALEX Attending Unavailable SERGEY VALENZUELA Unavailable ROWDY GALLAGHER Attending Unavailable TAYLOR MARTINEZ Attending Unavailable Allergies Allergy Classification Reported Allergen(s) Allergy Type Date of Onset Reaction(s) Facility (1 source) Unable to Assess Drug allergy (disorder) 12-10-2023 Repository Medications Current Medications Medication Drug Class(es) Dates Sig (Normalized) Sig (Original) ALPRAZolam 0.5 mg oral tablet (10 sources) Benzodiazepine Start: 4 End: take 1 tablet by mouth three times daily as needed for anxiety ALPRAZolam (Xanax) 0.5 MG tablet Indications: Anxiety with flying Take 1 tablet (0.5 mg) by mouth 3 (three) times a day as needed for anxiety for up to 5 days 15 tablet 01/06/2024 12/13/2024 Discontinued (Therapy completed) bisacodyl 5 mg delayed release oral tablet (2 sources) Stimulant Laxative Start: 4 End: 4 take 1 tablet by mouth once bisacodyl (Dulcolax) 5 MG EC tablet Indications: Screening for malignant neoplasm of colon Take 1 tablet (5 mg) by mouth 1 time for 1 dose Do not crush, chew, or split. Take as detailed on clinic hand out for colonoscopy prep 1 tablet 11/17/2023 11/17/2023 Active estrogens, conjugated (fci) 0.3 mg / medroxyPROGESTERone acetate 1.5 mg oral tablet (4 sources) Progestin, Estrogen Start: 5 End: 6 take 0.3-1.5 mg by mouth once daily estrogen, conjugated,-medro xyPROGESTERone (Prempro) 0.3-1.5 MG tablet Indications: Medication management , Hot flashes , Night sweats , Mood changes Take 1 tablet by mouth Daily 30 tablet 11 06/12/2024 12/13/2024 Discontinued (Therapy completed) fluconazole 150 mg oral tablet (2 sources) Azole Antifungal Start: 5 End: 5 take 1 tablet by mouth once, then take 1 tablet by mouth once, then take 1 tablet by mouth every week fluconazole (Diflucan) 150 MG tablet Indications: Yeast infection Take 1 tablet (150 mg) by mouth 1 (one) time for 1 dose This is a 1 time dose, take single tablet by mouth. May repeat dose in 1 week 2 tablet 12/13/2024 12/13/2024 Active levoFLOXacin 750 mg oral tablet (2 sources) Quinolone Antimicrobial Start: 4 End: 4 take 1 tablet by mouth once daily levoFLOXacin (Levaquin) 750 MG tablet Indications: Acute bronchitis due to other specified organisms Take 1 tablet (750 mg) by mouth Daily for 7 days 7 tablet 01/06/2024 01/13/2024 Active 24 hr metFORMIN hydrochloride 500 mg extended release oral tablet (8 sources) Biguanide Start: End: take 1 tablet by mouth every twenty-four hours at mealtime metFORMIN XR (Glucophage-XR) 500 MG 24 hr tablet Indications: Encounter for weight management Take 1 tablet (500 mg) by mouth in the evening. Take with meals Do not crush, chew, or split. 30 tablet 11 05/04/2024 12/13/2024 Discontinued (Therapy completed) metroNIDAZOLE 500 mg oral tablet (3 sources) Nitroimidazole Antimicrobial Start: 5 End: 5 take 1 tablet by mouth in the morning metroNIDAZOLE (Flagyl) 500 MG tablet Indications: Vaginal discharge Take 1 tablet (500 mg) by mouth in the morning and 1 tablet (500 mg) before bedtime. Do all this for 7 days. Do not drink alcohol while taking this medication. 14 tablet 05/04/2024 05/11/2024 Active montelukast 10 mg oral tablet (20 sources) Leukotriene Receptor Antagonist Start: take 1 tablet by mouth once daily at bedtime montelukast (Singulair) 10 MG tablet Indications: Seasonal allergic rhinitis due to pollen TAKE 1 TABLET BY MOUTH EVERYDAY AT BEDTIME 21 tablet 4 08/21/2024 Active Start: 01-12-2024 End: 05-08-2024 take 1 tablet [...] each day at the same time Active nystatin 100 unt/mg topical powder (2 sources) Polyene Antifungal Start: 12-14-19 25 End: 12-14-19 26 nystatin (Mycostatin) 704157 UNIT/GM powder Indications: Rash, skin , Yeast infection Apply topically in the morning and in the evening and before bedtime. 15 g 12/13/2024 12/13/2025 Active polyethylene glycol 3350 44940 mg powder for oral solution (2 sources) Osmotic Laxative Start: 11-17-19 End: 11-17-19 take 17 g by mouth once polyethylene glycol, PEG, 3350 (Glycolax) 17 GM/SCOOP powder Indications: Colonoscopy Take 238 g by mouth 1 (one) time for 1 dose Take as detailed from clinic hand out for colonoscopy prep 238 g 11/17/2023 11/17/2023 Active predniSONE 50 mg oral tablet (2 sources) Start: 01-06-20 End: 01-12-20 take 1 tablet by mouth once daily predniSONE (Deltasone) 50 MG tablet Indications: Acute bronchitis due to other specified organisms Take 1 tablet (50 mg) by mouth Daily for 6 days 6 tablet 01/06/2024 01/12/2024 Active rizatriptan 10 mg disintegrating oral tablet (20 sources) Serotonin-1b and Serotonin-1d Receptor Agonist Start: 09-08-19 End: 01-24-20 rizatriptan MAJOR CASE DETECTIVE (Maxalt-MAJOR CASE DETECTIVE) 10 MG disintegrating tablet Indications: Migraine without aura and without status migrainosus, not intractable DISSOLVE 1 TABLET ON THE TONGUE NEEDED AT ONSET OF HEADACHE. MAY REPEAT IN 2 HOURS ONE TIME. 12 tablet 3 01/24/2024 Active SUMAtriptan 100 mg oral tablet (20 sources) Serotonin-1b and Serotonin-1d Receptor Agonist Start: 05-10-19 take 1 tablet by mouth once SUMAtriptan [...] Serotonin and Norepinephrine Reuptake Inhibitor Start: 11-15-2023 End: 12-13-2024 take 1 capsule by mouth once daily venlafaxine XR (Effexor XR) 37.5 MG 24 hr capsule Indications: Menopausal and female climacteric states , Symptomatic menopausal or female climacteric states TAKE 1 CAPSULE BY MOUTH EVERY DAY 90 capsule 3 11/15/2023 12/13/2024 Discontinued (Therapy completed) Start: 10-22-2023 take 1 capsule by mo [facility] once daily venlafaxine XR (Effexor XR) 37.5 MG 24 hr capsule Take 37.5 mg by mouth Daily 10/22/2023 Active Problems Active Problems Problem Classification Problem Date Documented Date Episodic/Chronic Administrative/social admission (2 sources) Patient encounter status; Translations: [Persons encountering health services in other specified circumstances] 05-04-2024 Episodic Anxiety disorders (14 sources) Anxiety; 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] Onset: [...] in mood; Translations: [Emotional lability] 05-04-2024 Episodic Mycoses (2 sources) Mycosis; Translations: [Candidiasis, unspecified] 12-13-2024 Episodic Other eye disorders (1 source) Third [...] sweats; Translations: [Generalized hyperhidrosis] 05-04-2024 Episodic Other skin disorders (2 sources) Eruption; Translations: [Rash and other nonspecific skin eruption] 12-13-2024 Episodic Other upper respiratory disease (20 sources) [...] Date Documented Da te Episodic/Chronic Acute bronchitis (14 sources) Acute infective bronchitis; Translations: [Acute bronchitis due to other specified organisms] Onset: 01-06-2024 01-06-2024 Episodic Blindness and vision defects (20 sources) Visual disturbance; Translations: [Unspecified visual disturbance] Onset: 11-16-2023 11-16-2023 Episodic Diabetes mellitus without complication (20 sources) Hyperglycemia; Translations: [Hyperglycemia, unspecified] Onset: 11-12-2023 11-12-2023 Episodic Other circulatory disease (2 sources) Elevated blood pressure; Translations: [Elevated blood-pressure reading, without diagnosis of hypertension] 11-18-2023 Episodic Results Test Name Value Interpretation Reference Range Facility MM TOMOSYNTHESIS SCREENING B Ion 07-07-2024 [place] [address] Mammography Report Signed Patient: LEESA SHRESTHA MR#: [id number] : 1975 Acct:[id number] Age/Sex: 48 / F ADM Date: 07/07/24 Loc: MAMMO Attending Dr: Alex Regalado D.O. Ordering Physician: Alex Regalado D.O. Results: Date of Service: 07/07/24 Follow Up: Procedure(s): MM tomosynthesis screening BI Accession Number(s): [id number] cc: Alex Regalado D.O.; Rowdy Gallagher M.D. Patient Name: LEESA SHRESTHA MR#: [id number] : 1975 Exam Date: 07/07/2024 Ordering Doctor: DR Alex Regalado . RADIOLOGY REPORT PROCEDURE: MM TOMOSYNTHESIS [...] lung cancer at age 59. LOCATION: [facility] BREAST COMPOSITION: The breasts are heterogeneously dense,which [...] Chavira M.D. Signed By: 07/07/24 1512 DD/ 1511 TD/TT: Pharmacy Laboratory Technician: [facility] Radiology, Radiologist, MD - 07/07/2024 [place] [address] Mammography Report Signed Patient: LEESA SHRESTHA MR#: [id number] : 1975 Acct:[id number] Age/Sex: 48 / F ADM Date: 07/07/24 Loc: MAMMO Attending Dr: Alex Regalado D.O. Ordering Physician: Alex Regalado D.O. Results: Date of Service: 07/07/24 Follow Up: Procedure(s): MM tomosynthesis screening BI Accession Number(s): [id number] cc: Alex Regalado D.O.; Rowdy Gallagher M.D. Patient Name: LEESA SHRESTHA MR#: [id number] : 1975 Exam Date: 07/07/2024 Ordering Doctor: DR Alex Regalado . RADIOLOGY REPORT PROCEDURE: MM TOMOSYNTHESIS [...] lung cancer at age 59. LOCATION: [facility] BREAST COMPOSITION: The breasts are heterogeneously dense,which [...] Dictated By: Zion Chavira M.D. Signed By: 07/07/241511 DD/ 10 TD/TT: [facility] Study observation (narrative) [employer] MM TOMOSYNTHESIS SCREENING B IOrdered By: Radiologist Radiology on 07-07-2024 [employer] Work Phone: IGP,APTIMA HPV,AGE GDLNon AGE GDLN ACOG TESTING Note . [facility] [employer] Comment on above: TESTS RESULT FLAG UN ITS REF RANGE LAB Clinician Provided Cytology Information Source.............Cervix;Endocervix No. of containers..01 ThinPrep Vial Age Algo ACOG Shana... FLAG LEGEND: L-Low Normal,H-High Normal,LL-Alert Low,HH-Alert High <-Panic Low,>-Panic High,A-Abnormal,AA-Critical Abnormal Performed at: 01 =G [address] [place] [address] Ruth Maradiaga MD, HPV APTIMA Negative Negative [facility] Comment on above: This nucleic acid am plification test detects fourteen high- risk HPV types (16,18,31,33,35,39,45,51,52,56,58,59,66,68) without differentiation. Performed at: = - [address] [id number] Electric System Operator: Ruth Maradiaga MD, Phone: [phone] Performed at: [address] [id number] Electric System Operator: Ruth Maradiaga MD, Phone: [phone] IGP, APTIMA HPV, RFX 16/18,45 Note . [facility] Comment on above: TESTS RESULT FLAG UN ITS REF RANGE LAB DIAGNOSIS: 02 NEGATIVE FOR INTRAEPITHELIAL LESION OR MALIGNANCY. Specimen adequacy: 02 Satisfactory for evaluation. Endocervical and/or squamous metaplastic cells (endocervical component) are present. Performed by: Gayathri Gurrola, Maintenance Painter Apprentice (ASCP) . 02 Note: Note 02 The [...] <-Panic Low,>-Panic High,A-Abnormal,AA-Critical Abnormal Performed at: [address] [address] Ruth Maradiaga MD, BRUSH-SPATULA CERVIX ENDOCERVIX [facility] MR head/brain wo/w conon MR head/brain wo/w con [facility] [place] [address] MRI Report Signed Patient: Leesa Shrestha MR#: [id number] : 1975 Acct:[id number] Age/Sex: 48 / F ADM Date: 12/10/23 Loc: MR Room: Type: [facility] Attending Dr: Sergey Valenzuela DO Copies to: [...] Rica Caldera M.D.12/10/2023 8:14 AM Dictation Location: [facility]- Transcribed By: [facility] 12/10/23813 Dictated By: Rica Caldera MD 12/10/23801 Signed By: 12/10/23813 Normal [facility] CT angio neckon 11-18-2023 CT angio neck [facility] [place] [address] CT Scan Report Signed Patient: Leesa Shrestha MR#: [id number] : 1975 Acct:[id number] Age/Sex: 47 / F ADM Date: 11/18/23 Loc: CT Room: Type: [facility] Attending Dr: Sergey Valenzuela DO Copies to: Sergey Valenzuela DO Ordering Provider: Sergey Valenzuela DO Date of Service: 11/18/23 CT/CT angio neck: OCULARMOTOR ([id number]) CT/CT angio head: OCULARMOTOR CT angio head, [...] Doc Gallardo M.D.11/18/2023 5:47 PM Dictation Location: [place] [address] Transcribed By: [facility] 11/18/231746 Dictated By: Doc Gallardo II, MD 11/18/231739 Signed By: 11/18/231746 Normal [facility] ALL CBC WITH AUTO DIFFon BASOPHILS ABSOLUTE AUTO 0.0 [facility] Basophils/100 WBC (Bld) 0.8 % 0.2 - 2.0 % [facility] Eosinophils/100 WBC (Bld) 2.1 % 0.9 - 7.0 % [facility] Erythrocyte distribution width (RBC) [Ratio] 11.6 % 11.0 - 15.0 % [facility] Hematocrit (Bld) [Volume fraction] 40.5 % 36.0 - 48.0 % [facility] Hemoglobin (Bld) [Mass/Vol] 13.6 g/dL 12.0 - 16.0 g/dL [facility] IMMATURE GRANULOCYTES ABS AUTO 0.00 [facility] Immature granulocytes/100 WBC (Bld) 0.0 % 0.0 - 0.5 % [facility] Interpretation and review of laboratory results Abnormal [facility] LYMPHOCYTES ABSOLUTE AUTO 1.3 [facility] Lymphocytes/100 WBC (Bld) 34.4 % 20.5 - 60.0 % [facility] MCH (RBC) [Entitic mass] 32.2 pg 26.7 - 34.0 pg [facility] MCHC (RBC) [Mass/Vol] 33.6 g/dL 29.9 - 35.2 g/dL [facility] MCV (RBC) [Entitic vol] 96.0 fL 81.0 - 99.0 fL [facility] MONOCYTES ABSOLUTE AUTO 0.3 [facility] Monocytes/100 WBC (Bld) 7.9 % 1.7 - 12.0 % [facility] NEUTROPHILS ABSOLUTE AUTO 2.1 [facility] Neutrophils/100 WBC (Bld) 54.8 % 43.0 - 75.0 % [facility] Platelet mean volume (Bld) [Entitic vol] 9.9 fL 9.5 - 13.5 fL [facility] are [facility] EO # 0.1 [facility] PLT 208 [facility] RBC 4.22 [facility] WBC 3.9 Low [facility] MG MAMM SCREEN 3D JEWEL CADon 06-05-2022 MG MAMM SCREEN 3D JEWEL CAD Patient: LEESA SHRESTHA Exam Date: 06/05/2022 : 1975 Gender:F Ordering : DR ALEX REGALADO . Admission #: [id number] Family : Order #: [id number] CLICK HERE TO VIEW EXAM RADIOLOGY REPORT [...] lung cancer at age 59. LOCATION: [facility] BREAST COMPOSITION: Heterogeneously dense,which may obscure [...] Rajesh Olvera M.D. on 06/05/2022 at 14:03 [facility] PAP ACOG PANEL 2: 30 to 65on 05-06-2022 . . Normal [facility] Comment on above: Result Comment: Perf ormed at: WB Performed By: #### [id number] #### [facility] [address] [place] [address] Dr. Maxi Franco Age Gdln ACOG Testing 30-65 [facility] Comment on above: Performed By: #### [id number] #### [facility] [address] [place] [address] Dr. Maxi Franco DIAGNOSIS: Comment Normal [facility] Comment on above: Result Comment: NEGA TIVE FOR INTRAEPITHELIAL LESION OR MALIGNANCY. Performed at: WB Performed By: #### [id number] #### [facility] [address] [place] [address] Dr. Maxi Franco HPV Aptima Negative Normal Negative [facility] Comment on above: Result Comment: This nucleic acid amplification test detects fourteen high-risk HPV types (16,18,31,33,35,39,45,51,52,56,58,59,66,68) without differentiation. Performed at: =G Performed By: #### [id number] #### [facility] [address] [place] [address] Dr. Maxi Franco HPV Genotype Reflex Comment Normal [facility] Comment on above: Result Comment: Crit eria not met, HPV Genotype not performed. Performed at: WB Performed By: #### 4 [id number] #### [facility] [address] [place] [address] Dr. Maxi Franco Methodology: Comment Normal [facility] Comment on above: Result Comment: This liquid based ThinPrep(R) pap test was screened with the use of an image guided system. Performed at: WB Performed By: #### [id number] #### [facility] [address] [address] [address] Maxi Franco Note: Comment Normal [facility] Comment on above: Result Comment: The Pap smear is a screening test designed to aid in the detection of premalignant and malignant conditions of the uterine cervix. It is not a diagnostic procedure and should not be used as the sole means of detecting cervical cancer. Both false-positive and false-negative reports do occur. . Performed at: WB Performed By: #### [id number] #### [facility] [address] [address] [address] Maxi Franco Performed by: Comment Normal [facility] Comment on above: Result Comment: Carolina Mitchell, Maintenance Painter Apprentice (ASCP) Performed at: WB Performed By: #### [id number] #### [facility] [address] [place] [address] Dr. Maxi Franco Specimen adequacy: Comment Normal [facility] Comment on above: Result Comment: Sati sfactory for evaluation. Endocervical and/or squamous metaplastic cells (endocervical component) are present. Performed at: WB Performed By: #### 4 [id number] #### [facility] [address] [address] [address] Maxi Franco MG MAMM DX 3D RT CADon 12-12 MG MAMM DX 3D RT CAD Patient: KEVIN SHRESTHA Exam Date: 12/12/2021 : 1975 Gender:F Ordering : DR ALEX REGALADO . Admission #: [id number] Family : Order #: [id number] CLICK HERE TO VIEW EXAM RADIOLOGY REPORT [...] lung cancer at age 59. LOCATION: [facility] BREAST COMPOSITION: Heterogeneously dense,which may obscure [...] Plata MD on 12/12/2021 at 09:47 Normal [facility] Vital Signs Date Time Vital Sign Value Performing Clinician Marta gomez 12-13-2024 11:37-0400 Body height 162.6 cm Taylor [place] Work Phone: [facility] 12-13-2024 11:37-0400 Body mass index (BMI) [Ratio] 27.29 kg/m2 [place] Work Phone: [facility] 12-13-2024 11:37-0400 Body weight 72.12 kg Taylor Martinez PA Work Phone: [facility] 12-13-2024 11:37-0400 Diastolic blood pressure 76 mm[Hg] Taylor Martinez PA Work Phone: [facility] 12-13-2024 11:37-0400 Systolic blood pressure 128 mm[Hg] Taylor Martinez PA Work Phone: [facility] 05-04-2024 15:45-0500 Body mass index (BMI) [Ratio] 27.09 kg/m2 Alex Sabine DO Work Phone: [facility] 05-04-2024 15:45-0500 Body weight 71.58 kg Alex Sabine DO Work Phone: [facility] 05-04-2024 15:45-0500 Diastolic blood pressure 86 mm[Hg] Alex Sabine DO Work Phone: [facility] 05-04-2024 15:45-0500 Systolic blood pressure 140 mm[Hg] Alex Sabine DO Work Phone: [facility] 01-06-2024 11:03-0400 Body height 162.6 cm Rowdy Gallagher MD Work Phone: [facility] 01-06-2024 11:03-0400 Body mass index (BMI) [Ratio] 26.43 kg/m2 Rowdy Gallagher MD Work Phone: [facility] 01-06-2024 11:03-0400 Body temperature 97.5 [degF] Rowdy Gallagher MD Work Phone: [facility] 01-06-2024 11:03-0400 Body weight 69.85 kg Rowdy Gallagher MD Work Phone: [facility] 01-06-2024 11:03-0400 Diastolic blood pressure 78 mm[Hg] Rowdy Gallagher MD Work Phone: [facility] 01-06-2024 11:03-0400 Heart rate 94 /min Rowdy Gallagher MD Work Phone: [facility] 01-06-2024 11:03-0400 Respiratory rate 22 /min Rowdy Gallagher MD Work Phone: [facility] 01-06-2024 11:03-0400 SaO2% (BldA) [Mass fraction] 98 % Rowdy Gallagher MD Work Phone: [facility] 01-06-2024 11:03-0400 Systolic blood pressure 128 mm[Hg] Rowdy Gallagher MD Work Phone: [facility] 12-30-2023 09:33-0400 Body mass index (BMI) [Ratio] 26.33 kg/m2 Sergey Valenzuela DO Work Phone: [facility] 12-30-2023 09:33-0400 Body weight 69.58 kg Sergey Valenzuela DO Work Phone: [facility] 12-30-2023 09:33-0400 Diastolic blood pressure 81 mm[Hg] Sergey Valenzuela DO Work Phone: [facility] 12-30-2023 09:33-0400 Heart rate 81 /min Christopher Bianca DO Work Phone: [facility] 12-30-2023 09:33-0400 SaO2% (BldA) [Mass fraction] 98 % Christopher Bianca DO Work Phone: [facility] 12-30-2023 09:33-0400 Systolic blood pressure 123 mm[Hg] Christopher Bianca DO Work Phone: [facility] 12-10-2023 07:28-0400 Body height 162.56 cm MD Rowdy Gallagher Work Phone: 12-10-2023 07:28-0400 Body weight 72.12 kg MD Rowdy Gallagher Work Phone: 11-18-2023 13:18-0400 Body height 162.6 cm Christopher Bianca DO Work Phone: [facility] 11-18-2023 13:18-0400 Body mass index (BMI) [Ratio] 25.58 kg/m2 Christopher Bianca DO Work Phone: [facility] 11-18-2023 13:18-0400 Body weight 67.59 kg Christopher Bianca DO Work Phone: [facility] 11-18-2023 13:18-0400 Diastolic blood pressure 101 mm[Hg] Christopher Bianca DO Work Phone: [facility] 11-18-2023 13:18-0400 Heart rate 82 /min Christopher Bianca DO Work Phone: [facility] 11-18-2023 13:18-0400 Systolic blood pressure 148 mm[Hg] Christopher Bianca DO Work Phone: [facility] 11-17-2023 09:21-0400 Body height 162.6 cm Tony Mercedes DO Work Phone: [facility] 11-17-2023 09:21-0400 Body mass index (BMI) [Ratio] 25.58 kg/m2 Tony Mercedes DO Work Phone: [facility] 11-17-2023 09:21-0400 Body weight 67.59 kg Tony Long DO Work Phone: [facility] 11-17-2023 09:21-0400 Diastolic blood pressure 70 mm[Hg] Tony Long DO Work Phone: [facility] 11-17-2023 09:21-0400 Heart rate 57 /min Tony Long DO Work Phone: [facility] 11-17-2023 09:21-0400 Respiratory rate 16 /min Tony Long DO Work Phone: [facility] 11-17-2023 09:21-0400 SaO2% (BldA) [Mass fraction] 98 % Tony Long DO Work Phone: [facility] 11-17-2023 09:21-0400 Systolic blood pressure 126 mm[Hg] Tnoy Long DO Work Phone: [facility] 11-12-2023 10:33-0400 Body height 162.6 cm Rowdy Gallagher MD Work Phone: [facility] 11-12-2023 10:33-0400 Body mass index (BMI) [Ratio] 25.23 kg/m2 Rowdy Gallagher MD Work Phone: [facility] 11-12-2023 10:33-0400 Body temperature 97.3 [degF] Rowdy Gallagher MD Work Phone: [facility] 11-12-2023 10:33-0400 Body weight 66.68 kg Rowdy Gallagher MD Work Phone: [facility] 11-12-2023 10:33-0400 Diastolic blood pressure 80 mm[Hg] Rowdy Gallagher MD Work Phone: [facility] 11-12-2023 10:33-0400 Heart rate 87 /min Rowdy Gallagher MD Work Phone: [facility] 11-12-2023 10:33-0400 Respiratory rate 20 /min Rowdy Gallagher MD Work Phone: [facility] 11-12-2023 10:33-0400 SaO2% (BldA) [Mass fraction] 99 % Rowdy Gallagher MD Work Phone: [facility] 11-12-2023 10:33-0400 Systolic blood pressure 130 mm[Hg] Rowdy Gallagher MD Work Phone: [facility] Encounters Encounter Date Encounter Type Care Provider Facility Start: 12-13-2024 End: 12-13-2024 Bamboo flowsheet [place] Work Phone: [facility] [place] [facility] Start: 12-13-2024 End: 12-13-2024 Bamboo flowsheet [place] Work Phone: [facility] [place] [facility] Start: 12-13-2024 End: 12-13-2024 Office outpatient visit 15 minutes Taylor [place] Work Phone: [facility] [place] [facility] Comment on above: Yeast infection (Courtney henry Dx); Rash, skin Start: 12-13-2024 End: 12-13-2024 ambulatory TAYLOR MARTINEZ Not Available Start: 07-07-2024 End: 07-07-2024 Clinisync Result Encounter Generic External Data Provider [facility] External Department Unsolicited Start: 07-07-2024 End: 07-07-2024 Clinisync Result Encounter Generic External Data Provider [facility] External Department Unsolicited Start: 06-12-2024 End: 06-12-2024 ambulatory ALEX SABINE Not Available Start: 06-12-2024 End: 06-12-2024 Bamboo flowsheet Alex Sabine DO Work Phone: [facility] Start: 06-12-2024 End: 06-12-2024 Bamboo flowsheet Alex Sabine DO Work Phone: [facility] Start: 05-04-2024 End: 05-04-2024 Patient encounter procedure Alex Sabine DO Work Phone: [facility] Start: 05-04-2024 End: 05-04-2024 Periodic preventive med est patient 40-64yrs Alex Sabine DO Work Phone: [facility] Comment on above: Well woman exam with routine gynecological exam; Encounter for screening mammogram for malignant neoplasm of breast; Vaginal discharge; Encounter for weight management; Night sweats; Hot flashes; Mood changes Start: 05-04-2024 End: 05-04-2024 ambulatory ALEX SABINE Not Available Start: 05-04-2024 End: 05-04-2024 Bamboo flowsheet Alex Sabine DO Work Phone: [facility] Start: 05-04-2024 End: 05-09-2024 Bamboo flowsheet Alex Sabine DO Work Phone: [facility] Start: 05-04-2024 End: 05-09-2024 Clinisync Result Encounter Generic External Data Provider [facility] External Department Unsolicited Start: 01-21-2024 End: 01-24-2024 Refill Rowdy Gallagher MD Work Phone: [facility] Comment on above: Migraine without [...] 25 minutes Christopher Bianca DO [facility] Comment on above: 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, left (Primary Dx); Family history of brain aneurysm; History of migraine Start: 12-30-2023 End: 12-30-2023 ambulatory SERGEY VALENZUELA Not Available Start: 12-10-2023 End: 12-10-2023 Patient encounter procedure MD Rowdy Gallagher Work Phone: [facility] [place] Work Phone: Start: 12-10-2023 End: 12-10-2023 ambulatory MD Rowdy Gallagher Work Phone: [facility] Work Phone: Start: 11-18-2023 End: 11-18-2023 Patient encounter procedure MD Rowdy Gallagher Work Phone: [facility]-CT Scan [facility] [place] Work Phone: Start: 11-18-2023 End: 11-18-2023 ambulatory MD Rowdy Gallagher Work Phone: [facility] Work Phone: Start: 11-18-2023 End: [...] blood pressure reading; History of migraine Start: 11-17-2023 End: 11-17-2023 Bamboo flowsheet Tony Long DO Work Phone: [facility] Start: 11-17-2023 End: 11-17-2023 Bamboo flowsheet Tony Long DO Work Phone: [facility] Start: 11-17-2023 End: 11-17-2023 Patient encounter procedure Tony Long DO Work Phone: [facility] Comment on above: Screening for malign ant neoplasm of colon (Primary Dx) Start: 11-12-2023 End: 11-12-2023 Bamboo flowsheet Rowdy Gallagher MD Work Phone: [facility] Start: 11-12-2023 End: 11-12-2023 Bamboo flowsheet Rowdy Gallagher MD Work Phone: [facility] Start: 11-12-2023 End: 11-12-2023 Clinisync Result Encounter Rowdy Gallagher MD Work Phone: [facility] External Department Unsolicited Start: 11-12-2023 End: 11-12-2023 Patient encounter procedure Rowdy Gallagher MD Work Phone: [facility] Start: 11-12-2023 End: 11-12-2023 Periodic preventive med est patient 40-64yrs Rowdy Gallagher MD Work Phone: [facility] Comment on above: Annual physical exam (Primary Dx); Colon cancer screening Start: 06-05-2022 End: 06-06-2022 ambulatory ALEX SABINE Facility: Start: 04-29-2022 End: 04-29-2022 ambulatory ALEX SABINE Facility: Start: 12-12-2021 End: 12-13-2021 ambulatory ALEX SABINE Facility: Procedures Date Procedure Procedure Detail Performing Clinician Start: 07-07-2024 MM TOMOSYNTHESIS SCR EENING BI Generic External Data Provider Start: 07-07-2024 Mammography Generic Pr ovider Start: 05-04-2024 IGP,APTIMA HPV,AGE GDLN Alex Regalado DO Work Phone: Start: 05-04-2024 Microscopic observat ion [Identifier] in Cervix by Cyto stain Alex Regalado DO Work Phone: Start: 12-10-2023 MRI of [...] Screening for malign ant neoplasm of cervix [facility] Start: 07-07-2025 Screening for malign ant neoplasm of breast Mammogram [facility] Start: 05-08-2025 End: 05-08-2025 Patient encounter procedure [facility] Start: 12-13-2024 End: 12-13-2024 Patient encounter procedure 12/13/2024 11:20 AM EDT Office Visit ELIAZAR OLIVO [address] [place] [address] Taylor Martinez PA [address], [place] [address] Arrived ELIAZAR OLIVO Comment on above: Arrived Start: 11-20-2024 Influenza vaccination [facility] Start: 07-19-2024 End: 07-19-2024 Patient encounter procedure 07/19/2024 3:50 PM EDT Office Visit [facility] [address] [place] [address] Alex Regalado, DO [address] [place] [address] [facility] Start: 06-12-2024 End: 06-12-2024 Patient encounter procedure 06/12/2024 3:50 PM EDT Office Visit [facility] [address] [place] [phone] Alex Regalado, DO [address] [place] [address] Arrived [facility] Comment on above: Arrived Start: 06-10-2024 Screening for malign ant neoplasm of breast Mammogram [facility] Start: 06-06-2024 End: 06-06-2024 Patient encounter procedure 06/06/2024 2:20 PM EDT Office Visit [facility] [address] [place] [phone] Alex Regalado, DO [address] [place] [address] [facility] Start: 05-04-2024 End: 05-04-2024 Patient encounter procedure 05/04/2024 3:15 PM EST Office Visit [facility] [address] [place] [phone] Alex Regalado, DO [address] [place] [address] Arrived [facility] Comment on above: Arrived Start: 05-04-2024 End: 07-02-2025 MG Breast - bilateral Screening Bilateral screening mammogram Imaging Routine Encounter for screening mammogram for malignant neoplasm of breast Expected: 05/04/2024 (Approximate), Expires: 07/02/2025 [facility] Work Phone: Comment on above: Expected: 05/04/2024 (Approximate), Expires: 07/02/2025 Start: 05-04-2024 End: 05-04-2024 Patient encounter procedure 05/04/2024 8:30 AM EST Office Visit [facility] [address] [place] [phone] Alex Regalado DO [address] [place] [address] [facility] Start: 04-27-2024 End: 04-27-2024 Patient encounter procedure 04/27/2024 8:40 AM EST Office Visit [facility] [place] [address] [place] [phone] Lakeshia Moise NP [address] [place], [place] [phone] [facility] [place] [facility] Start: 01-06-2024 End: 01-06-2024 Patient encounter procedure 01/06/2024 11:00 AM EDT Office Visit [facility] [address] [place] [phone] Rowdy Gallagher MD [address] [place] [address] Arrived [facility] Comment on above: Arrived Start: 12-30-2023 End: 12-30-2023 Patient encounter procedure 12/30/2023 9:30 AM EDT Office Visit [facility] [place] [address] [place] [phone] Sergey Valenzuela DO [address] [place], [place] [id number] Arrived [facility] [place] [facility] Comment on above: Arrived Start: 12-06-2023 End: 12-06-2023 Patient encounter procedure 12/06/2023 10:30 AM EDT Office Visit [facility] [place] [address] [place] [phone] Sergey Valenzuela DO [address] [place] [address] [facility] [address] Start: 11-21-2023 Influenza vaccination Influenza Vacc ine (#1) [facility] Start: 11-18-2023 End: 11-17-2024 CTA Head vessels and Neck vessels WO and W contrast IV CT angiogram head and neck Imaging 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, left Family history of brain aneurysm Expected: 11/18/2023, Expires: 11/17/2024 [facility] Work Phone: Comment on above: Expected: 11/18/2023 , Expires: 11/17/2024 Start: 11-18-2023 End: 11-17-2024 MR Brain WO and W contrast IV MR brain w and wo contrast routine Imaging High Priority 3rd cranial nerve palsy, left Family history of brain aneurysm Expected: 11/18/2023, Expires: 11/17/2024 [facility] Comment on above: Expected: 11/18/2023 , Expires: 11/17/2024 Start: 11-18-2023 End: 11-18-2023 Patient encounter procedure 11/18/2023 1:30 PM EDT Office Visit [facility] [address] [place] [phone] Sergey Valenzuela DO [address] [place], [place] [phone] Arrived [facility] Comment on above: Arrived Start: 11-17-2023 End: 11-17-2023 Patient encounter procedure 11/17/2023 9:15 AM EDT Office Visit ELIAZAR MILLER [address] [place] [address] Tony Long DO [address] [place] [address] Arrived [facility] Comment on above: Arrived Start: 11-12-2023 End: 11-11-2024 Basic metabolic 1998 panel - Serum or Plasma Basic metabolic panel Lab Routine Annual physical exam Expected: 11/12/2023 (Approximate), Expires: 11/11/2024 [facility] Comment on above: Expected: 11/12/2023 (Approximate), Expires: 11/11/2024 Start: 11-12-2023 End: 11-11-2024 CBC W Auto Differential panel - Blood CBC and differential Lab Routine Annual physical exam Expected: 11/12/2023 (Approximate), Expires: 11/11/2024 [facility] Comment on above: Expected: 11/12/2023 (Approximate), Expires: 11/11/2024 Start: 11-12-2023 End: 11-11-2024 Hemoglobin A1c/Hemoglobin.total in Blood Hemoglobin A1c Lab Routine Annual physical exam Expected: 11/12/2023 (Approximate), Expires: 11/11/2024 [facility] Work Phone: Comment on above: Expected: 11/12/2023 (Approximate), Expires: 11/11/2024 Start: 11-12-2023 End: 11-11-2024 Hepatic function 2000 panel - Serum or Plasma Hepatic function panel Lab Routine Annual physical exam Expected: 11/12/2023 (Approximate), Expires: 11/11/2024 [facility] Comment on above: Expected: 11/12/2023 (Approximate), Expires: 11/11/2024 Start: 11-12-2023 End: 11-11-2024 Lipid 1996 panel - Serum or Plasma Lipid panel Lab Routine Annual physical exam Expected: 11/12/2023 (Approximate), Expires: 11/11/2024 [facility] Comment on above: Expected: 11/12/2023 (Approximate), Expires: 11/11/2024 Start: 11-12-2023 End: 11-11-2024 Thyrotropin [Units/volume] in Serum or Plasma TSH Lab Routine Annual physical exam Expected: 11/12/2023 (Approximate), Expires: 11/11/2024 [facility] Comment on above: Expected: 11/12/2023 (Approximate), Expires: 11/11/2024 Start: 11-12-2023 End: 11-12-2023 Patient encounter procedure 11/12/2023 10:15 AM EDT Office Visit [facility] [address] [place] [address] Rowdy Gallagher MD [address] [place] [address] Arrived [facility] Comment on above: Arrived Start: 2004 Screening for malign ant neoplasm of cervix [facility] Start: 12-06-1995 Screening for malign ant neoplasm of cervix Pap Smear [facility] Start: 1974 Screening for malign ant neoplasm of colon [facility] THIN PREP TIS PAP AN D HR HPV DNA THIN PREP TIS PAP AND HR HPV DNA Pathology and Cytology Routine Well woman exam with routine gynecological exam Ordered: 05/04/2024 [facility] Comment on above: Ordered: 05/04/2024 Immunizations Immunization Date Immunization Notes Care Provider Fa cili 12-29-2022 influenza virus vacc ine, unspecified formulation Rowdy Gallagher MD Work Phone: [facility] Payers Date Payer Category Payer Self-pay 2017 Managed Care HMO (unspecified) [id number] 1974 Unknown [id number] 1974 Unknown [id number] 1974 Unknown [id number] 1974 Unknown [id number] 1974 Unknown [id number] 1974 Unknown [id number] 1974 Unknown [id number] 1974 Unknown [id number] 1959 Private Health Insurance [id number] Unknown [facility] [id number] Unknown [place] BC/BS [id number] Unknown [id number] Unknown [id number] Social History Date Type Detail Facility Tobacco smoking stat us [facility] Unknown if ever smoked [facility] Work Phone: Start: 1975 Sex Assigned At Female Start: 04-08-2023 Tobacco smoking status UTIS Never smoked tobacco [facility] Start: 04-08-2023 [...] to any clubs or organizations such as tenriism groups, unions, fraternal [...] (finding) [facility] Clinical Notes 11-12-2023 to 12-13-2024 ONDINA Grijalva - 12/13/2024 11:20 AM Merlin Claros LPN - 05/04/2024 3:15 PM Berry Gallagher MD - 01/06/2024 11:22 AM Brody Gallagher MD - 01/06/2024 11:00 AM EDT Note Date & Type Note Facility 12-13-2024 History of Present illness Narrative Images from the original note were not included. Reason for Appointment: Patient ID: Leesa Shrestha is a 49 y.o. female who presents for Rash (Pt present today to discuss rash under breast.) Patient presents today for Acute Visit. MEDICATIONS Current Outpatient Medications Medication Instructions montelukast (SINGULAIR) 10 mg, Oral, Nightly Multiple Vitamin (Multi Vitamin) tablet Every 24 hours rizatriptan MAJOR CASE DETECTIVE (Maxalt-MAJOR CASE DETECTIVE) 10 MG disintegrating tablet DISSOLVE 1 TABLET ON THE TONGUE NEEDED AT ONSET OF HEADACHE. MAY REPEAT IN 2 HOURS ONE TIME. SUMAtriptan (IMITREX) 100 mg, Oral, Once as needed ALLERGIES No Known Allergies PROBLEMS Active Ambulatory Problems Diagnosis Date Noted Migraine without aura and without status migrainosus, not intractable 02/26/2023 Non-seasonal allergic rhinitis due to pollen 11/12/2023 Chronic superficial gastritis without bleeding 11/12/2023 Annual physical exam 11/12/2023 Hyperglycemia 11/12/2023 Vision disturbance 11/16/2023 Acute bronchitis due to other specified organisms 01/06/2024 Anxiety with flying 01/06/2024 Resolved Ambulatory Problems Diagnosis Date Noted No Resolved Ambulatory Problems Past Medical History: Diagnosis Date Abdominal pain, generalized BMI 23.0-23.9, adult Breast mass 2021 Dysmenorrhea Encounter for gynecological examination (general) (routine) without abnormal findings Migraine Seasonal allergic rhinitis due to pollen HISTORY PAST MEDICAL HISTORY SOCIAL HISTORY Past Medical History: Diagnosis Date Abdominal pain, generalized Anxiety with flying BMI 23.0-23.9, adult Breast mass 2021 Chronic superficial gastritis without bleeding Dysmenorrhea Encounter for gynecological examination (general) (routine) without abnormal findings Migraine Chronic Seasonal allergic rhinitis due to pollen [...] nursing note reviewed. Exam conducted with a meat products demonstrator present. Vitals: Estimated body mass index is 27.29 kg/m as calculated from the following: Height [...] Rosi Obando NP on behalf of: ONDINA Grjialva documented in this encounter [facility] 05-04-2024 History of Present illness Narrative Reason [...] (Multi Vitamin) tablet Every 24 hours rizatriptan MAJOR CASE DETECTIVE (Maxalt-MAJOR CASE DETECTIVE) 10 MG disintegrating tablet DISSOLVE 1 TABLET ON THE TONGUE NEEDED AT ONSET OF HEADACHE. MAY REPEAT IN 2 HOURS ONE TIME. SUMAtriptan (IMITREX) 100 mg, Oral, Once as needed venlafaxine XR (EFFEXOR XR) 37.5 mg, Oral, Daily ALLERGIES No Known Allergies PROBLEMS Active Ambulatory Problems Diagnosis Date Noted Migraine without aura and without status migrainosus, not intractable (CMS/[facility]) 02/26/2023 Non-seasonal allergic rhinitis due to pollen 11/12/2023 Chronic superficial gastritis without bleeding 11/12/2023 Annual physical exam 11/12/2023 Hyperglycemia 11/12/2023 Vision disturbance 11/16/2023 Acute bronchitis due to other specified organisms 01/06/2024 Anxiety with flying ([facility]/HCC) 01/06/2024 Resolved Ambulatory Problems Diagnosis Date Noted No Resolved Ambulatory Problems Past Medical History: Diagnosis Date Abdominal pain, generalized BMI 23.0-23.9, adult Breast mass 2021 Dysmenorrhea Encounter for gynecological examination (general) (routine) without abnormal findings Migraine (CMS/[facility]) Seasonal allergic rhinitis due to pollen HISTORY PAST MEDICAL HISTORY SOCIAL HISTORY Past Medical History: Diagnosis Date Abdominal pain, generalized Anxiety with flying (CMS/[facility]) BMI 23.0-23.9, adult Breast mass 2021 Chronic [...] Alex Regalado DO documented in this encounter [facility] 01-06-2024 History of Present illness Narrative Associated [...] MG tablet s documented in this encounter [facility] 12-30-2023 History of Present illness Narrative Images [...] reflexes are 2+ and symmetric throughout. Coordination: [id number] testing and rapid alternating movements are normal [...] and return instructions documented in this encounter [facility] 11-18-2023 History of Present illness Narrative Images [...] episodes. She was seen by [facility] in [place] recently but did not receive full exam, [...] reflexes are 2+ and symmetric throughout. Coordination: [id number] testing and rapid alternating movements are normal [...] and return instructions documented in this encounter [facility] 11-17-2023 History of Present illness Narrative General [...] clinic hand out for colonoscopy prep rizatriptan MAJOR CASE DETECTIVE (Maxalt-MAJOR CASE DETECTIVE) 10 MG disintegrating tablet DISSOLVE 1 TABLET [...] Ana Long DO documented in this encounter [facility] 11-12-2023 History of Present illness Narrative Associated [...] to General Surgery documented in this encounter [facility] Evaluation note No assessment inform ation available [facility] Work Phone: Evaluation note Diagnosis [...] of colon- Primary documented in this encounter [facility]* Diagnosis 3rd cranial nerve palsy, left- Primary Family history of brain aneurysm Family history of other cardiovascular diseases Elevated blood pressure reading Elevated blood pressure reading without diagnosis of hypertension History of migraine documented in this encounter [facility]* Diagnosis Annual physical exam- Primary Routine general medical examination at a health care facility Colon cancer screening Special screening for malignant neoplasms, colon Acute bronchitis due to other specified organisms- Primary Anxiety with flying (CMS/HCC) Well woman exam with routine gynecological exam Routine gynecological examination Encounter for screening mammogram for malignant neoplasm of breast Vaginal discharge Leukorrhea, not specified as infective Encounter for weight management Night sweats Generalized hyperhidrosis Hot flashes Mood changes Unspecified episodic mood disorder documented in this encounter [facility]* Diagnosis Annual physical exam- Primary Routine general medical examination at a health care facility Colon cancer screening Special screening for malignant neoplasms, colon Acute bronchitis due to other specified organisms- Primary Anxiety with flying Yeast infection- Primary Rash, skin Rash and other nonspecific skin eruption documented in this encounter [facility] HealthcareReason for referral (narrative)* Consultation (Routine) - Pending Review Specialty Diagnoses / Procedures Referred By Nalini shepherd Referred To Contact General Surgery Diagnoses Colon cancer screening Procedures ID OFFICE/OUTPATIENT NEW HIGH MDM 60 MINUTES Rowdy Gallagher MD [address] [place] [address] Tony Long DO [address] [facility] [address] [place] [address] Referral ID Status Reason Start Date Expiration Date Visits Requested Visits Authorized [id number] Pending Review Specialty Services Required 11/12/2023 05/10/2024 1 1 [facility] Summary Purpose Family History No [...] Referral Specialty Diagnoses / Procedures Referred By Contac t Referred To Contact Diagnoses 3rd cranial nerve palsy, left Family history of brain aneurysm Procedures MR brain w and wo contrast routine Sergey Valenzuela DO [address] [place] [address] [facility] Scheduling [address] [address] Referral ID Status Reason Start Date Expiration Date V isits Requested Visits Authorized [id number] Pending Review 11/18/2023 05/16/2024 1 1 Specialty Diagnoses / Procedures Referred By Nalini shepherd Referred To Contact Diagnoses 3rd cranial nerve palsy, left Family history of brain aneurysm Procedures CT angiogram head and neck Sergey Valenzuela DO [address] [place] [address] [facility] Scheduling [address] [place] [address] Referral ID Status Reason Start Date Expiration Date V isits Requested Visits Authorized [id number] Pending Review 11/18/2023 05/16/2024 1 1 Additional Source Comments INFORMATION SOURCE (unrecogn ized section and content) DATE CREATED AUTHOR 06/14/2022 [facility] [place] [facility] DATE CREATED AUTHOR AUTHOR'S ORGANIZ ATION 12/12/2023 [facility] DATE CREATED AUTHOR AUTHOR'S ORGANIZ ATION 12/14/2024 [facility] EPIC Care Teams (unrecognized [...] December 10, 2023 End: December 10, 2023 Resident Care Provider Relationship Specialty Start Date End Date Rowdy Gallagher MD [address] [place] [address] PCP - General Family Medicine 11/12/23 Resident Care Provider Relationship Specialty Start Date End Date Rowdy Gallagher MD [address] [place] [address] PCP - General Family Medicine 11/12/23 Resident Care Provider Relationship Specialty Start Date End Date Rowdy Gallagher MD [address] [place] [address] PCP - General Family Medicine 11/12/23 Resident Care Provider Relationship Specialty Start Date End Date Rowdy Gallagher MD [address] [place] [address] PCP - General Family Medicine 11/12/23 Resident Care Provider Relationship Specialty Start Date End Date Rowdy Gallagher MD [address] [place] [address] PCP - General Family Medicine 11/12/23 Resident Care Provider Relationship Specialty Start Date End Date Rowdy Gallagher MD [address] [place] [address] PCP - General Family Medicine 11/12/23 Resident Care Provider Relationship Specialty Start Date End Date Rowdy Gallagher MD [address] [place] [address] PCP - General Family Medicine 11/12/23 Resident Care Provider Relationship Specialty Start Date End Date Rowdy Gallagher MD [address] [place] [address] PCP - General Family Medicine 11/12/23 Resident Care Provider Relationship Specialty Start Date End Date Rowdy Gallagher MD [address] [place] [address] PCP - General Family Medicine 11/12/23 Resident Care Provider Relationship Specialty Start Date End Date Rowdy Gallagher MD [address] [place] [id number] PCP - General Family Medicine 11/12/23 Resident Care Provider Relationship Specialty Start Date End Date Rowdy Gallagher MD [address] [place] [phone] PCP - General Family Medicine 11/12/23 Resident Care Provider Relationship Specialty Start Date End Date Rowdy Gallagher MD [address] [place] [address] PCP - General Family Medicine 11/12/23 Resident Care Provider Relationship Specialty Start Date End Date Rowdy Gallagher MD [address] [place] [address] PCP - General Family Medicine 11/12/23 Resident Care Provider Relationship Specialty Start Date End Date Rowdy Gallagher MD [address] [place] [address] PCP - General Family Medicine 11/12/23 Resident Care Provider Relationship Specialty Start Date End Date Rowdy Gallagher MD [address] [place] [address] PCP - General [facility] 11/12/23 Resident Care Provider Relationship Specialty Start Date End Date Rowdy Gallagher MD [address] [place] [address] PCP - [facility] 11/12/23 Resident Care Provider Relationship Specialty Start Date End Date Rowdy Gallagher MD PCP - [facility] 11/12/23 Resident Care Provider Relationship Specialty Start Date End Date Rowdy Gallagher MD PCP - General [facility] 11/12/23 Goals (unrecognized section and content) Goals [...] Field Change Reason Comments Well Women Visit Reason Comments Rash Pt present today to discuss rash under breast. FOR RECORDS PERTAINING TO PATIENTS WHO ARE [...] BE BASED ON THE PRIMARY CLINICAL RECORDS. [employer] [facility]. provides no warranty or guarantee of the accuracy or completeness of information in this document.
[2024-12-22 11:12] LABS: Hematocrit 41.3 % (36.0-48.0); Hemoglobin 14.0 g/dL (12.0-16.0); Immature Granulocytes Abs Auto 0.01 10^3/uL (0.00-0.03); Immature Granulocytes Pct Auto 0.2 % (0.0-0.5); Lymphocytes Absolute Auto 1.3 10^3/uL (1.2-3.8); Mean Corpuscular HGB Conc 33.9 g/dL (29.9-35.2); Mean Corpuscular Hemoglobin 32.4 pg (26.7-34.0); Mean Corpuscular Volume 95.6 fL (81.0-99.0); Platelet Count 246 10^3/uL (150-450); Red Blood Count 4.32 10^6/uL (4.20-5.40); White Blood Count 6.2 10^3/uL (4.0-11.0)
[2024-12-22 11:34] LABS: Alanine Aminotransferase 25 U/L (14-59); Albumin Globulin Ratio 1.1; Albumin Level 4.0 g/dL (3.4-5.0); Alkaline Phosphatase 32 U/L (46-116); Anion Gap 12.3; Aspartate Amino Transferase 28 U/L (15-37); Blood Urea Nitrogen 14.0 mg/dL (7.0-18.0); Calcium 9.5 mg/dL (8.5-10.1); Carbon Dioxide 29.7 mmol/L (21.0-32.0); Chloride 105 mmol/L (98-107); Cholesterol 230 mg/dL (<=200); Estimated GFR (African America >60 (>=60 mL/min/1.73m^2); Estimated GFR (Non-African Ame >60 (>=60 mL/min/1.73m^2); Globulin 3.6 g/dL; Glucose 89 mg/dL (74-106); HDL Cholesterol 79 mg/dL (40-60); Potassium 4.0 mmol/L (3.5-5.1); Sodium 143 mmol/L (136-145); Thyroid Stimulating Hormone 0.770 uIU/mL (0.358-3.740); Total Protein 7.6 g/dL (6.4-8.2); Triglycerides 55 mg/dL (<=150); VLDL CHOLESTEROL 11.0 mg/dL
== END 2024-12-22 10:30 | disposition home or self-care (01) ==
LOC: LAB 10:34
PROVIDERS: PCP Family Medicine; Visit Provider Family Medicine
DX: Z00.00 Encounter for general adult medical examination without abnormal findings (principal)
CPT/HCPCS: 36415; 80053; 80061; 83036; 84443; 85025